=== PATIENT | female | born 1935 | race Caucasian/White ===

== ENCOUNTER 2018-03-15 18:41 | Emergency (ER) | payer MEDICARE, MEDICAID ==
[2018-03-15 18:44] VITALS: TEMP 97.3
[2018-03-15 19:08] LABS: HEMOGLOBIN 12.4 g/dL (11.0-16.0); MEAN CELL VOLUME 96.2 fL (81.0-99.0); MEAN CORPUSCULAR HEMOGLOBIN 33.2 pg (27.0-31.0); MEAN CORPUSCULAR HGB CONC 34.5 g/dL (33.0-37.0); MEAN PLATELET VOLUME 8.1 fL (7.2-11.7); RBC 3.73 Mil/uL (3.80-5.20); RED CELL DISTRIBUTION WIDTH 13.7 % (11.5-14.5); WHITE BLOOD COUNT 7.2 K/uL (4.8-10.8)
[2018-03-15 19:42] LABS: ALB/GLOB RATIO 1.2 (1.0-2.1); ALBUMIN 3.9 g/dL (3.5-5.0); ALT/SGPT 30 U/L (9-52); AST/SGOT 48 U/L (14-36); BLOOD UREA NITROGEN 21 mg/dL (7-17); CALCIUM 8.1 mg/dl (8.6-10.4); GFR AFRICAN-AMERICAN > 60; GFR NON-AFRICAN AMERICAN > 60
[2018-03-15] MEDS ORDERED: Sodium Chloride 0.9% 1,000 ML IV SCH (20:15)
[2018-03-15] MEDS ORDERED: Iodixanol 320 MG/ML 100 ML BOTTLE IV ONE (21:46)
--- NOTE | 2018-03-15 22:50 | CT ---
EXAM: CT Abdomen and Pelvis With Intravenous Contrast CLINICAL HISTORY: 82 years old, female; Pain; Abdominal pain; Generalized; Patient HX: Diarrhea; Additional info: Diffuse abdominal tenderness with diarrhea TECHNIQUE: Axial computed tomography images of the abdomen and pelvis with intravenous contrast. All CT scans at this facility use one or more dose reduction techniques, viz.: automated exposure control; ma/kV adjustment per patient size (including targeted exams where dose is matched to indication; i.e. head); or iterative reconstruction technique. Coronal and sagittal reformatted images were created and reviewed. CONTRAST: 100 mL of visipaque 320 administered intravenously. COMPARISON: No relevant prior studies available. FINDINGS: Lung bases: Hyperinflation of lung bases. Minimal atelectasis/scarring. Mediastinum: Moderate to large hiatal hernia. ABDOMEN: Liver: No mass. No portal venous gas. Gallbladder and bile ducts: Gallbladder not visualized. Common bile duct: 1.2 cm in diameter. Pancreas: No ductal dilation. No mass. Spleen: No splenomegaly. Adrenals: Mild hypertrophy of adrenal glands. Kidneys and ureters: Too small to characterize lesion within RIGHT kidney. No hydronephrosis. Stomach and bowel: Fluid within small bowel. Fluid/loose stool within large bowel. Probable segmental areas of minimal to mild mural thickening of large bowel. Minimal to mild mucosal enhancement of large bowel. Scattered areas of pneumatosis of large bowel, most pronounced descending colon. No obstruction. PELVIS: Appendix: No findings to suggest acute appendicitis. Bladder: Borderline bladder wall thickening, 4-5 mm. Incomplete distention, limiting evaluation. Reproductive: Hysterectomy. ABDOMEN and PELVIS: Intraperitoneal space: No significant fluid collection. No free air. Bones/joints: Insufficiency fractures of sacral ala, right greater than left. Healing left superior and inferior pubic rami fractures. Moderate compression deformity T10 vertebral body, subacute to chronic. Mild compression deformity T11 vertebral body, chronic. Degenerative changes of spine. Soft tissues: Unremarkable. Vasculature: [id number] atherosclerotic disease. No aneurysm. Lymph nodes: No pathologically enlarged lymph nodes. IMPRESSION: 1. Probable mild colitis with scattered areas of pneumatosis. 2. Biliary ductal dilatation. Correlate with laboratory values. Consider MRCP. 3. Mild cystitis vs underdistention. Correlate with urinalysis. 4. Incidental/non-acute findings are described above.
[2018-03-15] MEDS ORDERED: Potassium Chloride 20 mEq ER Tab PO ONE (23:18)
[2018-03-16 02:02] VITALS: RESP 18
--- NOTE | 2018-03-16 02:11 | C.PDOC ---
History Of Present Illness 82 year old female presents to the ER with a complaint of watery diarrhea for the past few days. Patient reports she has been eating normally. Denies change in diet, nausea, vomiting, fever, hematuria, or dysuria. Chief Complaint (Nursing): GI Problem History Per: Patient History/Exam Limitations: no limitations Onset/Duration Of Symptoms: Days Current Symptoms Are (Timing): Still Present Quality Of Discomfort: Unable To Describe Associated Symptoms: denies: Fever, Nausea, Vomiting, Loss Of Appetite, Urinary Symptoms Exacerbating Factors: None Alleviating Factors: None Recent travel outside of the [place]: No Abnormal Vaginal Bleeding: No Past Medical History Reviewed: Historical Data, Nursing Documentation, Vital Signs Vital Signs: Last Vital Signs Temp 97.3 F L 03/15/18 18:42 Pulse 75 03/16/18 04:40 Resp 18 03/16/18 04:40 BP 119/72 03/16/18 04:40 Pulse Ox 98 03/16/18 04:40 - Medical History PMH: Seizures Family History: States: Stroke (3 years ago with right sided weakness) - Social History Hx Tobacco Use: No Hx Alcohol Use: No Hx Substance Use: No - Immunization History Hx Influenza Vaccination: Yes Hx Pneumococcal Vaccination: Yes Review Of Systems Constitutional: Negative for: Fever, Chills Cardiovascular: Negative for: Chest Pain, Palpitations Respiratory: Negative for: Cough, Shortness of Breath Gastrointestinal: Positive for: Diarrhea. Negative for: Nausea, Vomiting Genitourinary: Negative for: Dysuria, Hematuria Physical Exam - Physical Exam Appears: Non-toxic Skin: Normal Color, Warm, Dry Head: Atraumatic, Normacephalic Eye(s): bilateral: Normal Inspection Oral Mucosa: Moist Chest: Symmetrical, No Tenderness Cardiovascular: Rhythm Regular Respiratory: Normal Breath Sounds, No Rales, No Rhonchi, No Wheezing Gastrointestinal/Abdominal: Soft, Tenderness (Mild right sided), No Guarding, No Rebound Neurological/Psych: Oriented x3, Normal Speech ED Course And Treatment - Laboratory Results Result Diagrams: 03/15/18 19:04 03/15/18 19:04 O2 Sat by Pulse Oximetry: 97 (room air) Pulse Ox Interpretation: Normal Progress Note: CT abd/pel and blood work ordered. Potassium and IV fluids administered. Disposition - Disposition Referrals: Todd Cast MD [Staff Provider] - Disposition: HOME/ ROUTINE Disposition Time: 22:55 Condition: IMPROVED Additional Instructions: Thank you for letting us take care of you today. The emergency medical care you received today was directed at your acute symptoms. If you were prescribed any medication, please fill it and take as directed. It may take several days for your symptoms to resolve. Return to the Emergency Department if your symptoms worsen, do not improve, or if you have any other problems. Please contact your doctor or call one of the physicians/clinics you have been referred to that are listed on the Patient Visit Information form that is included in your discharge packet. Bring any paperwork you were given at discharge with you along with any medications you are taking to your follow up visit. Our treatment cannot replace ongoing medical care by a primary care provider (PCP) outside of the emergency department. Thank you for allowing the [facility] team to be part of your care today. Follow up with your doctor in 2-3 days for re-evaluation and further management. Prescriptions: Ciprofloxacin [Cipro] 500 mg PO BID #20 tab metroNIDAZOLE [Flagyl] 500 mg PO Q8 #30 tab Instructions: Microscopic Colitis Forms: [employer] (Hungarian) - Clinical Impression Clinical Impression: Colitis, Diarrhea - Scribe Statement The provider has reviewed the documentation as recorded by the Scribe Jos Carrasquillo All medical record entries made by the Scribe were at my direction and personally dictated by me. I have reviewed the chart and agree that the record accurately reflects my personal performance of the history, physical exam, medical decision making, and the department course for this patient. I have also personally directed, reviewed, and agree with the discharge instructions and disposition.
[2018-03-16 04:40] VITALS: BP 119/72; PULSE 75
[2018-03-16 05:42] VITALS: O2SAT 97
[2018-03-16] MEDS ORDERED: Potassium Chloride 20 mEq ER Tab PO SCH (10:00)
== END 2018-03-16 04:42 | disposition home or self-care (01) ==
LOC: C.ER 18:41
DX: K52.9 Noninfective gastroenteritis and colitis, unspecified (principal); E87.6 Hypokalemia
CPT/HCPCS: 74177; 80053; 85027; 99284; J3480; J7040; Q9967

== ENCOUNTER 2018-05-04 20:01 | Inpatient (IN) | payer MEDICARE, MEDICAID ==
--- NOTE | 2018-05-04 20:59 | C.PDOC ---
History Of Present Illness 82 year old female presents to the ER with friend complaining of generalized itchiness. Patient states her home is infested with bugs. Denies fever or chills. Chief Complaint (Nursing): Abnormal Skin Integrity History Per: Patient History/Exam Limitations: no limitations Onset/Duration Of Symptoms: Days Current Symptoms Are (Timing): Still Present Quality Of Symptoms: Itching Recent travel outside of the [place]: No Past Medical History Reviewed: Historical Data, Nursing Documentation, Vital Signs Vital Signs: Last Vital Signs Temp 98.0 F 05/04/18 20:35 Pulse 85 05/04/18 23:17 Resp 18 05/04/18 23:17 BP 171/87 H 05/04/18 23:17 Pulse Ox 100 05/04/18 23:17 - Medical History PMH: Seizures Surgical History: Cholecystectomy Family History: States: Stroke (3 years ago with right sided weakness) - Social History Hx Tobacco Use: No Hx Alcohol Use: No Hx Substance Use: No - Immunization History Hx Tetanus Toxoid Vaccination: No Hx Influenza Vaccination: Yes Hx Pneumococcal Vaccination: Yes Review Of Systems Constitutional: Negative for: Fever, Chills Cardiovascular: Negative for: Chest Pain, Palpitations Respiratory: Negative for: Cough, Shortness of Breath Skin: Positive for: Rash Physical Exam - Physical Exam Appears: Non-toxic Skin: Warm, Dry, Other (Lesions to extremities, spares the back) Head: Atraumatic, Normacephalic Eye(s): bilateral: Normal Inspection Oral Mucosa: Moist Neck: Normal, Supple Chest: Symmetrical, No Tenderness Cardiovascular: Rhythm Regular Respiratory: Normal Breath Sounds, No Rales, No Rhonchi, No Wheezing Gastrointestinal/Abdominal: Soft, No Tenderness Neurological/Psych: Oriented x3, Normal Speech ED Course And Treatment - Laboratory Results Result Diagrams: 05/04/18 21:10 05/04/18 21:10 O2 Sat by Pulse Oximetry: 100 (Room air) Pulse Ox Interpretation: Normal Progress Note: EKG, blood work, and urinalysis ordered. Disposition Discussed With : Roberto Shafer Doctor Will See Patient In The: Hospital Counseled Patient/Family Regarding: Diagnosis - Disposition Disposition: HOSPITALIZED Disposition Time: 00:09 Condition: STABLE Forms: [facility] [employer] (Estonian) - POA Present On Arrival: None - Clinical Impression Clinical Impression: Skin irritation, Insect bite - Scribe Statement The provider has reviewed the documentation as recorded by the Scribe Jos Carrasquillo All medical record entries made by the Scribe were at my direction and personally dictated by me. I have reviewed the chart and agree that the record accurately reflects my personal performance of the history, physical exam, medical decision making, and the department course for this patient. I have also personally directed, reviewed, and agree with the discharge instructions and disposition.
[2018-05-04 21:13] LABS: BASO % 0.4 % (0.0-2.0); EOS # 0.8 K/uL (0.0-0.7); EOS % 11.9 % (0.0-4.0); HEMOGLOBIN 11.5 g/dL (11.0-16.0); LYMPH % 14.4 % (20.0-40.0); MEAN CORPUSCULAR HEMOGLOBIN 31.8 pg (27.0-31.0); MEAN CORPUSCULAR HGB CONC 33.5 g/dL (33.0-37.0); MEAN PLATELET VOLUME 7.4 fL (7.2-11.7); MONO # 0.7 K/uL (0.0-0.8); MONO % 10.2 % (0.0-10.0); NEUT # 4.4 K/uL (1.8-7.0); NEUT % 63.1 % (50.0-75.0); RBC 3.61 Mil/uL (3.80-5.20); RED CELL DISTRIBUTION WIDTH 14.3 % (11.5-14.5)
[2018-05-04 21:20] LABS: INR 1.2; PROTHROMBIN TIME 12.6 SECONDS (9.7-12.2)
[2018-05-04 21:25] LABS: ALBUMIN 3.9 g/dL (3.5-5.0); ALT/SGPT 27 U/L (9-52); AST/SGOT 32 U/L (14-36); BLOOD UREA NITROGEN 9 mg/dL (7-17); CALCIUM 8.7 mg/dl (8.6-10.4); GFR AFRICAN-AMERICAN > 60; GFR NON-AFRICAN AMERICAN > 60
[2018-05-04 22:42] LABS: URINE BACTERIA OCC (<OCC); URINE BILIRUBIN NEGATIVE (NEGATIVE); URINE BLOOD NEGATIVE (NEGATIVE); URINE CLARITY Hazy (Clear); URINE COLOR Straw (YELLOW); URINE GLUCOSE (UA) NORMAL (Normal); URINE LEUKOCYTE ESTERASE TRACE Leu/uL (Negative); URINE PROTEIN 2+ mg/dL (NEGATIVE); URINE UROBILINOGEN NORMAL mg/dL (0.2-1.0)
--- NOTE | 2018-05-05 00:53 | CP.PCM.HP ---
<Bailee Wood - Last Filed: 05/05/18 01:33> History of Present Illness - History of Present Illness History of Present Illness: CC: itchiness, home-infested with bugs 82 F presents to the ER with friend complaining of generalized itchiness. Patient states her home is infested with bugs. Patient denies fever, chills, seizures, cough, abdominal pain. Patient admits to decreased appetite, occasional diarrhea. Patient states she lives at home alone. Patient's brother is in [place] and nieces are in [facility]. pmh: ventral hernia, cva, severe kyphosis, GI issue which leads to diarrhea, left knee arthritis (patient gets steroid injections), history of seizure. surgeries: cholecystectomy, ovarian cyst removal Social: never smoker, no etoh use, no illicit drug use. Allergies: NKDA Present on Admission - Present on Admission Any Indicators Present on Admission: No History of DVT/PE: No History of Uncontrolled Diabetes: No Urinary Catheter: No Decubitus Ulcer Present: No Past Patient History - Past Social History Smoking Status: Never Smoked - NEUROLOGICAL Hx Seizures: Yes - PSYCHIATRIC Hx Substance Use: No - SURGICAL HISTORY Hx Cholecystectomy: Yes - ANESTHESIA Hx Anesthesia: Yes Hx Anesthesia Reactions: No Meds Allergies/Adverse Reactions: Allergies Allergy/AdvReac Type Severity Reaction Status Date / Time No Known Allergies Allergy Verified 05/04/18 20:13 Physical Exam - Constitutional Appears: No Acute Distress, Unkempt (hair is neat, patient's lower extremities has poor care) - Head Exam Head Exam: ATRAUMATIC, NORMAL INSPECTION, NORMOCEPHALIC - Eye Exam Eye Exam: EOMI Pupil Exam: NORMAL ACCOMODATION, PERRL Additional comments: periorbital swelling and discoloration/hyperpigmentation. - ENT Exam ENT Exam: Mucous Membranes Moist, Normal Exam - Neck Exam Neck exam: Positive for: Normal Inspection - Respiratory Exam Respiratory Exam: NORMAL BREATHING PATTERN. absent: Accessory Muscle Use - Cardiovascular Exam Cardiovascular Exam: REGULAR RHYTHM, +S1, +S2 - GI/Abdominal Exam GI & Abdominal Exam: Normal Bowel Sounds, Soft. absent: Tenderness - Extremities Exam Extremities exam: Positive for: normal inspection. Negative for: full ROM ( decreased range of motion due to stroke history and left knee arthritis), pedal edema - Back Exam Additional comments: severe kyphosis skin lesions - Neurological Exam Neurological exam: Alert, CN II-XII Intact, Oriented x3 - Psychiatric Exam Psychiatric exam: Normal Affect, Normal Mood - Skin Skin Exam: Dry, Mottled, Warm Additional comments: skin lesions. Results - Vital Signs Recent Vital Signs: Last Vital Signs Temp 98.0 F 05/04/18 20:35 Pulse 85 05/04/18 23:17 Resp 18 05/04/18 23:17 BP 171/87 H 05/04/18 23:17 Pulse Ox 100 05/05/18 00:10 - Labs Result Diagrams: 05/04/18 21:10 05/04/18 21:10 Labs: Laboratory Results - last 24 hr 05/04/18 05/04/18 05/04/18 21:10 21:10 21:10 WBC 7.0 RBC 3.61 L Hgb 11.5 Hct 34.3 MCV 95.0 MCH 31.8 H MCHC 33.5 RDW 14.3 Plt Count 368 MPV 7.4 Neut % (Auto) 63.1 Lymph % (Auto) 14.4 L [place] % (Auto) 10.2 H Eos % (Auto) 11.9 H Baso % (Auto) 0.4 Neut # (Auto) 4.4 Lymph # (Auto) 1.0 [place] # (Auto) 0.7 Eos # (Auto) 0.8 H Baso # (Auto) 0.0 PT 12.6 H INR 1.2 APTT 32 Sodium 135 Potassium 3.8 Chloride 101 Carbon Dioxide 24 Anion Gap 14 BUN 9 Creatinine 0.6 L Est GFR ( Amer) > 60 Est GFR (Non-Af Amer) > 60 Random Glucose 90 Calcium 8.7 Total Bilirubin 0.4 AST 32 ALT 27 Alkaline Phosphatase 165 H Total Protein 7.7 Albumin 3.9 Globulin 3.8 Albumin/Globulin Ratio 1.0 Urine Color Urine Clarity Urine pH Ur Specific [place] Urine Protein Urine Glucose (UA) Urine Ketones Urine Blood Urine Nitrate Urine Bilirubin Urine Urobilinogen Ur Leukocyte Esterase Urine WBC (Auto) Urine RBC (Auto) Urine Bacteria 05/04/18 22:32 WBC RBC Hgb Hct MCV MCH MCHC RDW Plt Count MPV Neut % (Auto) Lymph % (Auto) [place] % (Auto) Eos % (Auto) Baso % (Auto) Neut # (Auto) Lymph # (Auto) [place] # (Auto) Eos # (Auto) Baso # (Auto) PT INR APTT Sodium Potassium Chloride Carbon Dioxide Anion Gap BUN Creatinine Est GFR ( Amer) Est GFR (Non-Af Amer) Random Glucose Calcium Total Bilirubin AST ALT Alkaline Phosphatase Total Protein Albumin Globulin Albumin/Globulin Ratio Urine Color Straw Urine Clarity Hazy Urine pH 6.0 Ur Specific [place] 1.002 L Urine Protein 2+ H Urine Glucose (UA) Normal Urine Ketones Negative Urine Blood Negative Urine Nitrate Negative Urine Bilirubin Negative Urine Urobilinogen Normal Ur Leukocyte Esterase Trace H Urine WBC (Auto) 2 Urine RBC (Auto) 3 Urine Bacteria Occ H Assessment & Plan - Assessment and Plan (Free Text) Assessment: apartment infestation with bugs, full body pruritis tape sent for lesion scrapings for oil prep to view under microscope. permethrin 5% cream patient needs warm sponge bath with soap touch up worker: Patient had an aid that visited her house, but stopped coming due to bug infestation, per patient. PT OT eval and treat Allergies: Loratidine history of seizures Phenobarbital 6.9 mg PO TID Prophylaxis: scds heparin 5000 sc q8h Bailee Wood DO PGY1 - Date & Time Date: 05/05/18 Time: 01:42 <Roberto Shafer P - Last Filed: 05/05/18 07:18> Results - Vital Signs Recent Vital Signs: Last Vital Signs Temp 97.6 F 05/05/18 01:26 Pulse 100 H 05/05/18 01:26 Resp 20 05/05/18 01:26 BP 163/81 H 05/05/18 01:26 Pulse Ox 98 05/05/18 02:49 - Labs Result Diagrams: 05/04/18 21:10 05/04/18 21:10 Labs: Laboratory Results - last 24 hr 05/04/18 05/04/18 05/04/18 21:10 21:10 21:10 WBC 7.0 RBC 3.61 L Hgb 11.5 Hct 34.3 MCV 95.0 MCH 31.8 H MCHC 33.5 RDW 14.3 Plt Count 368 MPV 7.4 Neut % (Auto) 63.1 Lymph % (Auto) 14.4 L [place] % (Auto) 10.2 H Eos % (Auto) 11.9 H Baso % (Auto) 0.4 Neut # (Auto) 4.4 Lymph # (Auto) 1.0 [place] # (Auto) 0.7 Eos # (Auto) 0.8 H Baso # (Auto) 0.0 PT 12.6 H INR 1.2 APTT 32 Sodium 135 Potassium 3.8 Chloride 101 Carbon Dioxide 24 Anion Gap 14 BUN 9 Creatinine 0.6 L Est GFR ( Amer) > 60 Est GFR (Non-Af Amer) > 60 Random Glucose 90 Calcium 8.7 Total Bilirubin 0.4 AST 32 ALT 27 Alkaline Phosphatase 165 H Total Protein 7.7 Albumin 3.9 Globulin 3.8 Albumin/Globulin Ratio 1.0 Urine Color Urine Clarity Urine pH Ur Specific [place] Urine Protein Urine Glucose (UA) Urine Ketones Urine Blood Urine Nitrate Urine Bilirubin Urine Urobilinogen Ur Leukocyte Esterase Urine WBC (Auto) Urine RBC (Auto) Urine Bacteria 05/04/18 22:32 WBC RBC Hgb Hct MCV MCH MCHC RDW Plt Count MPV Neut % (Auto) Lymph % (Auto) [place] % (Auto) Eos % (Auto) Baso % (Auto) Neut # (Auto) Lymph # (Auto) [place] # (Auto) Eos # (Auto) Baso # (Auto) PT INR APTT Sodium Potassium Chloride Carbon Dioxide Anion Gap BUN Creatinine Est GFR ( Amer) Est GFR (Non-Af Amer) Random Glucose Calcium Total Bilirubin AST ALT Alkaline Phosphatase Total Protein Albumin Globulin Albumin/Globulin Ratio Urine Color Straw Urine Clarity Hazy Urine pH 6.0 Ur Specific [place] 1.002 L Urine Protein 2+ H Urine Glucose (UA) Normal Urine Ketones Negative Urine Blood Negative Urine Nitrate Negative Urine Bilirubin Negative Urine Urobilinogen Normal Ur Leukocyte Esterase Trace H Urine WBC (Auto) 2 Urine RBC (Auto) 3 Urine Bacteria Occ H Attending/Attestation - Attestation I have personally seen and examined this patient.: Yes I have fully participated in the care of the patient.: Yes I have reviewed all pertinent clinical information: Yes Notes (Text): Assessment * Whole body rash except palms, soles, mucous membrane, face, in form of papula , patches, scales on erythema, some scabs with excoriation including in between the toes, digits, increasing itching in the night, no bugs found on patient's clothes in ER, clinically scabies, vs whole body dermatitis, not contact dermatitis due to no clear pattern. 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 Plan * Skin scrapes for testing * Empiric permethrin * Social service to assess home situation and eradicate in indeed scabies is diagnosis, or bed bugs. * Gi/DVT prophylaxis * See orders for detail.
[2018-05-05] MEDS ORDERED: Permethrin 5% Cream(60 gm) TOP ONE ×2 (05:00→08:00)
--- NOTE | 2018-05-05 13:10 | CP.PCM.PN ---
<Anaid Benedict - Last Filed: 05/05/18 13:54> Subjective - Date & Time of Evaluation Date of Evaluation: 05/05/18 Time of Evaluation: 13:08 - Subjective Subjective: Medicine progress note for Dr. Saloni Trejo Patient was seen and examined at bedside in no acute distress. Patient reports feeling well and denies itchy and/or painful skin. She denies chest pain, abdominal pain, nausea, vomiting, fevers, headaches, dysuria, constipation. Objective - Vital Signs/Intake and Output Vital Signs (last 24 hours): Temp Pulse Resp BP Pulse Ox 97.7 F 85 20 129/68 97 05/05/18 07:10 05/05/18 07:10 05/05/18 07:10 05/05/18 07:10 05/05/18 12:00 - Medications Medications: Current Medications Acetaminophen (Tylenol 325mg Tab) 650 mg PO Q6 PRN PRN Reason: Fever >100.4 F Last Admin: 05/05/18 02:09 Dose: 650 mg Heparin Sodium (Porcine) (Heparin) 5,000 units SC Q8 [facility] Last Admin: 05/05/18 06:14 Dose: 5,000 units Loratadine (Claritin) 10 mg PO DAILY [facility] Last Admin: 05/05/18 10:35 Dose: 10 mg Phenobarbital (Phenobarbital Tab) 64.8 mg PO TID [facility] Last Admin: 05/05/18 10:35 Dose: 64.8 mg - Labs Labs: 05/04/18 21:10 05/04/18 21:10 PT 12.6 SECONDS (9.7-12.2) H 05/04/18 21:10 INR 1.2 05/04/18 21:10 APTT 32 SECONDS (21-34) 05/04/18 21:10 - Additional Findings Additional findings: - Constitutional Appears: No Acute Distress - Head Exam Head Exam: ATRAUMATIC, NORMAL INSPECTION, NORMOCEPHALIC - Eye Exam Eye Exam: EOMI Pupil Exam: NORMAL ACCOMODATION, PERRL Additional comments: periorbital swelling and discoloration/hyperpigmentation. - ENT Exam ENT Exam: Mucous Membranes Moist, Normal Exam - Neck Exam Neck exam: Positive for: Normal Inspection - Respiratory Exam Respiratory Exam: NORMAL BREATHING PATTERN. absent: Accessory Muscle Use - Cardiovascular Exam Cardiovascular Exam: REGULAR RHYTHM, +S1, +S2 - GI/Abdominal Exam GI & Abdominal Exam: Normal Bowel Sounds, Soft. absent: Tenderness - Extremities Exam Extremities exam: Decreased ROM of RUE (decreased range of motion due to stroke history and left knee arthritis); absent: pedal edema - Back Exam Additional comments: severe kyphosis, excoriations noted on UE/LE bilaterally, and abdomen - Neurological Exam Neurological exam: Alert, CN II-XII Intact, Oriented x3 - Psychiatric Exam Psychiatric exam: Normal Affect, Normal Mood - Skin Skin Exam: Dry, Warm, excoriations noted on UE/LE bilaterally, and abdomen Assessment and Plan - Assessment and Plan (Free Text) Assessment: Apartment infestation with bugs, full body pruritis Likely scabies, will treat with Permethrin 5% cream Patient needs warm sponge bath with soap PT OT eval and treat Allergies: Loratidine History of seizures Phenobarbital 6.9 mg PO TID Prophylaxis: SCDs heparin 5000 sc q8h social worker psychiatric: Patient requires home services, cleaning and fumigation of house. social worker psychiatric will contact the home service the patient uses " [facility]" to determine whether appropriate care has been given and to request services to clean house. Patient will be evaluated by PT to determine in patient should go to [facility]. <Smooth Trejo - Last Filed: 05/05/18 18:47> Objective - Vital Signs/Intake and Output Vital Signs (last 24 hours): Temp Pulse Resp BP Pulse Ox 97.6 F 87 18 134/79 100 05/05/18 15:00 05/05/18 15:00 05/05/18 15:00 05/05/18 15:00 05/05/18 16:00 - Medications Medications: Current Medications Acetaminophen (Tylenol 325mg Tab) 650 mg PO Q6 PRN PRN Reason: Fever >100.4 F Last Admin: 05/05/18 02:09 Dose: 650 mg Aspirin (Aspirin Chewable) 81 mg PO DAILY [facility] Heparin Sodium (Porcine) (Heparin) 5,000 units SC Q8 [facility] Last Admin: 05/05/18 13:37 Dose: 5,000 units Ivermectin (Stromectol) 12 mg PO ONCE ONE PRN Reason: Protocol Stop: 05/06/18 06:01 Loratadine (Claritin) 10 mg PO DAILY [facility] Last Admin: 05/05/18 10:35 Dose: 10 mg Phenobarbital (Phenobarbital Tab) 64.8 mg PO TID [facility] Last Admin: 05/05/18 17:12 Dose: 64.8 mg Rosuvastatin Calcium (Crestor) 5 mg PO HS [facility] - Labs Labs: 05/04/18 21:10 05/04/18 21:10 PT 12.6 SECONDS (9.7-12.2) H 05/04/18 21:10 INR 1.2 05/04/18 21:10 APTT 32 SECONDS (21-34) 05/04/18 21:10 Attending/Attestation - Attestation I have personally seen and examined this patient.: Yes I have fully participated in the care of the patient.: Yes I have reviewed all pertinent clinical information, including history, physical exam and plan: Yes Notes (Text): 05/05/18 18:41 Patient was seen and examined at 5:00 PM Exam, assessment and plan were gone over with Resident Dr. Gonzalez. Also on Exam: Multiple excoriations (without evidence of surrounding cellulitis) and eschars that are consistent with Scabies are present on the entire bilateral arms, entire bilateral legs, left lower quadrant abdomen, and bilateral trapezius areas Also for Assessment and Plan: Hx CVA: ASA 81 mg PO 1x/day and Crestor 5 mg PO 1x/day Confirmed with Nurse Matilda that Permethrin Cream was applied. Considering extent of infection, Ivermectin 12 mg (based upon a weight of 57 kg at a dose of 200 mcg/kg) has been ordered for morning 05/06/18 at 6 AM to be given on empty stomach with plenty of water. Plan is for PT/OT evaluation and if JOSE recommended then patient will have to have her residence thoroughly sanitized. Smooth Trejo D.O.
[2018-05-06 00:25] VITALS: RESP 20
--- NOTE | 2018-05-06 03:59 | CP.PCM.PN ---
<Adeel Guan - Last Filed: 05/06/18 07:15> Subjective - Date & Time of Evaluation Date of Evaluation: 05/06/18 Time of Evaluation: 06:20 - Subjective Subjective: PGY1 Medicine Note for Dr. Janis Trejo Patient seen and examined this morning at bedside. No acute events over night. Patient states she is feeling well. She is tolerating her diet and currently has no pain. Patient has no complaints at this time. Currently awaiting [facility] placement. Objective - Vital Signs/Intake and Output Vital Signs (last 24 hours): Temp Pulse Resp BP Pulse Ox 98.7 F 87 20 127/68 98 05/05/18 23:38 05/05/18 23:38 05/05/18 23:38 05/05/18 23:38 05/05/18 23:38 - Medications Medications: Current Medications Acetaminophen (Tylenol 325mg Tab) 650 mg PO Q6 PRN PRN Reason: Fever >100.4 F Last Admin: 05/05/18 21:03 Dose: 650 mg Aspirin (Aspirin Chewable) 81 mg PO DAILY [facility] Heparin Sodium (Porcine) (Heparin) 5,000 units SC Q8 [facility] Last Admin: 05/05/18 21:03 Dose: 5,000 units Ivermectin (Stromectol) 12 mg PO ONCE ONE PRN Reason: Protocol Stop: 05/06/18 06:01 Loratadine (Claritin) 10 mg PO DAILY [facility] Last Admin: 05/05/18 10:35 Dose: 10 mg Phenobarbital (Phenobarbital Tab) 64.8 mg PO TID [facility] Last Admin: 05/05/18 17:12 Dose: 64.8 mg Rosuvastatin Calcium (Crestor) 5 mg PO HS [facility] Last Admin: 05/05/18 21:04 Dose: 5 mg - Labs Labs: 05/04/18 21:10 05/04/18 21:10 PT 12.6 SECONDS (9.7-12.2) H 05/04/18 21:10 INR 1.2 05/04/18 21:10 APTT 32 SECONDS (21-34) 05/04/18 21:10 - Constitutional Appears: Non-toxic, No Acute Distress - Head Exam Head Exam: ATRAUMATIC, NORMOCEPHALIC - Eye Exam Eye Exam: EOMI, Normal appearance, PERRL Pupil Exam: NORMAL ACCOMODATION Additional comments: periorbital swelling and discoloration/hyperpigmentation. - ENT Exam ENT Exam: Mucous Membranes Moist - Respiratory Exam Respiratory Exam: Clear to Ausculation Bilateral, NORMAL BREATHING PATTERN. absent: Accessory Muscle Use, Respiratory Distress - Cardiovascular Exam Cardiovascular Exam: REGULAR RHYTHM, +S1, +S2 - GI/Abdominal Exam GI & Abdominal Exam: Soft, Normal Bowel Sounds. absent: Firm, Guarding, Rigid, Tenderness - Extremities Exam Extremities Exam: absent: Full ROM (RUE - decreased range of motion due to stroke history and left knee arthritis), Pedal Edema - Neurological Exam Neurological Exam: Alert, Awake, CN II-XII Intact, Oriented x3 - Psychiatric Exam Psychiatric exam: Normal Affect, Normal Mood - Skin Skin Exam: Dry, Warm Assessment and Plan - Assessment and Plan (Free Text) Plan: Apartment infestation with bugs, full body pruritis Likely scabies, will treat with Permethrin 5% cream Patient needs warm sponge bath with soap PT OT eval and treat Allergies: Loratidine 10mg PO daily History of seizures Phenobarbital 64.8 mg PO TID Prophylaxis: SCDs heparin 5000 sc q8h Aspirin 81mg PO daily Crestor 5mg PO HS DISPO: Patient requires home services, cleaning and fumigation of house. chute worker will contact the home service the patient uses "[facility]" to determine whether appropriate care has been given and to request services to clean house. Patient will be evaluated by PT to determine in patient should go to [facility]. Patient currently pending [facility] placement. No update at this time. Will discuss case with Dr. Janis Guan PGY1 <Smooth Trejo - Last Filed: 05/06/18 11:53> Objective - Vital Signs/Intake and Output Vital Signs (last 24 hours): Temp Pulse Resp BP Pulse Ox 97.6 F 80 20 156/79 H 96 05/06/18 07:00 05/06/18 07:00 05/06/18 07:00 05/06/18 07:00 05/06/18 07:00 - Medications Medications: Current Medications Acetaminophen (Tylenol 325mg Tab) 650 mg PO Q6 PRN PRN Reason: Fever >100.4 F Last Admin: 05/05/18 21:03 Dose: 650 mg Aspirin (Aspirin Chewable) 81 mg PO DAILY [facility] Last Admin: 05/06/18 10:03 Dose: 81 mg Heparin Sodium (Porcine) (Heparin) 5,000 units SC Q8 [facility] Last Admin: 05/06/18 05:22 Dose: 5,000 units Loratadine (Claritin) 10 mg PO DAILY [facility] Last Admin: 05/06/18 10:03 Dose: 10 mg Phenobarbital (Phenobarbital Tab) 64.8 mg PO TID [facility] Last Admin: 05/06/18 10:40 Dose: 64.8 mg Rosuvastatin Calcium (Crestor) 5 mg PO HS [facility] Last Admin: 05/05/18 21:04 Dose: 5 mg - Labs Labs: 05/06/18 07:30 05/06/18 07:30 PT 12.6 SECONDS (9.7-12.2) H 05/04/18 21:10 INR 1.2 05/04/18 21:10 APTT 32 SECONDS (21-34) 05/04/18 21:10 Attending/Attestation - Attestation I have personally seen and examined this patient.: Yes I have fully participated in the care of the patient.: Yes I have reviewed all pertinent clinical information, including history, physical exam and plan: Yes Notes (Text): 05/06/18 11:38 Patient was seen and examined at 11:15 AM Exam, assessment and plan were gone over with Resident Dr. Saloni Montez. Explained to patient the nature of Scabies infection. She states that she keeps her home (where she lives alone) clean and believes that she may have picked up the infection from her neighbors upstairs who threw out their mattress out the window when they were moving and th e mattress passed by her window. I explained to her that this was not how Scabies was transmitted. Also on ROS: Has not moved bowels in 2 days (states that she usually cures this at home by having chocolate) Passing Flatus NO abdominal pain NO n/v and tolerating meals NO other complaints upon FULL ROS Also on Exam: Multiple excoriations (without evidence of surrounding cellulitis) and eschars that are consistent with Scabies are present on the entire bilateral arms, entire bilateral legs, left lower quadrant abdomen, and bilateral trapezius areas Also for Assessment and Plan: Hx CVA: ASA 81 mg PO 1x/day and Crestor 5 mg PO 1x/day Provided her with Prune Juice today to see if this will help with her constipation. Medicine Team will also bring her some [employer] Chocolate as she states that this works "like a charm". 05/05/18: Confirmed with Nurse Matilda that Permethrin Cream was applied. Considering extent of infection, Ivermectin 12 mg (based upon a weight of 57 kg at a dose of 200 mcg/kg) was given morning 05/06/18 at 6:30 AM. Plan is for PT/OT evaluation and if [facility] recommended then patient will have to have her residence thoroughly sanitized and this will have to be arranged with the help of Pen Tender/Firearms Assembly Supervisor as mentioned above. Smooth Trejo D.O.
[2018-05-06 07:41] LABS: BASO % 0.6 % (0.0-2.0); EOS # 1.2 K/uL (0.0-0.7); EOS % 20.2 % (0.0-4.0); HEMOGLOBIN 11.1 g/dL (11.0-16.0); LYMPH # 1.1 K/uL (1.0-4.3); LYMPH % 18.3 % (20.0-40.0); MEAN CELL VOLUME 96.8 fL (81.0-99.0); MEAN CORPUSCULAR HGB CONC 34.1 g/dL (33.0-37.0); MEAN PLATELET VOLUME 7.9 fL (7.2-11.7); MONO # 0.6 K/uL (0.0-0.8); MONO % 10.9 % (0.0-10.0); NEUT # 2.9 K/uL (1.8-7.0); NRBC % 0.1 % (0.0-2.0); PLATELET COUNT 361 K/uL (130-400); RBC 3.38 Mil/uL (3.80-5.20); RED CELL DISTRIBUTION WIDTH 14.9 % (11.5-14.5); WHITE BLOOD COUNT 5.8 K/uL (4.8-10.8)
[2018-05-06 08:04] LABS: ALBUMIN 3.5 g/dL (3.5-5.0); ALT/SGPT 19 U/L (9-52); AST/SGOT 28 U/L (14-36); BLOOD UREA NITROGEN 11 mg/dL (7-17); CALCIUM 8.1 mg/dl (8.6-10.4); GFR AFRICAN-AMERICAN > 60; GFR NON-AFRICAN AMERICAN > 60
[2018-05-06 10:59] LABS: EOSINOPHIL 19 % (0-4); LYMPHOCYTE 25 % (20-40); MONOCYTE 5 % (0-10); NEUTROPHIL 51 % (50-75); PLATELET ESTIMATE NORMAL (NORMAL); TOTAL CELLS COUNTED 100
--- NOTE | 2018-05-07 05:36 | CP.PCM.PN ---
<Adeel Guan - Last Filed: 05/07/18 08:14> Subjective - Date & Time of Evaluation Date of Evaluation: 05/07/18 Time of Evaluation: 08:14 - Subjective Subjective: PGY1 Medicine Note for Dr. Janis Trejo Patient seen and examined this morning at bedside. No acute events over night. Patient states she is feeling well. She is in good spirits this morning, stating she had 4 bowel movement yesterday. Her abdomen is feeling much better now. She is still itchy on her left arm. She tolerating her diet and currently has no complaints at this time. Currently awaiting [facility] placement. Objective - Vital Signs/Intake and Output Vital Signs (last 24 hours): Temp Pulse Resp BP Pulse Ox 98 F 93 H 20 112/76 99 05/07/18 00:00 05/07/18 00:00 05/07/18 00:00 05/07/18 00:00 05/07/18 00:00 - Medications Medications: Current Medications Acetaminophen (Tylenol 325mg Tab) 650 mg PO Q6 PRN PRN Reason: Fever >100.4 F Last Admin: 05/06/18 23:36 Dose: 650 mg Aspirin (Aspirin Chewable) 81 mg PO DAILY [facility] Last Admin: 05/06/18 10:03 Dose: 81 mg Heparin Sodium (Porcine) (Heparin) 5,000 units SC Q8 [facility] Last Admin: 05/06/18 22:29 Dose: 5,000 units Loratadine (Claritin) 10 mg PO DAILY [facility] Last Admin: 05/06/18 10:03 Dose: 10 mg Phenobarbital (Phenobarbital Tab) 64.8 mg PO TID [facility] Last Admin: 05/06/18 18:18 Dose: 64.8 mg Rosuvastatin Calcium (Crestor) 5 mg PO HS [facility] Last Admin: 05/06/18 22:29 Dose: 5 mg - Labs Labs: 05/06/18 07:30 05/06/18 07:30 PT 12.6 SECONDS (9.7-12.2) H 05/04/18 21:10 INR 1.2 05/04/18 21:10 APTT 32 SECONDS (21-34) 05/04/18 21:10 - Constitutional Appears: Non-toxic, No Acute Distress - Head Exam Head Exam: ATRAUMATIC, NORMOCEPHALIC - Eye Exam Eye Exam: EOMI, Normal appearance, PERRL Pupil Exam: NORMAL ACCOMODATION Additional comments: periorbital swelling and discoloration/hyperpigmentation. - ENT Exam ENT Exam: Mucous Membranes Moist - Respiratory Exam Respiratory Exam: Clear to Ausculation Bilateral, NORMAL BREATHING PATTERN. absent: Accessory Muscle Use, Rales, Rhonchi, Wheezes, Respiratory Distress - Cardiovascular Exam Cardiovascular Exam: REGULAR RHYTHM, +S1, +S2 - GI/Abdominal Exam GI & Abdominal Exam: Soft, Normal Bowel Sounds. absent: Distended, Firm, Guarding, Rigid, Tenderness - Extremities Exam Extremities Exam: absent: Calf Tenderness, Pedal Edema - Neurological Exam Neurological Exam: Alert, Awake, CN II-XII Intact, Oriented x3 - Psychiatric Exam Psychiatric exam: Normal Affect, Normal Mood - Skin Additional comments: Multiple excoriations and eschars on UE b/l consistent with scabies rash, no signs of cellulitis Assessment and Plan - Assessment and Plan (Free Text) Plan: Apartment infestation with bugs, full body pruritis Likely scabies, will treat with Permethrin 5% cream Patient needs warm sponge bath with soap PT OT eval and treat Allergies: Loratidine 10mg PO daily History of seizures Phenobarbital 64.8 mg PO TID Prophylaxis: SCDs heparin 5000 sc q8h Aspirin 81mg PO daily Crestor 5mg PO HS DISPO: Patient requires home services, cleaning and fumigation of house. stage set up worker will contact the home service the patient uses "[facility]" to determine whether appropriate care has been given and to request services to clean house. Patient will be evaluated by PT to determine in patient should go to [facility]. Patient currently pending [facility] placement. No update at this time. Case discussed with Dr. Janis Guan PGY1 <Smooth Trejo - Last Filed: 05/07/18 09:22> Objective - Vital Signs/Intake and Output Vital Signs (last 24 hours): Temp Pulse Resp BP Pulse Ox 97.7 F 85 20 133/68 96 05/07/18 07:19 05/07/18 07:19 05/07/18 07:19 05/07/18 07:19 05/07/18 07:19 Intake and Output: 05/07/18 05/07/18 06:59 18:59 Output Total 400 Balance -400 - Medications Medications: Current Medications Acetaminophen (Tylenol 325mg Tab) 650 mg PO Q6 PRN PRN Reason: Fever >100.4 F Last Admin: 05/06/18 23:36 Dose: 650 mg Aspirin (Aspirin Chewable) 81 mg PO DAILY [facility] Last Admin: 05/06/18 10:03 Dose: 81 mg Heparin Sodium (Porcine) (Heparin) 5,000 units SC Q8 [facility] Last Admin: 05/07/18 05:24 Dose: 5,000 units Loratadine (Claritin) 10 mg PO DAILY [facility] Last Admin: 05/06/18 10:03 Dose: 10 mg Phenobarbital (Phenobarbital Tab) 64.8 mg PO TID [facility] Last Admin: 05/06/18 18:18 Dose: 64.8 mg Rosuvastatin Calcium (Crestor) 5 mg PO HS [facility] Last Admin: 05/06/18 22:29 Dose: 5 mg - Labs Labs: 05/06/18 07:30 05/06/18 07:30 PT 12.6 SECONDS (9.7-12.2) H 05/04/18 21:10 INR 1.2 05/04/18 21:10 APTT 32 SECONDS (21-34) 05/04/18 21:10 Attending/Attestation - Attestation I have personally seen and examined this patient.: Yes I have fully participated in the care of the patient.: Yes I have reviewed all pertinent clinical information, including history, physical exam and plan: Yes Notes (Text): 05/07/18 09:18 Patient was seen and examined at 9:15 AM Also on ROS: She moved her bowels 3 times yesteday 05/06/18 and once this morning (normal) after having prune juice (NO [employer] chocolate bar required) NO pruritis except at the tape site of Left Arm IV access (nursing notified to change) NO abdominal pain NO n/v and tolerating meals NO other complaints upon FULL ROS Also on Exam: Multiple excoriations (without evidence of surrounding cellulitis) and eschars that are consistent with Scabies are present on the entire bilateral arms, entire bilateral legs, left lower quadrant abdomen, and bilateral trapezius areas Also for Assessment and Plan: Hx CVA: ASA 81 mg PO 1x/day and Crestor 5 mg PO 1x/day Considering extent of infection, Ivermectin 12 mg (based upon a weight of 57 kg at a dose of 200 mcg/kg) was given morning 05/06/18 at 6:30 AM. This along with Permethrin Cream should be repeated on 7 days should there be any suspicion that infection has not resolved. Plan is for PT/OT evaluation and if [facility] recommended then patient will have to have her residence thoroughly sanitized and this will have to be arranged with the help of Spanisher/Manufacturing Plant Technician as mentioned above. Smooth Trejo D.O.
[2018-05-07 09:49] LABS: BASO % 0.7 % (0.0-2.0); EOS % 14.2 % (0.0-4.0); HEMOGLOBIN 11.2 g/dL (11.0-16.0); LYMPH # 1.1 K/uL (1.0-4.3); LYMPH % 15.7 % (20.0-40.0); MEAN CELL VOLUME 95.7 fL (81.0-99.0); MEAN CORPUSCULAR HEMOGLOBIN 32.5 pg (27.0-31.0); MEAN PLATELET VOLUME 8.2 fL (7.2-11.7); MONO # 0.6 K/uL (0.0-0.8); MONO % 9.1 % (0.0-10.0); NEUT # 4.2 K/uL (1.8-7.0); NEUT % 60.3 % (50.0-75.0); RBC 3.44 Mil/uL (3.80-5.20); RED CELL DISTRIBUTION WIDTH 14.8 % (11.5-14.5)
[2018-05-07 10:24] LABS: ALB/GLOB RATIO 1.1 (1.0-2.1); ALBUMIN 3.9 g/dL (3.5-5.0); ALT/SGPT 27 U/L (9-52); AST/SGOT 31 U/L (14-36); BLOOD UREA NITROGEN 13 mg/dL (7-17); CALCIUM 8.5 mg/dl (8.6-10.4); GFR AFRICAN-AMERICAN > 60; GFR NON-AFRICAN AMERICAN > 60
--- NOTE | 2018-05-07 15:27 | CARD ---
APPROVED REPORT EKG Measurement Heart [id number] <Conclusion> Sinus rhythm with 1st degree AV block Otherwise normal ECG
[2018-05-08 07:32] LABS: BASO % 0.4 % (0.0-2.0); EOS # 1.1 K/uL (0.0-0.7); EOS % 17.8 % (0.0-4.0); HEMOGLOBIN 10.2 g/dL (11.0-16.0); LYMPH # 1.2 K/uL (1.0-4.3); LYMPH % 18.2 % (20.0-40.0); MEAN CORPUSCULAR HEMOGLOBIN 32.3 pg (27.0-31.0); MEAN CORPUSCULAR HGB CONC 33.7 g/dL (33.0-37.0); MEAN PLATELET VOLUME 7.9 fL (7.2-11.7); MONO # 0.7 K/uL (0.0-0.8); MONO % 10.3 % (0.0-10.0); NEUT # 3.4 K/uL (1.8-7.0); NEUT % 53.3 % (50.0-75.0); RBC 3.16 Mil/uL (3.80-5.20); RED CELL DISTRIBUTION WIDTH 14.5 % (11.5-14.5); WHITE BLOOD COUNT 6.4 K/uL (4.8-10.8)
[2018-05-08 07:56] LABS: ALB/GLOB RATIO 1.1 (1.0-2.1); ALBUMIN 3.4 g/dL (3.5-5.0); ALT/SGPT 38 U/L (9-52); AST/SGOT 51 U/L (14-36); BLOOD UREA NITROGEN 14 mg/dL (7-17); CALCIUM 7.8 mg/dl (8.6-10.4); GFR AFRICAN-AMERICAN > 60; GFR NON-AFRICAN AMERICAN > 60
--- NOTE | 2018-05-08 14:43 | CP.PCM.PN ---
<Anaid Benedict - Last Filed: 05/08/18 14:39> Subjective - Date & Time of Evaluation Date of Evaluation: 05/08/18 Time of Evaluation: 08:00 - Subjective Subjective: Medicine progress note for Dr. Rodriguez Patient was seen and examined at bedside in no acute distress. Patient reports feeling bloated after eating a hard boiled egg, otherwise has no complaints. She notes her skin is less irritated, itchy, and is improving. Patient denies chest pain, dyspnea, palpitations, cough, nausea, vomiting, fever, headaches, leg pain/swelling. Objective - Vital Signs/Intake and Output Vital Signs (last 24 hours): Temp Pulse Resp BP Pulse Ox 97.8 F 84 20 114/67 95 05/08/18 07:00 05/08/18 07:00 05/08/18 07:00 05/08/18 07:00 05/08/18 07:00 Intake and Output: 05/08/18 05/08/18 06:59 18:59 Output Total 200 Balance -200 - Medications Medications: Current Medications Acetaminophen (Tylenol 325mg Tab) 650 mg PO Q6 PRN PRN Reason: Fever >100.4 F Last Admin: 05/07/18 22:01 Dose: 650 mg Aspirin (Aspirin Chewable) 81 mg PO DAILY [facility] Last Admin: 05/08/18 10:07 Dose: 81 mg Loratadine (Claritin) 10 mg PO DAILY [facility] Last Admin: 05/08/18 10:07 Dose: 10 mg Phenobarbital (Phenobarbital Tab) 64.8 mg PO TID [facility] Last Admin: 05/08/18 13:18 Dose: 64.8 mg Rosuvastatin Calcium (Crestor) 5 mg PO HS [facility] Last Admin: 05/07/18 22:01 Dose: 5 mg - Labs Labs: 05/08/18 07:24 05/08/18 07:24 PT 12.6 SECONDS (9.7-12.2) H 05/04/18 21:10 INR 1.2 05/04/18 21:10 APTT 32 SECONDS (21-34) 05/04/18 21:10 - Additional Findings Additional findings: - Constitutional Appears: No Acute Distress - Head Exam Head Exam: ATRAUMATIC, NORMAL INSPECTION, NORMOCEPHALIC - Eye Exam Eye Exam: EOMI Pupil Exam: NORMAL ACCOMODATION, PERRL Additional comments: periorbital swelling and discoloration/hyperpigmentation. - ENT Exam ENT Exam: Mucous Membranes Moist, Normal Exam - Neck Exam Neck exam: Positive for: Normal Inspection - Respiratory Exam Respiratory Exam: NORMAL BREATHING PATTERN. absent: Accessory Muscle Use - Cardiovascular Exam Cardiovascular Exam: REGULAR RHYTHM, +S1, +S2 - GI/Abdominal Exam GI & Abdominal Exam: Normal Bowel Sounds, Soft. absent: Tenderness - Extremities Exam Extremities exam: Decreased ROM of RUE (decreased range of motion due to stroke history and left knee arthritis); absent: pedal edema - Back Exam Additional comments: severe kyphosis, excoriations noted on UE/LE bilaterally, and abdomen - Neurological Exam Neurological exam: Alert, CN II-XII Intact, Oriented x3 - Psychiatric Exam Psychiatric exam: Normal Affect, Normal Mood - Skin Skin Exam: Dry, Warm, excoriations noted on UE/LE bilaterally, and abdomen consistent with scabies rash, no signs of cellulitis Assessment and Plan - Assessment and Plan (Free Text) Plan: Apartment infestation with bugs, full body pruritis Likely scabies, will treat with Permethrin 5% cream * Ivermectin 12 mg was given morning 05/06/18 at 6:30 AM. This along with Permethrin Cream should be repeated in 7 days (05/13/18) should there be any suspicion that infection has not resolved. PT OT eval and treat Allergies: Loratidine 10mg PO daily History of seizures Phenobarbital 64.8 mg PO TID Prophylaxis: SCDs heparin 5000 sc q8h Aspirin 81mg PO daily Crestor 5mg PO HS DISPO: Patient requires home services, cleaning and fumigation of house. timber mill worker will contact the home service the patient uses "[facility]" to determine whether appropriate care has been given and to request services to clean house. Patient will be evaluated by PT to determine in patient should go to [facility]. Patient currently pending [facility] placement at [facility] or [facility]. No update at this time. <Simona Rodriguez V - Last Filed: 05/08/18 15:24> Objective - Vital Signs/Intake and Output Vital Signs (last 24 hours): Temp Pulse Resp BP Pulse Ox 97.8 F 84 20 114/67 95 05/08/18 07:00 05/08/18 07:00 05/08/18 07:00 05/08/18 07:00 05/08/18 07:00 Intake and Output: 05/08/18 05/08/18 06:59 18:59 Intake Total 480 Output Total 200 600 Balance -200 -120 - Medications Medications: Current Medications Acetaminophen (Tylenol 325mg Tab) 650 mg PO Q6 PRN PRN Reason: Fever >100.4 F Last Admin: 05/07/18 22:01 Dose: 650 mg Aspirin (Aspirin Chewable) 81 mg PO DAILY [facility] Last Admin: 05/08/18 10:07 Dose: 81 mg Loratadine (Claritin) 10 mg PO DAILY [facility] Last Admin: 05/08/18 10:07 Dose: 10 mg Phenobarbital (Phenobarbital Tab) 64.8 mg PO TID [facility] Last Admin: 05/08/18 13:18 Dose: 64.8 mg Rosuvastatin Calcium (Crestor) 5 mg PO HS [facility] Last Admin: 05/07/18 22:01 Dose: 5 mg - Labs Labs: 05/08/18 07:24 05/08/18 07:24 PT 12.6 SECONDS (9.7-12.2) H 05/04/18 21:10 INR 1.2 05/04/18 21:10 APTT 32 SECONDS (21-34) 05/04/18 21:10 Assessment and Plan (1) Scabies Assessment & Plan: Patient received 5% Cream 0 gm topical on 05/05/18 Patient received dose of Ivermectin 12mg PO once on 05/06/18. Rash is improving and fading Contact isolation Status: Acute (2) Scabies exposure Assessment & Plan: patient's housing site of exposure Status: Acute (3) Asymptomatic bacteriuria Assessment & Plan: Patient is not symptomatic of urinary tract infection Patient not on antibiotic given she is not symptomatic. Status: Acute (4) History of ventral hernia Status: Chronic (5) Arthritis Status: Chronic (6) History of CVA (cerebrovascular accident) Assessment & Plan: Aspirin 81mg PO daily Crestor 5mg POqHS Status: Chronic (7) History of seasonal allergies Assessment & Plan: Claritin 10mg PO daily Status: Acute (8) History of seizures Assessment & Plan: Phenobarbital 64.8 PO TID Status: Chronic (9) Prophylactic measure Assessment & Plan: Heparin 5000 units subq 8H PT/OT eval Subacute rehab eval Status: Acute Attending/Attestation - Attestation I have personally seen and examined this patient.: Yes I have fully participated in the care of the patient.: Yes I have reviewed all pertinent clinical information, including history, physical exam and plan: Yes Notes (Text): Patient seen, examined and case discussed with medical biller/coder. Patient reports she is doing well. Patient reports mild stomach upset secondary to egg consumption. Patient has received dose of Premethrin and Ivermectin over the weekend. Patient is amenable to subacute rehab. Case and social work working towards subacute rehab for discharge planning. Updated assessment/plan as above. Patient is medically stable for discharge pending bed availablity.
[2018-05-09 07:56] LABS: BASO # 0.1 K/uL (0.0-0.2); BASO % 0.8 % (0.0-2.0); EOS # 1.2 K/uL (0.0-0.7); EOS % 18.2 % (0.0-4.0); HEMOGLOBIN 10.4 g/dL (11.0-16.0); LYMPH # 1.3 K/uL (1.0-4.3); MEAN CELL VOLUME 95.6 fL (81.0-99.0); MEAN CORPUSCULAR HEMOGLOBIN 32.1 pg (27.0-31.0); MEAN CORPUSCULAR HGB CONC 33.6 g/dL (33.0-37.0); MEAN PLATELET VOLUME 8.4 fL (7.2-11.7); MONO # 0.8 K/uL (0.0-0.8); MONO % 11.3 % (0.0-10.0); NEUT # 3.3 K/uL (1.8-7.0); NEUT % 49.7 % (50.0-75.0); NRBC % 0.1 % (0.0-2.0); RBC 3.24 Mil/uL (3.80-5.20); RED CELL DISTRIBUTION WIDTH 14.4 % (11.5-14.5); WHITE BLOOD COUNT 6.7 K/uL (4.8-10.8)
[2018-05-09 08:15] LABS: ALB/GLOB RATIO 1.1 (1.0-2.1); ALBUMIN 3.6 g/dL (3.5-5.0); ALT/SGPT 71 U/L (9-52); AST/SGOT 89 U/L (14-36); BLOOD UREA NITROGEN 14 mg/dL (7-17); CALCIUM 8.6 mg/dl (8.6-10.4); GFR AFRICAN-AMERICAN > 60; GFR NON-AFRICAN AMERICAN > 60
--- NOTE | 2018-05-09 14:46 | CP.PCM.PN ---
Addendum entered and electronically signed by Anaid Benedict 05/09/18 16:03 : Correction: Patient accepted to [facility] at [facility]. Original Note: <Anaid Benedict - Last Filed: 05/09/18 15:54> Subjective - Date & Time of Evaluation Date of Evaluation: 05/09/18 Time of Evaluation: 14:46 - Subjective Subjective: Medicine progress note for Dr. Rodriguez Patient was seen and examined at bedside in no acute distress. Patient states she feels bloated after having breakfast and has no had a BM in two days. She admits to flatus. She also states having intermittent itchy skin, but states her skin has improved overall. Patient denies chest pain, abdominal pain, nausea , vomiting, fevers, headaches, dysuria. Objective - Vital Signs/Intake and Output Vital Signs (last 24 hours): Temp Pulse Resp BP Pulse Ox 97.9 F 87 20 125/73 96 05/09/18 07:20 05/09/18 07:20 05/09/18 07:20 05/09/18 07:20 05/08/18 23:34 Intake and Output: 05/09/18 05/09/18 06:59 18:59 Intake Total 300 Balance 300 - Medications Medications: Current Medications Acetaminophen (Tylenol 325mg Tab) 650 mg PO Q6 PRN PRN Reason: Fever >100.4 F Last Admin: 05/08/18 21:44 Dose: 650 mg Aspirin (Aspirin Chewable) 81 mg PO DAILY [facility] Last Admin: 05/09/18 09:08 Dose: 81 mg Heparin Sodium (Porcine) (Heparin) 5,000 units SC Q8 [facility] Last Admin: 05/09/18 13:48 Dose: 5,000 units Loratadine (Claritin) 10 mg PO DAILY [facility] Last Admin: 05/09/18 09:08 Dose: 10 mg Phenobarbital (Phenobarbital Tab) 64.8 mg PO TID [facility] Last Admin: 05/09/18 13:47 Dose: 64.8 mg Rosuvastatin Calcium (Crestor) 5 mg PO HS [facility] Last Admin: 05/08/18 21:43 Dose: 5 mg - Labs Labs: 05/09/18 07:50 05/09/18 07:50 PT 12.6 SECONDS (9.7-12.2) H 05/04/18 21:10 INR 1.2 05/04/18 21:10 APTT 32 SECONDS (21-34) 05/04/18 21:10 - Additional Findings Additional findings: - Constitutional Appears: No Acute Distress - Head Exam Head Exam: ATRAUMATIC, NORMAL INSPECTION, NORMOCEPHALIC - Eye Exam Eye Exam: EOMI Pupil Exam: NORMAL ACCOMODATION, PERRL Additional comments: periorbital swelling and discoloration/hyperpigmentation. - ENT Exam ENT Exam: Mucous Membranes Moist, Normal Exam - Neck Exam Neck exam: Positive for: Normal Inspection - Respiratory Exam Respiratory Exam: NORMAL BREATHING PATTERN. absent: Accessory Muscle Use - Cardiovascular Exam Cardiovascular Exam: REGULAR RHYTHM, +S1, +S2 - GI/Abdominal Exam GI & Abdominal Exam: Normal Bowel Sounds, Soft. absent: Tenderness - Extremities Exam Extremities exam: Decreased ROM of RUE (decreased range of motion due to stroke history and left knee arthritis); absent: pedal edema - Back Exam Additional comments: severe kyphosis, excoriations noted on UE/LE bilaterally, and abdomen - Neurological Exam Neurological exam: Alert, CN II-XII Intact, Oriented x3 - Psychiatric Exam Psychiatric exam: Normal Affect, Normal Mood - Skin Skin Exam: Dry, Warm, excoriations noted on UE/LE bilaterally, and abdomen consistent with scabies rash, no signs of cellulitis Assessment and Plan - Assessment and Plan (Free Text) Plan: Apartment infestation with bugs, full body pruritis Likely scabies, will treat with Permethrin 5% cream * Ivermectin 12 mg was given morning 05/06/18 at 6:30 AM. This along with Permethrin Cream should be repeated in 7 days (05/13/18) should there be any suspicion that infection has not resolved. Benadryl given for itchy skin PT OT eval and treat Allergies: Loratidine 10mg PO daily History of seizures Phenobarbital 64.8 mg PO TID Phenobarbital level (05/05): 36.8, within normal range Prophylaxis: SCDs heparin 5000 sc q8h Aspirin 81mg PO daily Crestor 5mg PO HS DISPO: Patient requires home services, cleaning and fumigation of house. plastic worker will contact the home service the patient uses "[facility]" to determine whether appropriate care has been given and to request services to clean house. Patient will be evaluated by PT. Patient accepted to [facility] at [facility]. Patient is medically stable for discharge to [facility] tomorrow. <Simona Rodriguez V - Last Filed: 05/09/18 17:44> Objective - Vital Signs/Intake and Output Vital Signs (last 24 hours): Temp Pulse Resp BP Pulse Ox 98.1 F 78 20 145/78 97 05/09/18 16:00 05/09/18 16:00 05/09/18 16:00 05/09/18 16:00 05/09/18 16:00 Intake and Output: 05/09/18 05/09/18 06:59 18:59 Intake Total 300 Balance 300 - Medications Medications: Current Medications Acetaminophen (Tylenol 325mg Tab) 650 mg PO Q6 PRN PRN Reason: Fever >100.4 F Last Admin: 05/08/18 21:44 Dose: 650 mg Aspirin (Aspirin Chewable) 81 mg PO DAILY [facility] Last Admin: 05/09/18 09:08 Dose: 81 mg Heparin Sodium (Porcine) (Heparin) 5,000 units SC Q8 [facility] Last Admin: 05/09/18 13:48 Dose: 5,000 units Loratadine (Claritin) 10 mg PO DAILY [facility] Last Admin: 05/09/18 09:08 Dose: 10 mg Phenobarbital (Phenobarbital Tab) 64.8 mg PO TID [facility] Last Admin: 05/09/18 17:34 Dose: 64.8 mg Rosuvastatin Calcium (Crestor) 5 mg PO HS [facility] Last Admin: 05/08/18 21:43 Dose: 5 mg - Labs Labs: 05/09/18 07:50 05/09/18 07:50 PT 12.6 SECONDS (9.7-12.2) H 05/04/18 21:10 INR 1.2 05/04/18 21:10 APTT 32 SECONDS (21-34) 05/04/18 21:10 Assessment and Plan (1) Scabies Status: Acute (2) Scabies exposure Status: Acute (3) Asymptomatic bacteriuria Status: Acute (4) History of ventral hernia Status: Chronic (5) Arthritis Status: Chronic (6) History of CVA (cerebrovascular accident) Status: Chronic (7) History of seasonal allergies Status: Acute (8) History of seizures Status: Chronic (9) Prophylactic measure Status: Acute Attending/Attestation - Attestation I have personally seen and examined this patient.: Yes I have fully participated in the care of the patient.: Yes I have reviewed all pertinent clinical information, including history, physical exam and plan: Yes Notes (Text): Patient seen, examined and case discussed with medical administrative technician. Patient seen this morning. She is very comfortable and pleasant. patient reports mild itchiness. Patient given dose of Benadryl 25mg PO X1. Patient's rash is healing. Case discussed with case and social work, patient is accept to [facility] and required one more overnight per insurance for discharge tomorrow. Assessment and Plan (1) Scabies Assessment & Plan: Patient received 5% Cream 0 gm topical on 05/05/18 Patient received dose of Ivermectin 12mg PO once on 05/06/18. Rash is improving and fading Contact isolation Status: Acute (2) Scabies exposure Assessment & Plan: patient's housing site of exposure Status: Acute (3) Asymptomatic bacteriuria Assessment & Plan: Patient is not symptomatic of urinary tract infection Patient not on antibiotic given she is not symptomatic. Status: Acute (4) History of ventral hernia Status: Chronic (5) Arthritis Status: Chronic (6) History of CVA (cerebrovascular accident) Assessment & Plan: Aspirin 81mg PO daily Crestor 5mg POqHS Status: Chronic (7) History of seasonal allergies Assessment & Plan: Claritin 10mg PO daily Status: Acute (8) History of seizures Assessment & Plan: Phenobarbital 64.8 PO TID Status: Chronic (9) Prophylactic measure Assessment & Plan: Heparin 5000 units subq 8H PT/OT eval Subacute rehab eval Status: Acute
[2018-05-09] MEDS ORDERED: Bisacodyl 5mg EC Tab PO ONE (14:47)
[2018-05-10 06:20] LABS: BASO % 0.6 % (0.0-2.0); EOS % 16.4 % (0.0-4.0); HEMOGLOBIN 9.4 g/dL (11.0-16.0); LYMPH # 1.1 K/uL (1.0-4.3); LYMPH % 19.5 % (20.0-40.0); MEAN CELL VOLUME 95.4 fL (81.0-99.0); MEAN CORPUSCULAR HEMOGLOBIN 32.2 pg (27.0-31.0); MEAN CORPUSCULAR HGB CONC 33.7 g/dL (33.0-37.0); MEAN PLATELET VOLUME 7.7 fL (7.2-11.7); MONO # 0.7 K/uL (0.0-0.8); MONO % 12.6 % (0.0-10.0); NEUT # 2.9 K/uL (1.8-7.0); NEUT % 50.9 % (50.0-75.0); RBC 2.93 Mil/uL (3.80-5.20); WHITE BLOOD COUNT 5.8 K/uL (4.8-10.8)
[2018-05-10 06:39] LABS: ALBUMIN 3.2 g/dL (3.5-5.0); ALT/SGPT 64 U/L (9-52); AST/SGOT 90 U/L (14-36); BLOOD UREA NITROGEN 14 mg/dL (7-17); CALCIUM 8.5 mg/dl (8.6-10.4); GFR AFRICAN-AMERICAN > 60; GFR NON-AFRICAN AMERICAN > 60
[2018-05-10 16:33] VITALS: BP 162/90; PULSE 92; TEMP 97.6; O2SAT 99
--- NOTE | 2018-05-10 17:43 | CP.PCM.DIS ---
<Anaid Benedict - Last Filed: 05/10/18 17:38> Provider - Provider Date of Admission: 05/07/18 21:50 Attending physician: Simona Rodriguez DO Time Spent in preparation of Discharge (in minutes): 45 Hospital Course - Lab Results Lab Results: Micro Results 05/04/18 Unknown Urine Urine Culture - Final Escherichia Coli Most Recent Lab Values WBC 5.8 K/uL (4.8-10.8) 05/10/18 06:13 RBC 2.93 Mil/uL (3.80-5.20) L 05/10/18 06:13 Hgb 9.4 g/dL (11.0-16.0) L 05/10/18 06:13 Hct 28.0 % (34.0-47.0) L 05/10/18 06:13 MCV 95.4 fL (81.0-99.0) 05/10/18 06:13 MCH 32.2 pg (27.0-31.0) H 05/10/18 06:13 MCHC 33.7 g/dL (33.0-37.0) 05/10/18 06:13 RDW 14.0 % (11.5-14.5) 05/10/18 06:13 Plt Count 318 K/uL (130-400) 05/10/18 06:13 MPV 7.7 fL (7.2-11.7) 05/10/18 06:13 Neut % (Auto) 50.9 % (50.0-75.0) 05/10/18 06:13 Lymph % (Auto) 19.5 % (20.0-40.0) L 05/10/18 06:13 [place] % (Auto) 12.6 % (0.0-10.0) H 05/10/18 06:13 Eos % (Auto) 16.4 % (0.0-4.0) H 05/10/18 06:13 Baso % (Auto) 0.6 % (0.0-2.0) 05/10/18 06:13 Neut # (Auto) 2.9 K/uL (1.8-7.0) 05/10/18 06:13 Lymph # (Auto) 1.1 K/uL (1.0-4.3) 05/10/18 06:13 [place] # (Auto) 0.7 K/uL (0.0-0.8) 05/10/18 06:13 Eos # (Auto) 1.0 K/uL (0.0-0.7) H 05/10/18 06:13 Baso # (Auto) 0.0 K/uL (0.0-0.2) 05/10/18 06:13 Neutrophils % (Manual) 51 % (50-75) 05/06/18 07:30 Lymphocytes % (Manual) 25 % (20-40) 05/06/18 07:30 Monocytes % (Manual) 5 % (0-10) 05/06/18 07:30 Eosinophils % (Manual) 19 % (0-4) H 05/06/18 07:30 Platelet Estimate Normal (NORMAL) 05/06/18 07:30 RBC Morphology Normal 05/06/18 07:30 PT 12.6 SECONDS (9.7-12.2) H 05/04/18 21:10 INR 1.2 05/04/18 21:10 APTT 32 SECONDS (21-34) 05/04/18 21:10 Sodium 134 mmol/L (132-148) 05/10/18 06:13 Potassium 4.2 mmol/L (3.6-5.2) 05/10/18 06:13 Chloride 104 mmol/L (98-107) 05/10/18 06:13 Carbon Dioxide 23 mmol/L (22-30) 05/10/18 06:13 Anion Gap 12 (10-20) 05/10/18 06:13 BUN 14 mg/dL (7-17) 05/10/18 06:13 Creatinine 0.6 mg/dL (0.7-1.2) L 05/10/18 06:13 Est GFR ( Amer) > 60 05/10/18 06:13 Est GFR (Non-Af Amer) > 60 05/10/18 06:13 Random Glucose 87 mg/dL (65-105) 05/10/18 06:13 Calcium 8.5 mg/dl (8.6-10.4) L 05/10/18 06:13 Phosphorus 4.1 mg/dL (2.5-4.5) 05/08/18 07:24 Magnesium 2.1 mg/dL (1.6-2.3) 05/08/18 07:24 Total Bilirubin 0.4 mg/dL (0.2-1.3) 05/10/18 06:13 AST 90 U/L (14-36) H 05/10/18 06:13 ALT 64 U/L (9-52) H 05/10/18 06:13 Alkaline Phosphatase 115 U/L (38-126) 05/10/18 06:13 Total Protein 6.5 g/dL (6.3-8.3) 05/10/18 06:13 Albumin 3.2 g/dL (3.5-5.0) L 05/10/18 06:13 Globulin 3.2 gm/dL (2.2-3.9) 05/10/18 06:13 Albumin/Globulin Ratio 1.0 (1.0-2.1) 05/10/18 06:13 Urine Color Straw (YELLOW) 05/04/18 22:32 Urine Clarity Hazy (Clear) 05/04/18 22:32 Urine pH 6.0 (5.0-8.0) 05/04/18 22:32 Ur Specific Salome 1.002 (1.003-1.030) L 05/04/18 22:32 Urine Protein 2+ mg/dL (NEGATIVE) H 05/04/18 22:32 Urine Glucose (UA) Normal mg/dL (Normal) 05/04/18 22:32 Urine Ketones Negative mg/dL (NEGATIVE) 05/04/18 22:32 Urine Blood Negative (NEGATIVE) 05/04/18 22:32 Urine Nitrate Negative (NEGATIVE) 05/04/18 22:32 Urine Bilirubin Negative (NEGATIVE) 05/04/18 22:32 Urine Urobilinogen Normal mg/dL (0.2-1.0) 05/04/18 22:32 Ur Leukocyte Esterase Trace Chris/uL (Negative) H 05/04/18 22:32 Urine WBC (Auto) 2 /hpf (0-5) 05/04/18 22:32 Urine RBC (Auto) 3 /hpf (0-3) 05/04/18 22:32 Urine Bacteria Occ (<OCC) H 05/04/18 22:32 Phenobarbital 36.8 mg/L (15.0-40.0) 05/05/18 17:15 - Hospital Course Hospital Course: CC: itchiness, home-infested with bugs 82 F presents to the ER with friend complaining of generalized itchiness. Patient states her home is infested with bugs. Patient denies fever, chills, seizures, cough, abdominal pain. Patient admits to decreased appetite, occasional diarrhea. Patient states she lives at home alone. Patient's brother is in [place] and nieces are in [facility]. pmh: ventral hernia, cva, severe kyphosis, GI issue which leads to diarrhea, left knee arthritis (patient gets steroid injections), history of seizure. surgeries: cholecystectomy, ovarian cyst removal Social: never smoker, no etoh use, no illicit drug use. Allergies: NKDA Hospital course: Patient was admitted on 05/05/18 for scabies/bug infestation. Patient was placed on contact precautions. Permethrin cream was applied on in the morning and patient was given Ivermectin 12mg PO. PT/OT was consulted and recommended subacute rehab. Case management was consulted to plan for [facility] placement. Patient has a hsitory of allergies and seizures- home medication Claritin and Phenobarbital were continued. Serum phenobarbital was measured and within normal range. Patient's skin and excoriations significantly improved. Patient no longer complains of itchy or irritated skin. Patient is stable for discharge to [facility] at [facility]. This is a brief summary of the hospital course. Please see EMR for more details. Discharge Exam - Additional Findings Additional findings: - Constitutional Appears: No Acute Distress - Head Exam Head Exam: ATRAUMATIC, NORMAL INSPECTION, NORMOCEPHALIC - Eye Exam Eye Exam: EOMI Pupil Exam: NORMAL ACCOMODATION, PERRL Additional comments: periorbital swelling and discoloration/hyperpigmentation. - ENT Exam ENT Exam: Mucous Membranes Moist, Normal Exam - Neck Exam Neck exam: Positive for: Normal Inspection - Respiratory Exam Respiratory Exam: NORMAL BREATHING PATTERN. absent: Accessory Muscle Use - Cardiovascular Exam Cardiovascular Exam: REGULAR RHYTHM, +S1, +S2 - GI/Abdominal Exam GI & Abdominal Exam: Normal Bowel Sounds, Soft. absent: Tenderness - Extremities Exam Extremities exam: Decreased ROM of RUE (decreased range of motion due to stroke history and left knee arthritis); absent: pedal edema - Back Exam Additional comments: severe kyphosis, (improved) excoriations noted on UE/LE bilaterally, and abdomen - Neurological Exam Neurological exam: Alert, CN II-XII Intact, Oriented x3 - Psychiatric Exam Psychiatric exam: Normal Affect, Normal Mood - Skin Skin Exam: Dry, Warm, (improved) excoriations noted on UE/LE bilaterally, and abdomen consistent with scabies rash, no signs of cellulitis Discharge Plan - Follow Up Plan Condition: STABLE Disposition: REHAB FACILITY/REHAB UNIT Instructions: Scabies, Seizures, Adult (DC), Ivermectin (Topical), Scabies (DC) , Permethrin Additional Instructions: Patient is stable for discharge to [facility]. Patient should continue all medications. Ivermectin 12 mg was given morning 05/06/18 at 6:30 AM. This along with Permethrin Cream should be repeated in 7 days (on 05/13/18) should there be any suspicion that infection has not resolved. Patient should follow up with PMD within one week of discharge. If symptoms worsen or reoccur, patient should return to the nearest ER. Referrals: Smooth Trejo MD [Staff Provider] - Simona Rodriguez DO [Staff Provider] - <Simona Rodriguez V - Last Filed: 05/10/18 22:10> Provider - Provider Date of Admission: 05/07/18 21:50 Attending physician: Simona Rodriguez DO Diagnosis - Discharge Diagnosis (1) Scabies Status: Acute (2) Scabies exposure Status: Acute (3) Asymptomatic bacteriuria Status: Acute (4) History of ventral hernia Status: Chronic (5) Arthritis Status: Chronic (6) History of CVA (cerebrovascular accident) Status: Chronic (7) History of seasonal allergies Status: Acute (8) History of seizures Status: Chronic (9) Prophylactic measure Status: Acute Hospital Course - Lab Results Lab Results: Micro Results 05/04/18 Unknown Urine Urine Culture - Final Escherichia Coli Most Recent Lab Values WBC 5.8 K/uL (4.8-10.8) 05/10/18 06:13 RBC 2.93 Mil/uL (3.80-5.20) L 05/10/18 06:13 Hgb 9.4 g/dL (11.0-16.0) L 05/10/18 06:13 Hct 28.0 % (34.0-47.0) L 05/10/18 06:13 MCV 95.4 fL (81.0-99.0) 05/10/18 06:13 MCH 32.2 pg (27.0-31.0) H 05/10/18 06:13 MCHC 33.7 g/dL (33.0-37.0) 05/10/18 06:13 RDW 14.0 % (11.5-14.5) 05/10/18 06:13 Plt Count 318 K/uL (130-400) 05/10/18 06:13 MPV 7.7 fL (7.2-11.7) 05/10/18 06:13 Neut % (Auto) 50.9 % (50.0-75.0) 05/10/18 06:13 Lymph % (Auto) 19.5 % (20.0-40.0) L 05/10/18 06:13 [place] % (Auto) 12.6 % (0.0-10.0) H 05/10/18 06:13 Eos % (Auto) 16.4 % (0.0-4.0) H 05/10/18 06:13 Baso % (Auto) 0.6 % (0.0-2.0) 05/10/18 06:13 Neut # (Auto) 2.9 K/uL (1.8-7.0) 05/10/18 06:13 Lymph # (Auto) 1.1 K/uL (1.0-4.3) 05/10/18 06:13 [place] # (Auto) 0.7 K/uL (0.0-0.8) 05/10/18 06:13 Eos # (Auto) 1.0 K/uL (0.0-0.7) H 05/10/18 06:13 Baso # (Auto) 0.0 K/uL (0.0-0.2) 05/10/18 06:13 Neutrophils % (Manual) 51 % (50-75) 05/06/18 07:30 Lymphocytes % (Manual) 25 % (20-40) 05/06/18 07:30 Monocytes % (Manual) 5 % (0-10) 05/06/18 07:30 Eosinophils % (Manual) 19 % (0-4) H 05/06/18 07:30 Platelet Estimate Normal (NORMAL) 05/06/18 07:30 RBC Morphology Normal 05/06/18 07:30 PT 12.6 SECONDS (9.7-12.2) H 05/04/18 21:10 INR 1.2 05/04/18 21:10 APTT 32 SECONDS (21-34) 05/04/18 21:10 Sodium 134 mmol/L (132-148) 05/10/18 06:13 Potassium 4.2 mmol/L (3.6-5.2) 05/10/18 06:13 Chloride 104 mmol/L (98-107) 05/10/18 06:13 Carbon Dioxide 23 mmol/L (22-30) 05/10/18 06:13 Anion Gap 12 (10-20) 05/10/18 06:13 BUN 14 mg/dL (7-17) 05/10/18 06:13 Creatinine 0.6 mg/dL (0.7-1.2) L 05/10/18 06:13 Est GFR ( Amer) > 60 05/10/18 06:13 Est GFR (Non-Af Amer) > 60 05/10/18 06:13 Random Glucose 87 mg/dL (65-105) 05/10/18 06:13 Calcium 8.5 mg/dl (8.6-10.4) L 05/10/18 06:13 Phosphorus 4.1 mg/dL (2.5-4.5) 05/08/18 07:24 Magnesium 2.1 mg/dL (1.6-2.3) 05/08/18 07:24 Total Bilirubin 0.4 mg/dL (0.2-1.3) 05/10/18 06:13 AST 90 U/L (14-36) H 05/10/18 06:13 ALT 64 U/L (9-52) H 05/10/18 06:13 Alkaline Phosphatase 115 U/L (38-126) 05/10/18 06:13 Total Protein 6.5 g/dL (6.3-8.3) 05/10/18 06:13 Albumin 3.2 g/dL (3.5-5.0) L 05/10/18 06:13 Globulin 3.2 gm/dL (2.2-3.9) 05/10/18 06:13 Albumin/Globulin Ratio 1.0 (1.0-2.1) 05/10/18 06:13 Urine Color Straw (YELLOW) 05/04/18 22:32 Urine Clarity Hazy (Clear) 05/04/18 22:32 Urine pH 6.0 (5.0-8.0) 05/04/18 22:32 Ur Specific Salome 1.002 (1.003-1.030) L 05/04/18 22:32 Urine Protein 2+ mg/dL (NEGATIVE) H 05/04/18 22:32 Urine Glucose (UA) Normal mg/dL (Normal) 05/04/18 22:32 Urine Ketones Negative mg/dL (NEGATIVE) 05/04/18 22:32 Urine Blood Negative (NEGATIVE) 05/04/18 22:32 Urine Nitrate Negative (NEGATIVE) 05/04/18 22:32 Urine Bilirubin Negative (NEGATIVE) 05/04/18 22:32 Urine Urobilinogen Normal mg/dL (0.2-1.0) 05/04/18 22:32 Ur Leukocyte Esterase Trace Chris/uL (Negative) H 05/04/18 22:32 Urine WBC (Auto) 2 /hpf (0-5) 05/04/18 22:32 Urine RBC (Auto) 3 /hpf (0-3) 05/04/18 22:32 Urine Bacteria Occ (<OCC) H 05/04/18 22:32 Phenobarbital 36.8 mg/L (15.0-40.0) 05/05/18 17:15 Attending/Attestation - Attestation I have personally seen and examined this patient.: Yes I have fully participated in the care of the patient.: Yes I have reviewed all pertinent clinical information, including history, physical exam and plan: Yes Notes (Text): Patient seen, examined, and case discussed with day-time resident. Agree with summary as written by the resident. Patient is doing well. Rash is healing and has completed treatments last weekend. Patient accepted to [facility] for [facility] upon discharge. No new medications on discharge.
== END 2018-05-10 17:13 | DRG 607 ==
LOC: C.ER 20:01 → UNDOADMOB 05-05 00:11 → C.9E 05-05 00:11 → C.5S 05-05 01:00 → INTOOBSV 05-05 21:50 → OBSVTOIN 05-05 21:50 → C.5S 05-07 21:50 → C.9E 05-07 21:50
PROVIDERS: ADMIT Hospitalist; ATTEND Hospitalist
DX: B86 Scabies (principal); I69.351 Hemiplegia and hemiparesis following cerebral infarction affecting right dominant side; W57.XXXA Bitten or stung by nonvenomous insect and other nonvenomous arthropods, initial encounter; R82.71 Bacteriuria; Z20.7 Contact with and (suspected) exposure to pediculosis, acariasis and other infestations; N83.209 Unspecified ovarian cyst, unspecified side; M17.12 Unilateral primary osteoarthritis, left knee; M40.209 Unspecified kyphosis, site unspecified; L29.9 Pruritus, unspecified; K59.00 Constipation, unspecified; G40.909 Epilepsy, unspecified, not intractable, without status epilepticus; Z87.11 Personal history of peptic ulcer disease; Z90.49 Acquired absence of other specified parts of digestive tract; Z79.82 Long term (current) use of aspirin

== ENCOUNTER 2019-01-13 17:00 | Inpatient (IN) | payer MEDICARE, MEDICAID ==
--- NOTE | 2019-01-13 17:21 | C.PDOC ---
History Of Present Illness 83 y/o female presents to the ED for evaluation of fever and cough for 1 week. She also complains of chest congestion. Patient states Tmax was 102 at home yesterday. Otherwise she denies any nausea, vomiting, chest pain, or SOB. Time Seen by Provider: 01/13/19 17:14 Chief Complaint (Nursing): Fever History Per: Patient History/Exam Limitations: no limitations Onset/Duration Of Symptoms: Days (7) Current Symptoms Are (Timing): Still Present Past Medical History Reviewed: Historical Data, Nursing Documentation, Vital Signs Vital Signs: Last Vital Signs Temp 98.7 F 01/13/19 17:10 Pulse 93 H 01/13/19 17:10 Resp 16 01/13/19 17:10 BP 169/85 H 01/13/19 17:10 Pulse Ox 95 01/13/19 17:10 - Medical History PMH: CVA (3 years ago with right sided weakness), Seizures Surgical History: Cholecystectomy Other Surgeries: Right hip surgery Family History: States: Unknown Family Hx - Social History Hx Tobacco Use: No Hx Alcohol Use: No Hx Substance Use: No - Immunization History Hx Tetanus Toxoid Vaccination: No Hx Influenza Vaccination: Yes Hx Pneumococcal Vaccination: Yes Review Of Systems Constitutional: Positive for: Fever. Negative for: Sweats ENT: Negative for: Ear Pain, Throat Pain Cardiovascular: Positive for: Other (Chest congestion). Negative for: Chest Pain, Palpitations Respiratory: Positive for: Cough. Negative for: Shortness of Breath Gastrointestinal: Negative for: Nausea, Vomiting, Diarrhea Skin: Negative for: Rash Neurological: Negative for: Weakness, Headache, Dizziness Physical Exam - Physical Exam Appears: Non-toxic, In Acute Distress (mild distress) Skin: Warm, Dry, No Rash Head: Atraumatic, Normacephalic Eye(s): bilateral: Normal Inspection, PERRL, EOMI Oral Mucosa: Moist Neck: Normal ROM Chest: Symmetrical Cardiovascular: Rhythm Regular, No Murmur Respiratory: No Accessory Muscle Use, Other (some bronchial congestion noted, patient is speaking in full sentences, no retractions) Gastrointestinal/Abdominal: Soft, No Tenderness, No Distention Extremity: Bilateral: Atraumatic, Normal Color And Temperature, Normal ROM Pulses: Left Dorsalis Pedis: Normal, Right Dorsalis Pedis: Normal Neurological/Psych: Oriented x3, Normal Cranial Nerves Gait: Steady ED Course And Treatment - Laboratory Results Result Diagrams: 01/13/19 18:01 01/13/19 18:01 ECG: Interpreted By Me ECG Rhythm: Sinus Rhythm, 1st Degree HB ECG Interpretation: Normal Rate From EC O2 Sat by Pulse Oximetry: 95 (RA) Pulse Ox Interpretation: Normal - Radiology CXR: Interpreted by Me CXR Interpretation: Yes: Other (?INTERSTIT INFIL) Progress - Re-Evaluation Re-evaluation Note: 01/13/19 18:15 + FLU A 01/13/19 18:37 APPEARS COMFORTABLE NONTOXIC VSS. PT REFUSING ADMISSION TO [facility]. D/W DR Paul ALFARO AWARE OF ER FINDINGS WILL A DMIT - Data Reviewed Data Reviewed: Lab, Diagnostic imaging, EKG, Old records Medical Decision Making Medical Decision Making: Impression: Cough, Fever Initial Plan: - EKG - VBG - Blood work - Urinalysis - Flu swab - blood culture - urine culture - Chest x-ray - Reassess Disposition Counseled Patient/Family Regarding: Studies Performed, Diagnosis - Disposition Disposition: HOSPITALIZED Disposition Time: 18:38 Condition: STABLE Forms: [employer] ([place]) - POA Present On Arrival: None - Clinical Impression Clinical Impression: Influenza, Malaise, Hyponatremia - Scribe Statement The provider has reviewed the documentation as recorded by the Chato Cerna Provider Attestation: All medical record entries made by the Chato were at my direction and personally dictated by me. I have reviewed the chart and agree that the record accurately reflects my personal performance of the history, physical exam, medi eboni decision making, and the department course for this patient. I have also personally directed, reviewed, and agree with the discharge instructions and disposition.
[2019-01-13] MEDS ORDERED: Azithromycin 500 MG in Sodium Chloride 0.9% 250 ML IV STA ×2 (17:59→19:46)
[2019-01-13 18:05] LABS: BASO % 0.3 % (0.0-2.0); LYMPH # 0.7 K/uL (1.0-4.3); LYMPH % 9.7 % (20.0-40.0); MEAN CORPUSCULAR HEMOGLOBIN 33.5 pg (27.0-31.0); MEAN CORPUSCULAR HGB CONC 34.2 g/dL (33.0-37.0); MEAN PLATELET VOLUME 8.1 fL (7.2-11.7); MONO # 0.6 K/uL (0.0-0.8); MONO % 8.1 % (0.0-10.0); NEUT # 5.8 K/uL (1.8-7.0); NEUT % 81.9 % (50.0-75.0); RBC 4.21 Mil/uL (3.80-5.20); RED CELL DISTRIBUTION WIDTH 13.4 % (11.5-14.5); WHITE BLOOD COUNT 7.1 K/uL (4.8-10.8)
[2019-01-13 18:08] LABS: VENOUS BLOOD GAS PCO2 14 mmHg (40-60); VENOUS BLOOD GAS PO2 41 mm/Hg (30-55)
[2019-01-13 18:18] LABS: BLOOD UREA NITROGEN 9 mg/dL (7-17); CALCIUM 8.5 mg/dl (8.6-10.4); GFR NON-AFRICAN AMERICAN > 60
[2019-01-13 18:21] LABS: HEMOGLOBIN 14.1 g/dL (11.0-16.0); MEAN CELL VOLUME 97.9 fL (81.0-99.0); PLATELET COUNT 184 K/uL (130-400)
[2019-01-13 18:26] LABS: INR 1.3; PROTHROMBIN TIME 13.9 SECONDS (9.7-12.2)
[2019-01-13 18:34] LABS: ALB/GLOB RATIO 1.3 (1.0-2.1); ALBUMIN 4.3 g/dL (3.5-5.0); ALT/SGPT 22 U/L (9-52); AST/SGOT 39 U/L (14-36)
[2019-01-13 18:41] LABS: ANISOCYTOSIS SLIGHT; BANDS 4 % (0-2); LYMPHOCYTE 7 % (20-40); MONOCYTE 6 % (0-10); NEUTROPHIL 82 % (50-75); PLATELET ESTIMATE NORMAL (NORMAL); REACTIVE LYMPHOCYTES 1 % (0-0); TOTAL CELLS COUNTED 100
[2019-01-13 18:42] LABS: POLYCHROMIC SLIGHT
[2019-01-13 19:02] LABS: URINE AMORPHOUS SEDIMENT RARE /ul (<OCC); URINE BACTERIA FEW (<OCC); URINE BILIRUBIN NEGATIVE (NEGATIVE); URINE BLOOD 1+ (NEGATIVE); URINE CLARITY Hazy (Clear); URINE COLOR Yellow (YELLOW); URINE GLUCOSE (UA) NORMAL (Normal); URINE LEUKOCYTE ESTERASE 3+ Leu/uL (Negative); URINE PROTEIN 1+ mg/dL (NEGATIVE); URINE UROBILINOGEN NORMAL mg/dL (0.2-1.0)
[2019-01-13] MEDS ORDERED: Magnesium Hydroxide Susp 30 ml UD PO PRN (21:35)
[2019-01-13 21:49] LABS: VENOUS BLOOD GAS BASE EXCESS 0.9 mmol/L (0.0-2.0); VENOUS BLOOD GAS PCO2 32 mmHg (40-60); VENOUS BLOOD GAS PO2 36 mm/Hg (30-55); VENOUS BLOOD PH 7.48 (7.32-7.43)
[2019-01-13] MEDS: Sodium Chloride 0.9% 1,000 ML IV SCH (22:20)
[2019-01-13] MEDS: Oxycodone/Acetaminophen 5/325 mg Tab PO PRN (22:37)
[2019-01-14] MEDS: Oxycodone/Acetaminophen 5/325 mg Tab PO PRN ×3 (06:34→23:57)
[2019-01-14 07:55] LABS: HEMOGLOBIN 12.5 g/dL (11.0-16.0); MEAN CELL VOLUME 98.5 fL (81.0-99.0); MEAN CORPUSCULAR HEMOGLOBIN 34.4 pg (27.0-31.0); MEAN CORPUSCULAR HGB CONC 34.9 g/dL (33.0-37.0); MEAN PLATELET VOLUME 8.3 fL (7.2-11.7); RBC 3.62 Mil/uL (3.80-5.20); WHITE BLOOD COUNT 4.9 K/uL (4.8-10.8)
[2019-01-14 08:01] LABS: BLOOD UREA NITROGEN 9 mg/dL (7-17); CALCIUM 8.1 mg/dl (8.6-10.4); GFR NON-AFRICAN AMERICAN > 60
[2019-01-14] MEDS: Pantoprazole 40 mg EC Tab PO SCH (09:54)
[2019-01-14] MEDS: Enoxaparin 40 mg Syringe SC SCH (09:54)
[2019-01-14] MEDS: Multiple Vitamins Tab PO SCH (09:54)
[2019-01-14] MEDS: Sodium Chloride 0.9% 1,000 ML IV SCH ×2 (12:45→14:25)
--- NOTE | 2019-01-14 15:01 | RAD ---
Date of service: 01/13/2019 HISTORY: Sepsis Patient COMPARISON: 06/16/2013 FINDINGS: LUNGS: No active pulmonary disease. PLEURA: No significant pleural effusion identified, no pneumothorax apparent. CARDIOVASCULAR: No aortic atherosclerotic calcification present. Normal cardiac size. Hiatal hernia noted. OSSEOUS STRUCTURES: No significant abnormalities. VISUALIZED UPPER ABDOMEN: Normal. OTHER FINDINGS: None. IMPRESSION: Hiatal hernia. No acute infiltrate.
[2019-01-14] MEDS: guaiFENesin 600 mg ER Tab PO SCH (21:41)
--- NOTE | 2019-01-14 22:51 | CP.PCM.HP ---
Present on Admission - Present on Admission Any Indicators Present on Admission: No Past Patient History - Past Medical History & Family History Past Medical History?: Yes - Past Social History Smoking Status: Never Smoked - CARDIAC Hx Cardiac Disorders: No Hx Angina: No Hx Atrial Fibrillation: No Hx Cardia Arrhythmia: No Hx Circulatory Problems: No Hx Congestive Heart Failure: No Hx Heart Attack: No Hx Heart Murmur: No Hx Heart Transplant: No Hx Hypercholesterolemia: No Hx Hypertension: No Hx Hypotension: No Hx Internal Defibrillator: No Hx Mitral Valve Prolapse: No Hx Pacemaker: No Hx Peripheral Edema: No Hx Peripheral Vascular Disease: No - PULMONARY Hx Respiratory Disorders: No Hx Asthma: No Hx Bronchitis: No Hx Chronic Obstructive Pulmonary Disease (COPD): No Hx Emphysema: No Hx Lung Cancer: No Hx Pneumonia: No Hx Pulmonary Edema: No Hx Pulmonary Embolism: No Hx Respiratory Aspiration: No Hx Respiratory Tract Infection: No Hx Sleep Apnea: No Hx Tuberculosis: No - NEUROLOGICAL Hx Neurological Disorder: No Hx Alzheimer's Disease: No HX Cerebrovascular Accident: No Hx Dementia: No Hx Dizziness: No Hx Meningitis: No Hx Migraine: No Hx Multiple Sclerosis: No Hx Paralysis: No Hx Parkinson's Disease: No Hx Seizures: Yes Hx Syncope: No Hx Transient Ischemic Attacks (TIA): No Hx Vertigo: No - HEENT Hx HEENT Problems: No Hx Blind: No Hx Cataracts: No Hx Deafness: No Hx Difficulty Chewing: No Hx Epistaxis: No Hx Glaucoma: No Hx Macular Degeneration: No Hx Sinusitis: No - RENAL Hx Chronic Kidney Disease: No Hx Dialysis: No Hx Kidney Stones: No Hx Neurogenic Bladder: No Hx Pyelonephritis: No Hx Renal (Kidney) Cancer: No Hx Renal Failure: No - ENDOCRINE/METABOLIC Hx Endocrine Disorders: No Hx Adrenal Cancer: No Hx Diabetes Insipidus: No Hx Diabetes Mellitus Type 1: No Hx Diabetes Mellitus Type 2: No Hx Hyperthyroidism: No Hx Hypothyroidism: No Hx Systemic Lupus Erythematosus: No - HEMATOLOGICAL/ONCOLOGICAL Hx Blood Disorders: No Hx AIDS: No Hx Blood Transfusions: No Hx Blood Transfusion Reaction: No Hx Bruising: No Hx Cancer: No Hx Chemotherapy: No Hx Cirrhosis: No Hx Gum Bleeding: No Hx Hemophilia: No Hx Hepatitis A: No Hx Hepatitis B: No Hx Hepatitis C: No Hx Human Immunodeficiency Virus (HIV): No Hx Leukemia: No Hx Metastesis: No Hx Shingles: No Hx Sickle Cell Disease: No Hx Unexplained Bleeding: No Hx von Willebrand's Disease: No - INTEGUMENTARY Hx Dermatological Problems: No Hx Basil Cell: No Hx Mcnair: No Hx Cellulitis: No Hx Eczema: No Hx Melanoma: No Hx Psoriasis: No Hx Squamous Cell: No Other/Comment: Dermatitis - MUSCULOSKELETAL/RHEUMATOLOGICAL Hx Musculoskeletal Disorders: Yes Hx Arthritis: No Hx Back Pain: No Hx Degenerative Joint Disease: No Hx Falls: Yes Hx Fractures: No Hx Gout: No Hx Herniated Disk: No Hx Myasthenia Gravis: No Hx Osteoarthritis: No Hx Osteomyelitis: No Hx Osteoporosis: No Hx Rhabdomyolysis: No Hx Rheumatoid Arthritis: No Hx Spinal Stenosis: No Hx Unsteady Gait: No - GASTROINTESTINAL Hx Gastrointestinal Disorders: No Hx Bowel Surgery: No Hx Clostridium Difficile: No Hx Colitis: No Hx Colostomy: No Hx Constipation: No Hx Crohn's Disease: No Hx Diarrhea: No Hx Diverticulitis: No Hx Esophageal Varices: No Hx Fatty Liver Disease: No Hx Gall Bladder Disease: No Hx Gastritis: No Hx Gastroesophageal Reflux: No Hx Hemorrhoids: No Hx Ileostomy: No Hx Irritable Bowel: No Hx Liver Failure: No Hx Nausea: No Hx Pancreatitis: No HX Swallowing Problems: No Hx Ulcer: No Hx Vomiting: No - GENITOURINARY/GYNECOLOGICAL Hx Genitourinary Disorders: No Hx Bladder Cancer: No Hx Bladder Stone: No Hx Cervical Cancer: No Hx Hematuria: No Hx Incontinence: No Hx Ovarian Cancer: No Hx Postmenopausal Bleeding: No Hx Reproductive Disorders: No Hx Sexually Transmitted Disorders: No Hx Uterine Cancer: No Hx Urinary Tract Infection: No - PSYCHIATRIC Hx Psychophysiologic Disorder: No Hx Anxiety: No Hx Bipolar Disorder: No Hx Depression: No Hx Emotional Abuse: No Hx Hallucinations: No Hx Panic Symptoms: No Hx Paranoia: No Hx Post Traumatic Stress Disorder: No Hx Psychosis: No Hx Physical Abuse: No Hx Schizophrenia: No Hx Sexual Abuse: No Hx Substance Use: No - SURGICAL HISTORY Hx Surgeries: No Hx Abdominal Aortic Aneurysm Repair: No Hx Amputation: No Hx Angiogram: No Hx Angioplasty: No Hx Appendectomy: No Hx Arteriovenous Shunt: No Hx Arthroscopy: No Hx Bile Duct Stent: No Hx Breast Biopsy: No Hx Cataract Extraction: No Hx Cardiac Catheterization: No Hx Carotid Endarterectomy: No Hx Section: No Hx Cholecystectomy: Yes Hx Coronary Artery Bypass Graft: No Hx Coronary Stent: No Hx Dilation and Curettage: No Hx Eye Surgery: No Hx Femoral-Popliteal Bypass Graft: No Hx Gastric Bypass Surgery: No Hx Herniorrhaphy: No Hx Hysterectomy: No Hx Joint Replacement: No Hx Kidney Transplant: No Hx Liver Transplant: No Hx Mastectomy: No Hx Musculoskeletal Surgery: No Hx Open Heart Surgery: No Hx Open Reduction Internal Fixation: No Hx Orthopedic Surgery: No Hx Parathyroidectomy: No Hx Penile Implant: No Hx Pulmonary Surgery: No Hx Splenectomy: No Hx Thyroidectomy: No Hx Tonsillectomy: No Hx Tubal Ligation: No Hx Valve Replacement: No Hx Vascular Surgery: No Hx Vascular Access Device: No - ANESTHESIA Hx Anesthesia: Yes Hx Anesthesia Reactions: No Meds Allergies/Adverse Reactions: Allergies Allergy/AdvReac Type Severity Reaction Status Date / Time No Known Allergies Allergy Verified 01/13/19 17:11 Results - Vital Signs Recent Vital Signs: Last Vital Signs Temp 98 F 01/14/19 15:30 Pulse 70 01/14/19 15:30 Resp 20 01/14/19 15:30 BP 106/65 01/14/19 15:30 Pulse Ox 96 01/14/19 15:30 - Labs Result Diagrams: 01/14/19 07:39 01/14/19 07:39 Labs: Laboratory Results - last 24 hr 01/14/19 01/14/19 07:39 07:39 WBC 4.9 RBC 3.62 L Hgb 12.5 Hct 35.7 MCV 98.5 MCH 34.4 H MCHC 34.9 RDW 13.0 Plt Count 171 MPV 8.3 Sodium 124 L Potassium 3.2 L Chloride 92 L Carbon Dioxide 24 Anion Gap 12 BUN 9 Creatinine 0.4 L Est GFR ( Amer) > 60 Est GFR (Non-Af Amer) > 60 Random Glucose 85 Calcium 8.1 L Magnesium 1.8
[2019-01-14] MEDS: Potassium Chloride 20 mEq/15 ml LIQ UD PO SCH (23:54)
[2019-01-15] MEDS: Potassium Chloride 20 mEq/15 ml LIQ UD PO SCH (04:50)
[2019-01-15] MEDS: Sodium Chloride 0.9% 1,000 ML IV SCH ×3 (04:57→21:34)
[2019-01-15] MEDS: Oxycodone/Acetaminophen 5/325 mg Tab PO PRN ×2 (06:06→14:20)
[2019-01-15 07:50] LABS: BASO % 0.3 % (0.0-2.0); HEMOGLOBIN 11.6 g/dL (11.0-16.0); LYMPH # 0.7 K/uL (1.0-4.3); LYMPH % 19.1 % (20.0-40.0); MEAN CORPUSCULAR HEMOGLOBIN 34.6 pg (27.0-31.0); MEAN CORPUSCULAR HGB CONC 35.3 g/dL (33.0-37.0); MEAN PLATELET VOLUME 8.1 fL (7.2-11.7); MONO # 0.4 K/uL (0.0-0.8); MONO % 11.4 % (0.0-10.0); NEUT # 2.5 K/uL (1.8-7.0); NEUT % 68.2 % (50.0-75.0); RBC 3.36 Mil/uL (3.80-5.20); RED CELL DISTRIBUTION WIDTH 13.1 % (11.5-14.5); WHITE BLOOD COUNT 3.7 K/uL (4.8-10.8)
[2019-01-15 08:00] LABS: BLOOD UREA NITROGEN 5 mg/dL (7-17); CALCIUM 8.1 mg/dl (8.6-10.4); GFR NON-AFRICAN AMERICAN > 60
[2019-01-15] MEDS: Multiple Vitamins Tab PO SCH (09:44)
[2019-01-15] MEDS: Enoxaparin 40 mg Syringe SC SCH (09:44)
[2019-01-15] MEDS: Pantoprazole 40 mg EC Tab PO SCH (09:45)
[2019-01-15] MEDS: guaiFENesin 600 mg ER Tab PO SCH ×2 (09:45→20:54)
[2019-01-15] MEDS ORDERED: Pneumococcal 23-Valent Vaccine IM ONE (10:00)
[2019-01-15] MEDS ORDERED: Influenza Vaccine 60 mcg/0.5 mL SYR (4YR UP) IM ONE (10:00)
[2019-01-15 16:39] VITALS: RESP 20
[2019-01-15] MEDS: guaiFENesin 100 mg/5 ml Syrup UD PO PRN ×2 (17:49→21:47)
--- NOTE | 2019-01-15 19:01 | CP.PCM.CON ---
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 Patient also was noted to be febrile as stated by her to 102 at the assisted. On admission, patient was found to be positive for influenza A. Patient was placed on by mouth Tamiflu 75 mg twice a day. Patient also is getting IV Rocephin 1 g once a day daily. Patient's blood cultures reported positive for gram-positive cocci and urine cultures came back positive for gram-negative rods. Patient also was found to be hyponatremic with a sodium of 119 and presently 126 today. Infectious disease consultation requested by PMD for the above. Chest x-ray on admission was unremarkable with no active disease. Patient still continues to complain of dry cough and congestion and wants the phlegm to come out. He continues to complain of myalgias, but denies any nausea, vomiting, headache, chest pain or shortness of breath. Patient is up-to-date on her immunization for influenza and pneumococcal vaccine as reported in the chart. PATIENT DENIES ANY SICK CONTACTS. NO HISTORY OF TRAVEL. PMH: CVA (3 years ago with right sided weakness), Seizures Surgical History: Cholecystectomy Other Surgeries: Right hip surgery Family History: States: Unknown Family Hx - Social History Hx Tobacco Use: No Hx Alcohol Use: No Hx Substance Use: No - Immunization History Hx Tetanus Toxoid Vaccination: No Hx Influenza Vaccination: Yes Hx Pneumococcal Vaccination: Yes ALLERGY; NO KNOWN ALLERGIES. Review of Systems - Constitutional Constitutional: Chills, Fever - EENT Eyes: absent: Change in Vision Ears: absent: Disequilibrium Nose/Mouth/Throat: absent: Sore Throat - Cardiovascular Cardiovascular: absent: Chest Pain - Respiratory Respiratory: Cough (DRY COUGH), Chest Congestion. absent: Dyspnea, Hemoptysis - Genitourinary Genitourinary: absent: Dysuria, Hematuria, Freq UTI - Reproductive: Female Reproductive:Female: Post Menopausal - Neurological Neurological: absent: Headaches - Hematologic/Lymphatic Hematologic: As Per HPI. absent: Easy Bleeding, Easy Bruising, Lymphadenopathy Past Patient History - Past Medical History & Family History Past Medical History?: Yes - Past Social History Smoking Status: Never Smoked - CARDIAC Hx Cardiac Disorders: No Hx Angina: No Hx Atrial Fibrillation: No Hx Cardia Arrhythmia: No Hx Circulatory Problems: No Hx Congestive Heart Failure: No Hx Heart Attack: No Hx Heart Murmur: No Hx Heart Transplant: No Hx Hypercholesterolemia: No Hx Hypertension: No Hx Hypotension: No Hx Internal Defibrillator: No Hx Mitral Valve Prolapse: No Hx Pacemaker: No Hx Peripheral Edema: No Hx Peripheral Vascular Disease: No - PULMONARY Hx Respiratory Disorders: No Hx Asthma: No Hx Bronchitis: No Hx Chronic Obstructive Pulmonary Disease (COPD): No Hx Emphysema: No Hx Lung Cancer: No Hx Pneumonia: No Hx Pulmonary Edema: No Hx Pulmonary Embolism: No Hx Respiratory Aspiration: No Hx Respiratory Tract Infection: No Hx Sleep Apnea: No Hx Tuberculosis: No - NEUROLOGICAL HX Cerebrovascular Accident: Yes (R side weakness) - HEENT Hx HEENT Problems: No Hx Blind: No Hx Cataracts: No Hx Deafness: No Hx Difficulty Chewing: No Hx Epistaxis: No Hx Glaucoma: No Hx Macular Degeneration: No Hx Sinusitis: No - RENAL Hx Chronic Kidney Disease: No Hx Dialysis: No Hx Kidney Stones: No Hx Neurogenic Bladder: No Hx Pyelonephritis: No Hx Renal (Kidney) Cancer: No Hx Renal Failure: No - ENDOCRINE/METABOLIC Hx Endocrine Disorders: No Hx Adrenal Cancer: No Hx Diabetes Insipidus: No Hx Diabetes Mellitus Type 1: No Hx Diabetes Mellitus Type 2: No Hx Hyperthyroidism: No Hx Hypothyroidism: No Hx Systemic Lupus Erythematosus: No - HEMATOLOGICAL/ONCOLOGICAL Hx Blood Disorders: No Hx AIDS: No Hx Blood Transfusions: No Hx Blood Transfusion Reaction: No Hx Bruising: No Hx Cancer: No Hx Chemotherapy: No Hx Cirrhosis: No Hx Gum Bleeding: No Hx Hemophilia: No Hx Hepatitis A: No Hx Hepatitis B: No Hx Hepatitis C: No Hx Human Immunodeficiency Virus (HIV): No Hx Leukemia: No Hx Metastesis: No Hx Shingles: No Hx Sickle Cell Disease: No Hx Unexplained Bleeding: No Hx von Willebrand's Disease: No - INTEGUMENTARY Hx Dermatological Problems: No Hx Basil Cell: No Hx Mcnair: No Hx Cellulitis: No Hx Eczema: No Hx Melanoma: No Hx Psoriasis: No Hx Squamous Cell: No Other/Comment: Dermatitis - MUSCULOSKELETAL/RHEUMATOLOGICAL Hx Musculoskeletal Disorders: Yes Hx Arthritis: No Hx Back Pain: No Hx Degenerative Joint Disease: No Hx Falls: Yes Hx Fractures: No Hx Gout: No Hx Herniated Disk: No Hx Myasthenia Gravis: No Hx Osteoarthritis: No Hx Osteomyelitis: No Hx Osteoporosis: No Hx Rhabdomyolysis: No Hx Rheumatoid Arthritis: No Hx Spinal Stenosis: No Hx Unsteady Gait: No - GASTROINTESTINAL Hx Gastrointestinal Disorders: No Hx Bowel Surgery: No Hx Clostridium Difficile: No Hx Colitis: No Hx Colostomy: No Hx Constipation: No Hx Crohn's Disease: No Hx Diarrhea: No Hx Diverticulitis: No Hx Esophageal Varices: No Hx Fatty Liver Disease: No Hx Gall Bladder Disease: No Hx Gastritis: No Hx Gastroesophageal Reflux: No Hx Hemorrhoids: No Hx Ileostomy: No Hx Irritable Bowel: No Hx Liver Failure: No Hx Nausea: No Hx Pancreatitis: No HX Swallowing Problems: No Hx Ulcer: No Hx Vomiting: No - GENITOURINARY/GYNECOLOGICAL Hx Genitourinary Disorders: No Hx Bladder Cancer: No Hx Bladder Stone: No Hx Cervical Cancer: No Hx Hematuria: No Hx Incontinence: No Hx Ovarian Cancer: No Hx Postmenopausal Bleeding: No Hx Reproductive Disorders: No Hx Sexually Transmitted Disorders: No Hx Uterine Cancer: No Hx Urinary Tract Infection: No - PSYCHIATRIC Hx Psychophysiologic Disorder: No Hx Anxiety: No Hx Bipolar Disorder: No Hx Depression: No Hx Emotional Abuse: No Hx Hallucinations: No Hx Panic Symptoms: No Hx Paranoia: No Hx Post Traumatic Stress Disorder: No Hx Psychosis: No Hx Physical Abuse: No Hx Schizophrenia: No Hx Sexual Abuse: No Hx Substance Use: No - SURGICAL HISTORY Hx Surgeries: No Hx Abdominal Aortic Aneurysm Repair: No Hx Amputation: No Hx Angiogram: No Hx Angioplasty: No Hx Appendectomy: No Hx Arteriovenous Shunt: No Hx Arthroscopy: No Hx Bile Duct Stent: No Hx Breast Biopsy: No Hx Cataract Extraction: No Hx Cardiac Catheterization: No Hx Carotid Endarterectomy: No Hx Section: No Hx Cholecystectomy: Yes Hx Coronary Artery Bypass Graft: No Hx Coronary Stent: No Hx Dilation and Curettage: No Hx Eye Surgery: No Hx Femoral-Popliteal Bypass Graft: No Hx Gastric Bypass Surgery: No Hx Herniorrhaphy: No Hx Hysterectomy: No Hx Joint Replacement: No Hx Kidney Transplant: No Hx Liver Transplant: No Hx Mastectomy: No Hx Musculoskeletal Surgery: No Hx Open Heart Surgery: No Hx Open Reduction Internal Fixation: No Hx Orthopedic Surgery: No Hx Parathyroidectomy: No Hx Penile Implant: No Hx Pulmonary Surgery: No Hx Splenectomy: No Hx Thyroidectomy: No Hx Tonsillectomy: No Hx Tubal Ligation: No Hx Valve Replacement: No Hx Vascular Surgery: No Hx Vascular Access Device: No - ANESTHESIA Hx Anesthesia: Yes Hx Anesthesia Reactions: No Meds Allergies/Adverse Reactions: Allergies Allergy/AdvReac Type Severity Reaction Status Date / Time No Known Allergies Allergy Verified 01/13/19 17:11 - Medications Medications: Current Medications Acetaminophen (Tylenol 325mg Tab) 650 mg PO Q4 PRN PRN Reason: Fever >100.4 F Bethanechol Chloride (Urecholine) 25 mg PO TID [facility] Last Admin: 01/15/19 17:49 Dose: 25 mg Diphenhydramine HCl (Benadryl) 25 mg PO Q6 PRN PRN Reason: Allergy symptoms Docusate Sodium (Colace) 100 mg PO BID PRN PRN Reason: Constipation Enoxaparin Sodium (Lovenox) 40 mg SC DAILY [facility] Last Admin: 01/15/19 09:44 Dose: 40 mg Ferrous Sulfate (Feosol) 325 mg PO DAILY [facility] Last Admin: 01/15/19 09:44 Dose: 325 mg Guaifenesin (Robitussin) 100 mg PO Q4H PRN PRN Reason: Cough Last Admin: 01/15/19 17:49 Dose: 100 mg Sodium Chloride (Sodium Chloride 0.9%) 1,000 mls @ 70 mls/hr IV .[id number] [facility] Last Admin: 01/15/19 17:53 Dose: Not Given Ceftriaxone Sodium 1 gm/ (Sodium Chloride) 100 mls @ 100 mls/hr IVPB DAILY [facility]; Protocol Last Admin: 01/15/19 09:46 Dose: 100 mls/hr Magnesium Hydroxide (Milk Of Magnesia) 30 ml PO DAILY PRN PRN Reason: Constipation Multivitamins (Hexavitamin) 1 tab PO DAILY [facility] Last Admin: 01/15/19 09:44 Dose: 1 tab Oseltamivir Phosphate (Tamiflu Cap) 75 mg PO BID [facility]; Protocol Stop: 01/18/19 21:36 Last Admin: 01/15/19 17:49 Dose: 75 mg Oxycodone/Acetaminophen (Percocet 5/325 Mg Tab) 1 tab PO Q6 PRN PRN Reason: Pain, moderate (4-7) Stop: 01/16/19 21:36 Last Admin: 01/15/19 14:20 Dose: 1 tab Pantoprazole Sodium (Protonix Ec Tab) 40 mg PO DAILY [facility] Last Admin: 01/15/19 09:45 Dose: 40 mg Phenobarbital (Phenobarbital Tab) 64.8 mg PO Q8 [facility] Last Admin: 01/15/19 13:44 Dose: 64.8 mg Physical Exam - Constitutional Appears: No Acute Distress, Cachectic - Head Exam Head Exam: NORMAL INSPECTION - Eye Exam Eye Exam: EOMI, PERRL. absent: Scleral icterus - ENT Exam ENT Exam: Normal Oropharynx - Neck Exam Neck exam: Positive for: Normal Inspection - Respiratory Exam Respiratory Exam: Clear to Auscultation Bilateral, NORMAL BREATHING PATTERN - Cardiovascular Exam Cardiovascular Exam: REGULAR RHYTHM, +S1, +S2 - GI/Abdominal Exam GI & Abdominal Exam: Normal Bowel Sounds, Soft. absent: Tenderness - Extremities Exam Extremities exam: Positive for: pedal edema, pedal pulses present. Negative for: calf tenderness - Neurological Exam Neurological exam: Abnormal Gait (PATIENT IS BEDRIDDEN, UNABLE TO AMBULATE. ), CN II-XII Intact (RIGHT-SIDED WEAKNESS.) - Psychiatric Exam Psychiatric exam: Normal Mood - Skin Skin Exam: Normal Color, Warm Results - Vital Signs Recent Vital Signs: Last Vital Signs Temp 97.8 F 01/15/19 15:37 Pulse 79 01/15/19 15:37 Resp 20 01/15/19 15:37 BP 154/83 H 01/15/19 15:37 Pulse Ox 96 01/15/19 15:37 - Labs Result Diagrams: 01/15/19 07:39 01/15/19 07:39 Labs: Laboratory Results - last 24 hr 01/15/19 01/15/19 07:39 07:39 WBC 3.7 L RBC 3.36 L Hgb 11.6 Hct 32.9 L MCV 98.0 MCH 34.6 H MCHC 35.3 RDW 13.1 Plt Count 177 MPV 8.1 Neut % (Auto) 68.2 Lymph % (Auto) 19.1 L [place] % (Auto) 11.4 H Eos % (Auto) 1.0 Baso % (Auto) 0.3 Neut # (Auto) 2.5 Lymph # (Auto) 0.7 L [place] # (Auto) 0.4 Eos # (Auto) 0.0 Baso # (Auto) 0.0 Sodium 126 L Potassium 4.9 Chloride 98 Carbon Dioxide 20 L Anion Gap 12 BUN 5 L Creatinine 0.3 L Est GFR ( Amer) > 60 Est GFR (Non-Af Amer) > 60 Random Glucose 86 Calcium 8.1 L Magnesium 1.9 - Imaging and Cardiology Chest x-ray Status: Report reviewed by me (NO ACTIVE DISEASE.) Assessment & Plan (1) Gram-positive cocci bacteremia Assessment and Plan: blood cultures 01/13/19 1: 2 ses +ve GPC IN ANAEROBIC BOTTLE ONLY. ? CONTAMINANT/ VS REAL. AWAIT FINAL CULTURE SENSITIVITY AND ADJUST ANTIBIOTICS. Status: Acute (2) Influenza Assessment and Plan: PATIENT ON tAMIFLU 75 MG BY MOUTH TWICE A DAY X 5 DAYS. PATIENT COMPLAINS OF A DRY COUGH WITH NO EXPECTORATION. CHEST X-RAY ON ADMISSION WAS UNREMARKABLE. START BY MOUTH mUCINEX 600 MG BY MOUTH TWICE A DAY.01/15/19 CONTINUE DROPLET PRECAUTIONS ORDERED. Status: Acute (3) UTI (urinary tract infection) Assessment and Plan: urine cultures positive for Proteus mirabilis sensitive to Merrem. DC IV Rocephin. Start IV Merrem 500 mg every 8 hourly for now 01/15/19. Status: Acute (4) Hyponatremia Assessment and Plan: patient came in with sodium of 119. presently with a sodium of 126. IV fluids as per PMD. Status: Acute (5) History of seizures Status: Chronic (6) History of CVA (cerebrovascular accident) Assessment and Plan: patient has history of or CVA 3 years ago. Patient is bedridden and not ambulatory. Patient has right-sided weakness and gait instability. Status: Chronic
[2019-01-15] MEDS: Meropenem 500 MG in Sodium Chloride 0.9% 100 ML IVPB SCH (21:40)
[2019-01-16] MEDS: Oxycodone/Acetaminophen 5/325 mg Tab PO PRN (00:11)
--- NOTE | 2019-01-16 03:00 | CP.PCM.PN ---
Subjective - Date & Time of Evaluation Date of Evaluation: 01/15/19 Time of Evaluation: 08:20 - Subjective Subjective: dictated Objective - Vital Signs/Intake and Output Vital Signs (last 24 hours): Temp Pulse Resp BP Pulse Ox 99 F 83 20 150/71 99 01/15/19 23:25 01/15/19 23:25 01/15/19 23:25 01/15/19 23:25 01/15/19 23:25 Intake and Output: 01/15/19 01/16/19 18:59 06:59 Intake Total 910 480 Output Total 1100 1300 Balance -190 -820 - Medications Medications: Current Medications Acetaminophen (Tylenol 325mg Tab) 650 mg PO Q4 PRN PRN Reason: Fever >100.4 F Bethanechol Chloride (Urecholine) 25 mg PO TID [facility] Last Admin: 01/15/19 17:49 Dose: 25 mg Diphenhydramine HCl (Benadryl) 25 mg PO Q6 PRN PRN Reason: Allergy symptoms Docusate Sodium (Colace) 100 mg PO BID PRN PRN Reason: Constipation Enoxaparin Sodium (Lovenox) 40 mg SC DAILY [facility] Last Admin: 01/15/19 09:44 Dose: 40 mg Ferrous Sulfate (Feosol) 325 mg PO DAILY [facility] Last Admin: 01/15/19 09:44 Dose: 325 mg Guaifenesin (Robitussin) 100 mg PO Q4H PRN PRN Reason: Cough Last Admin: 01/15/19 21:47 Dose: 100 mg Guaifenesin (Mucinex La) 600 mg PO BID [facility] Last Admin: 01/15/19 20:54 Dose: Not Given Sodium Chloride (Sodium Chloride 0.9%) 1,000 mls @ 70 mls/hr IV .[id number] [facility] Last Admin: 01/15/19 21:34 Dose: 70 mls/hr Meropenem 500 mg/ Sodium (Chloride) 100 mls @ 100 mls/hr IVPB Q8H [facility]; Protocol Last Admin: 01/15/19 21:40 Dose: 100 mls/hr Magnesium Hydroxide (Milk Of Magnesia) 30 ml PO DAILY PRN PRN Reason: Constipation Multivitamins (Hexavitamin) 1 tab PO DAILY [facility] Last Admin: 01/15/19 09:44 Dose: 1 tab Oseltamivir Phosphate (Tamiflu Cap) 75 mg PO BID [facility]; Protocol Stop: 01/18/19 21:36 Last Admin: 01/15/19 17:49 Dose: 75 mg Oxycodone/Acetaminophen (Percocet 5/325 Mg Tab) 1 tab PO Q6 PRN PRN Reason: Pain, moderate (4-7) Stop: 01/16/19 21:36 Last Admin: 01/16/19 00:11 Dose: 1 tab Pantoprazole Sodium (Protonix Ec Tab) 40 mg PO DAILY [facility] Last Admin: 01/15/19 09:45 Dose: 40 mg Phenobarbital (Phenobarbital Tab) 64.8 mg PO Q8 [facility] Last Admin: 01/15/19 21:36 Dose: 64.8 mg - Labs Labs: 01/15/19 07:39 01/15/19 07:39 PT 13.9 SECONDS (9.7-12.2) H 01/13/19 18:01 INR 1.3 01/13/19 18:01 APTT 37 SECONDS (21-34) H 01/13/19 18:01
[2019-01-16] MEDS: Meropenem 500 MG in Sodium Chloride 0.9% 100 ML IVPB SCH ×3 (04:32→21:44)
[2019-01-16] MEDS: guaiFENesin 100 mg/5 ml Syrup UD PO PRN ×3 (04:35→21:44)
[2019-01-16 06:48] LABS: BASO % 0.3 % (0.0-2.0); EOS # 0.1 K/uL (0.0-0.7); EOS % 2.1 % (0.0-4.0); HEMOGLOBIN 12.3 g/dL (11.0-16.0); LYMPH # 0.7 K/uL (1.0-4.3); LYMPH % 18.3 % (20.0-40.0); MEAN CELL VOLUME 98.3 fL (81.0-99.0); MEAN CORPUSCULAR HGB CONC 34.6 g/dL (33.0-37.0); MEAN PLATELET VOLUME 7.9 fL (7.2-11.7); MONO # 0.4 K/uL (0.0-0.8); MONO % 12.3 % (0.0-10.0); NEUT # 2.4 K/uL (1.8-7.0); RBC 3.62 Mil/uL (3.80-5.20); RED CELL DISTRIBUTION WIDTH 13.1 % (11.5-14.5); WHITE BLOOD COUNT 3.6 K/uL (4.8-10.8)
[2019-01-16 06:59] LABS: BLOOD UREA NITROGEN 3 mg/dL (7-17); CALCIUM 8.3 mg/dl (8.6-10.4); GFR NON-AFRICAN AMERICAN > 60
--- NOTE | 2019-01-16 08:24 | PN ---
DATE: 01/16/2019 SUBJECTIVE: The patient is afebrile. She is weak, but she is feeling better. No nausea or vomiting. PHYSICAL EXAMINATION: VITAL SIGNS: Blood pressure 150/71, pulse 83, respiratory rate 20, temperature 99. LUNGS: Decreased air entry. Positive rhonchi. CARDIOVASCULAR SYSTEM: S1, S2 regular. ABDOMEN: Soft. ASSESSMENT: 1. Gram-negative septicemia due to urinary tract infection. 2. Flu. 3. Hypertension. PLAN: Medical management. IV fluids. Sodium replacement. Monitor the patient. Abraham Rodas MD
[2019-01-16] MEDS: Multiple Vitamins Tab PO SCH (10:15)
[2019-01-16] MEDS: guaiFENesin 600 mg ER Tab PO SCH ×2 (10:15→17:03)
[2019-01-16] MEDS: Pantoprazole 40 mg EC Tab PO SCH (10:15)
[2019-01-16] MEDS: Enoxaparin 40 mg Syringe SC SCH (12:14)
--- NOTE | 2019-01-16 13:35 | HP ---
CHIEF COMPLAINT: Weakness, cough, and fever for one week. HISTORY OF PRESENT ILLNESS: This is an 83-year-old female with history of seizure disorder and an old CVA three years ago with right sided weakness, recently came into the emergency room because of cough, congestion. The patient had fever and the patient is currently a resident of [facility]. The patient also has flu A positive and the patient is on Tamiflu. The patient is getting intravenous Rocephin. The patient's blood cultures are positive, urine cultures also are positive. The patient is weak, dehydrated, fatigued. She has nausea. She has generalized weakness. She has frequency of urination. She has dysuria. She has abdominal pain. She denies any history of joint pain, hip pain. She denies any dizziness. She has generalized weakness. There is no history of trauma, fall, loss of consciousness. No history of seizure-like activity. The patient denies any tingling, numbness, or paresthesias. PAST MEDICAL HISTORY: CVA, seizure disorder that started three years ago. She also has cholecystectomy, right hip surgery. SOCIAL HISTORY: Nonsmoker, non-ETOH user. Lives in a [facility]. MEDICATIONS: At [facility] are Benadryl, Urecholine, Tylenol, , Feosol, Lovenox, Colace, phenobarbital, Protonix, multivitamin, milk of magnesia, and Percocet. PHYSICAL EXAMINATION: GENERAL: An elderly female in no acute distress, weak. VITAL SIGNS: Blood pressure 126/76, pulse 77, respiratory rate 20, temperature 97.9. SKIN: Senile turgor. No bruises. No purpura. No petechiae. HEENT: Atraumatic and normocephalic. Negative pallor. Negative jaundice. Extraocular movements are intact. NECK: Supple. No JVD. No lymph node. No thyromegaly. CHEST WALL: Bilateral symmetrical expansion. LUNGS: Bilateral expiratory rhonchi. Decreased air entry. CARDIOVASCULAR SYSTEM: S1 and S2. Regular. ABDOMEN: Soft. Nontender. Bowel sounds are positive. RECTAL: No masses. No bleed. EXTREMITIES: No clubbing, cyanosis, or edema. CENTRAL NERVOUS SYSTEM: Alert and oriented x3. Cranial nerves II through XII are normal. ASSESSMENT: 1. Flu. 2. Urinary tract infection with septicemia, it is gram negative. 3. Hypertension. 4. Dehydration, hyponatremia, and hypokalemia. PLAN: Admit. Detailed orders are written. Seen and examined. Abraham Rodas MD
--- NOTE | 2019-01-16 14:43 | CP.PCM.PN ---
Subjective - Date & Time of Evaluation Date of Evaluation: 01/16/19 Time of Evaluation: 14:43 - Subjective Subjective: CHIEF COMPLAINTS TODAY : AFEBRILE, C/O CHEST CONGESTION GENERALIZED WEAKNESS ROS. HEENT : N. Resp : +VE cough, wheezing ,pleuritic CP ,or hemoptysis Cardio : No anginal CP, PND, orthopnea, palpitation GI : No abd.pain, n/v ,diarrhea or GI bleeding . 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 Musculoskel : No joint swelling , Derm : No rash Psych : Normal affect. Ext : No swelling ,calf pain PE. Pt. is alert awake in no distress. V.S As noted in the chart Head ,ear nose,throat and eyes : Normal. Neck : Supple with normal carotids. Lungs: Clear air entry. Heart : S1 & S2 normal with S4. No murmur. Abd : Soft non tender with normal bowel sounds. Neuro : Moves all ext. with no localized deficit. Ext : No edema with intact pulses.Non tender calves Derm : No rashes or decubitus ulcer. LABS/RADIOLOGY: WBC 3.6 CREAT 0.3/BUN 36 BLOOD CULTURE +VE MSSA URINE CULTURE +VE PROTEUS MIRABLIS S- MERREM Objective - Vital Signs/Intake and Output Vital Signs (last 24 hours): Temp Pulse Resp BP Pulse Ox 98.3 F 80 20 150/86 95 01/16/19 08:15 01/16/19 08:15 01/16/19 08:15 01/16/19 08:15 01/16/19 08:15 Intake and Output: 01/16/19 01/16/19 06:59 18:59 Intake Total 1310 1160 Output Total 2000 Balance -690 1160 - Medications Medications: Current Medications Acetaminophen (Tylenol 325mg Tab) 650 mg PO Q4 PRN PRN Reason: Fever >100.4 F Bethanechol Chloride (Urecholine) 25 mg PO TID [facility] Last Admin: 01/16/19 13:35 Dose: 25 mg Diphenhydramine HCl (Benadryl) 25 mg PO Q6 PRN PRN Reason: Allergy symptoms Docusate Sodium (Colace) 100 mg PO BID PRN PRN Reason: Constipation Last Admin: 01/16/19 10:15 Dose: 100 mg Enoxaparin Sodium (Lovenox) 40 mg SC DAILY [facility] Last Admin: 01/16/19 12:14 Dose: 40 mg Ferrous Sulfate (Feosol) 325 mg PO DAILY [facility] Last Admin: 01/16/19 10:15 Dose: 325 mg Guaifenesin (Robitussin) 100 mg PO Q4H PRN PRN Reason: Cough Last Admin: 01/16/19 04:35 Dose: 100 mg Guaifenesin (Mucinex La) 600 mg PO BID [facility] Last Admin: 01/16/19 10:15 Dose: 600 mg Sodium Chloride (Sodium Chloride 0.9%) 1,000 mls @ 70 mls/hr IV .[id number] [facility] Last Admin: 01/15/19 21:34 Dose: 70 mls/hr Meropenem 500 mg/ Sodium (Chloride) 100 mls @ 100 mls/hr IVPB Q8H [facility]; Protocol Last Admin: 01/16/19 12:13 Dose: 100 mls/hr Magnesium Hydroxide (Milk Of Magnesia) 30 ml PO DAILY PRN PRN Reason: Constipation Multivitamins (Hexavitamin) 1 tab PO DAILY [facility] Last Admin: 01/16/19 10:15 Dose: 1 tab Oseltamivir Phosphate (Tamiflu Cap) 75 mg PO BID [facility]; Protocol Stop: 01/18/19 21:36 Last Admin: 01/16/19 10:15 Dose: 75 mg Oxycodone/Acetaminophen (Percocet 5/325 Mg Tab) 1 tab PO Q6 PRN PRN Reason: Pain, moderate (4-7) Stop: 01/16/19 21:36 Last Admin: 01/16/19 00:11 Dose: 1 tab Pantoprazole Sodium (Protonix Ec Tab) 40 mg PO DAILY [facility] Last Admin: 01/16/19 10:15 Dose: 40 mg Phenobarbital (Phenobarbital Tab) 64.8 mg PO Q8 [facility] Last Admin: 01/16/19 13:35 Dose: 64.8 mg - Labs Labs: 01/16/19 06:40 01/16/19 06:40 PT 13.9 SECONDS (9.7-12.2) H 01/13/19 18:01 INR 1.3 01/13/19 18:01 APTT 37 SECONDS (21-34) H 01/13/19 18:01 Assessment and Plan (1) Gram-positive cocci bacteremia Assessment & Plan: BLOOD CULTURE +VE STAPH AUREUS (MSSA ) CONTINUE iv VANCOMYCIN 1 G iv PIGGYBACK ONCE A DAY DAILY 01/15/19. fOLLOW-UP VANCO TROUGH LEVELS PRIOR TO THE FOURTH DOSE AND KEEP BETWEEN 10 AND 20MG/ML. Status: Acute (2) Influenza Assessment & Plan: PATIENT ON tAMIFLU 75 MG BY MOUTH TWICE A DAY X 5 DAYS. PATIENT COMPLAINS OF A DRY COUGH WITH NO EXPECTORATION. CHEST X-RAY ON ADMISSION WAS UNREMARKABLE. ON BY MOUTH mUCINEX 600 MG BY MOUTH TWICE A DAY.01/15/19 CONTINUE DROPLET PRECAUTIONS ORDERED. Status: Acute (3) UTI (urinary tract infection) Assessment & Plan: urine cultures positive for Proteus mirabilis sensitive to Merrem. CONTINUE IV Merrem 500 mg every 8 hourly for now 01/15/19. AMIKACIN 850MG IVPB X1DOSE OVER 30MIN TODAY 01/17/19 Status: Acute (4) Hyponatremia Status: Acute (5) History of seizures Status: Chronic (6) History of CVA (cerebrovascular accident) Status: Chronic
--- NOTE | 2019-01-16 21:00 | CP.PCM.PN ---
Subjective - Date & Time of Evaluation Date of Evaluation: 01/16/19 Time of Evaluation: 09:00 - Subjective Subjective: dictated Objective - Vital Signs/Intake and Output Vital Signs (last 24 hours): Temp Pulse Resp BP Pulse Ox 98.3 F 81 20 154/77 H 96 01/16/19 15:41 01/16/19 15:41 01/16/19 15:41 01/16/19 15:41 01/16/19 15:41 Intake and Output: 01/16/19 01/17/19 18:59 06:59 Intake Total 1160 Output Total 500 Balance 660 - Medications Medications: Current Medications Acetaminophen (Tylenol 325mg Tab) 650 mg PO Q4 PRN PRN Reason: Fever >100.4 F Bethanechol Chloride (Urecholine) 25 mg PO TID [facility] Last Admin: 01/16/19 17:04 Dose: 25 mg Diphenhydramine HCl (Benadryl) 25 mg PO Q6 PRN PRN Reason: Allergy symptoms Docusate Sodium (Colace) 100 mg PO BID PRN PRN Reason: Constipation Last Admin: 01/16/19 10:15 Dose: 100 mg Enoxaparin Sodium (Lovenox) 40 mg SC DAILY [facility] Last Admin: 01/16/19 12:14 Dose: 40 mg Ferrous Sulfate (Feosol) 325 mg PO DAILY [facility] Last Admin: 01/16/19 10:15 Dose: 325 mg Guaifenesin (Robitussin) 100 mg PO Q4H PRN PRN Reason: Cough Last Admin: 01/16/19 17:03 Dose: 100 mg Guaifenesin (Mucinex La) 600 mg PO BID [facility] Last Admin: 01/16/19 17:03 Dose: 600 mg Sodium Chloride (Sodium Chloride 0.9%) 1,000 mls @ 70 mls/hr IV .[id number] [facility] Last Admin: 01/15/19 21:34 Dose: 70 mls/hr Meropenem 500 mg/ Sodium (Chloride) 100 mls @ 100 mls/hr IVPB Q8H [facility]; Protocol Last Admin: 01/16/19 12:13 Dose: 100 mls/hr Vancomycin HCl 1 gm/ Sodium (Chloride) 250 mls @ 166.7 mls/hr IVPB Q24H [facility]; Protocol Last Admin: 01/16/19 16:45 Dose: 166.7 mls/hr Magnesium Hydroxide (Milk Of Magnesia) 30 ml PO DAILY PRN PRN Reason: Constipation Multivitamins (Hexavitamin) 1 tab PO DAILY [facility] Last Admin: 01/16/19 10:15 Dose: 1 tab Oseltamivir Phosphate (Tamiflu Cap) 75 mg PO BID [facility]; Protocol Stop: 01/18/19 21:36 Last Admin: 01/16/19 17:03 Dose: 75 mg Oxycodone/Acetaminophen (Percocet 5/325 Mg Tab) 1 tab PO Q6 PRN PRN Reason: Pain, moderate (4-7) Stop: 01/16/19 21:36 Last Admin: 01/16/19 00:11 Dose: 1 tab Pantoprazole Sodium (Protonix Ec Tab) 40 mg PO DAILY [facility] Last Admin: 01/16/19 10:15 Dose: 40 mg Phenobarbital (Phenobarbital Tab) 64.8 mg PO Q8 [facility] Last Admin: 01/16/19 13:35 Dose: 64.8 mg - Labs Labs: 01/16/19 06:40 01/16/19 06:40 PT 13.9 SECONDS (9.7-12.2) H 01/13/19 18:01 INR 1.3 01/13/19 18:01 APTT 37 SECONDS (21-34) H 01/13/19 18:01
[2019-01-16] MEDS: Sodium Chloride 0.9% 1,000 ML IV SCH (21:44)
[2019-01-17] MEDS: guaiFENesin 100 mg/5 ml Syrup UD PO PRN ×2 (01:41→10:32)
--- NOTE | 2019-01-17 02:02 | PN ---
DATE: 01/16/2019 SUBJECTIVE: The patient is afebrile. Positive cough. No shortness of breath. She has nausea. She has congestion in the lower lobe. She denies any fever. She is on antibiotics. Blood cultures and urine cultures are positive. PHYSICAL EXAMINATION: VITAL SIGNS: Blood pressure 150/86, pulse 80, respiratory rate 20, and temperature 98.3. LUNGS: Bilateral rhonchi and rales. CARDIOVASCULAR SYSTEM: S1, S2. Regular. ABDOMEN: Soft. Nontender. Bowel sounds are positive. ASSESSMENT: 1. Urinary tract infection. 2. Flu. 3. Dehydration. 4. Hypertension. PLAN: Medical management. ID consult. Monitor the patient. Abraham Rodas MD
[2019-01-17] MEDS: Meropenem 500 MG in Sodium Chloride 0.9% 100 ML IVPB SCH ×3 (04:21→21:00)
[2019-01-17] MEDS: Pantoprazole 40 mg EC Tab PO SCH (09:29)
[2019-01-17] MEDS: Multiple Vitamins Tab PO SCH (09:29)
[2019-01-17] MEDS: Enoxaparin 40 mg Syringe SC SCH (09:29)
[2019-01-17] MEDS: guaiFENesin 600 mg ER Tab PO SCH ×2 (09:29→17:52)
[2019-01-17 11:52] LABS: BASO % 0.4 % (0.0-2.0); EOS # 0.1 K/uL (0.0-0.7); EOS % 2.5 % (0.0-4.0); HEMOGLOBIN 12.1 g/dL (11.0-16.0); LYMPH # 0.8 K/uL (1.0-4.3); LYMPH % 22.6 % (20.0-40.0); MEAN CELL VOLUME 96.6 fL (81.0-99.0); MEAN CORPUSCULAR HEMOGLOBIN 33.1 pg (27.0-31.0); MEAN CORPUSCULAR HGB CONC 34.3 g/dL (33.0-37.0); MONO # 0.5 K/uL (0.0-0.8); MONO % 14.1 % (0.0-10.0); NEUT # 2.1 K/uL (1.8-7.0); NEUT % 60.4 % (50.0-75.0); NRBC % 0.3 % (0.0-2.0); RBC 3.64 Mil/uL (3.80-5.20); RED CELL DISTRIBUTION WIDTH 12.9 % (11.5-14.5); WHITE BLOOD COUNT 3.4 K/uL (4.8-10.8)
[2019-01-17] MEDS: Sodium Chloride 0.9% 1,000 ML IV SCH (12:06)
[2019-01-17 12:17] LABS: BLOOD UREA NITROGEN 6 mg/dL (7-17); CALCIUM 8.3 mg/dl (8.6-10.4); GFR NON-AFRICAN AMERICAN > 60
--- NOTE | 2019-01-17 12:27 | CARD ---
APPROVED REPORT Date of service: 01/13/2019 EKG Measurement Heart [id number] CT 244P1 [id number] <Conclusion> Sinus rhythm with 1st degree AV block Inferior infarct, age undetermined Abnormal ECG
[2019-01-17] MEDS: Benzocaine/Menthol (Cepacol) Lozenge MT SCH ×3 (12:51→21:00)
--- NOTE | 2019-01-17 21:34 | CP.PCM.PN ---
Subjective - Date & Time of Evaluation Date of Evaluation: 01/17/19 Time of Evaluation: 21:33 - Subjective Subjective: CHIEF COMPLAINTS TODAY : AFEBRILE, NO NEW COMPLAINTS ON IV ABX /PO TAMIFLUE ROS. HEENT : N. Resp : +VE cough, wheezing ,pleuritic CP ,or hemoptysis Cardio : No anginal CP, PND, orthopnea, palpitation GI : No abd.pain, n/v ,diarrhea or GI bleeding . 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 Musculoskel : No joint swelling , Derm : No rash Psych : Normal affect. Ext : No swelling ,calf pain PE. Pt. is alert awake in no distress. V.S As noted in the chart Head ,ear nose,throat and eyes : Normal. Neck : Supple with normal carotids. Lungs: Clear air entry. Heart : S1 & S2 normal with S4. No murmur. Abd : Soft non tender with normal bowel sounds. Neuro : Moves all ext. with no localized deficit. Ext : No edema with intact pulses.Non tender calves Derm : No rashes or decubitus ulcer. LABS/RADIOLOGY: WBC 3.4 CREAT 0.3/BUN 36 BLOOD CULTURE +VE MSSA URINE CULTURE +VE PROTEUS MIRABLIS S- MERREM REPEAT ua 2+ URINARY LEUKOCYTES, wbcS 8, rbcS 3 nEGATIVE PROTEINS. Objective - Vital Signs/Intake and Output Vital Signs (last 24 hours): Temp Pulse Resp BP Pulse Ox 97.6 F 76 20 148/83 96 01/17/19 16:00 01/17/19 16:00 01/17/19 16:00 01/17/19 16:00 01/17/19 16:00 Intake and Output: 01/17/19 01/18/19 18:59 06:59 Intake Total 960 Output Total 875 Balance 85 - Medications Medications: Current Medications Acetaminophen (Tylenol 325mg Tab) 650 mg PO Q4 PRN PRN Reason: Fever >100.4 F Last Admin: 01/17/19 16:22 Dose: 650 mg Benzocaine/Menthol (Cepacol Sore Throat) 1 tanya MT Q4 [facility] Last Admin: 01/17/19 16:22 Dose: 1 tanya Bethanechol Chloride (Urecholine) 25 mg PO TID [facility] Last Admin: 01/17/19 17:51 Dose: 25 mg Diphenhydramine HCl (Benadryl) 25 mg PO Q6 PRN PRN Reason: Allergy symptoms Docusate Sodium (Colace) 100 mg PO BID PRN PRN Reason: Constipation Last Admin: 01/16/19 10:15 Dose: 100 mg Enoxaparin Sodium (Lovenox) 40 mg SC DAILY [facility] Last Admin: 01/17/19 09:29 Dose: 40 mg Ferrous Sulfate (Feosol) 325 mg PO DAILY [facility] Last Admin: 01/17/19 09:30 Dose: 325 mg Guaifenesin (Robitussin) 100 mg PO Q4H PRN PRN Reason: Cough Last Admin: 01/17/19 10:32 Dose: 100 mg Guaifenesin (Mucinex La) 600 mg PO BID [facility] Last Admin: 01/17/19 17:52 Dose: 600 mg Meropenem 500 mg/ Sodium (Chloride) 100 mls @ 100 mls/hr IVPB Q8H [facility]; Protocol Last Admin: 01/17/19 12:04 Dose: 100 mls/hr Vancomycin HCl 1 gm/ Sodium (Chloride) 250 mls @ 166.7 mls/hr IVPB Q24H [facility]; Protocol Last Admin: 01/17/19 16:22 Dose: 166.7 mls/hr Magnesium Hydroxide (Milk Of Magnesia) 30 ml PO DAILY PRN PRN Reason: Constipation Multivitamins (Hexavitamin) 1 tab PO DAILY [facility] Last Admin: 01/17/19 09:29 Dose: 1 tab Pantoprazole Sodium (Protonix Ec Tab) 40 mg PO DAILY [facility] Last Admin: 01/17/19 09:29 Dose: 40 mg Phenobarbital (Phenobarbital Tab) 64.8 mg PO Q8 [facility] Last Admin: 01/17/19 13:09 Dose: 64.8 mg - Labs Labs: 01/17/19 11:24 01/17/19 11:24 PT 13.9 SECONDS (9.7-12.2) H 01/13/19 18:01 INR 1.3 01/13/19 18:01 APTT 37 SECONDS (21-34) H 01/13/19 18:01 Assessment and Plan (1) Gram-positive cocci bacteremia Assessment & Plan: BLOOD CULTURE +VE STAPH AUREUS (MSSA ) CONTINUE iv VANCOMYCIN 1 G iv PIGGYBACK ONCE A DAY DAILY 01/15/19. fOLLOW-UP VANCO TROUGH LEVELS PRIOR TO THE FOURTH DOSE AND KEEP BETWEEN 10 AND 20MG/ML. Status: Acute (2) Influenza Assessment & Plan: PATIENT ON tAMIFLU 75 MG BY MOUTH TWICE A DAY X 5 DAYS. PATIENT COMPLAINS OF A DRY COUGH WITH NO EXPECTORATION. CHEST X-RAY ON ADMISSION WAS UNREMARKABLE. ON BY MOUTH mUCINEX 600 MG BY MOUTH TWICE A DAY.01/15/19 Status: Acute (3) UTI (urinary tract infection) Assessment & Plan: urine cultures positive for Proteus mirabilis sensitive to Merrem. CONTINUE IV Merrem 500 mg every 8 hourly for now 01/15/19. AMIKACIN 850MG IVPB X1DOSE OVER 30MIN TODAY 01/17/19 F/U URINE CULTURES- PENDING Status: Acute (4) Hyponatremia Status: Acute (5) History of seizures Status: Chronic (6) History of CVA (cerebrovascular accident) Status: Chronic
[2019-01-17] MEDS ORDERED: MethylPREDNISolone 40 mg Vial IVP STA (22:40)
[2019-01-17 22:59] LABS: SQUAMOUS EPITHIAL < 1 /hpf (0-5); URINE BACTERIA RARE (<OCC); URINE BILIRUBIN NEGATIVE (NEGATIVE); URINE BLOOD NEGATIVE (NEGATIVE); URINE CLARITY Clear (Clear); URINE COLOR Straw (YELLOW); URINE GLUCOSE (UA) NORMAL (Normal); URINE LEUKOCYTE ESTERASE 2+ Leu/uL (Negative); URINE PROTEIN NEGATIVE (NEGATIVE); URINE UROBILINOGEN NORMAL mg/dL (0.2-1.0)
[2019-01-17 23:22] LABS: CREATININE, RANDOM URINE 4.6 mg/dL
[2019-01-18] MEDS: Benzocaine/Menthol (Cepacol) Lozenge MT SCH ×6 (00:44→20:37)
--- NOTE | 2019-01-18 02:42 | PN ---
DATE: 01/17/2019 SUBJECTIVE: The patient is still coughing, congested, and she has sore throat. She is afebrile. She is on Tamiflu and she is on Merrem. Seen by ID. No fever. PHYSICAL EXAMINATION: VITAL SIGNS: Blood pressure 148/83, pulse 76, respiratory rate 20, temperature 99.6. LUNGS: Bilateral scattered rales and rhonchi. CARDIOVASCULAR SYSTEM: S1 and S2, regular. ABDOMEN: Soft. ASSESSMENT: 1. Flu. 2. Dehydration with low sodium. 3. Urinary tract infection, likely to be septicemia. 4. Hypertension. PLAN: Nephrology consult. IV fluids. Echocardiogram. Antibiotics per ID. We will monitor the patient. Abraham Rodas MD
[2019-01-18] MEDS: Meropenem 500 MG in Sodium Chloride 0.9% 100 ML IVPB SCH ×3 (03:19→20:58)
[2019-01-18 10:13] LABS: BASO % 0.6 % (0.0-2.0); EOS % 1.2 % (0.0-4.0); HEMOGLOBIN 12.1 g/dL (11.0-16.0); LYMPH % 30.8 % (20.0-40.0); MEAN CORPUSCULAR HEMOGLOBIN 33.5 pg (27.0-31.0); MEAN CORPUSCULAR HGB CONC 34.2 g/dL (33.0-37.0); MEAN PLATELET VOLUME 8.6 fL (7.2-11.7); MONO # 0.5 K/uL (0.0-0.8); MONO % 14.9 % (0.0-10.0); NEUT # 1.7 K/uL (1.8-7.0); NEUT % 52.5 % (50.0-75.0); NRBC % 0.2 % (0.0-2.0); RBC 3.6 Mil/uL (3.80-5.20); RED CELL DISTRIBUTION WIDTH 13.1 % (11.5-14.5); WHITE BLOOD COUNT 3.2 K/uL (4.8-10.8)
[2019-01-18 10:24] LABS: BLOOD UREA NITROGEN 5 mg/dL (7-17); CALCIUM 8.4 mg/dl (8.6-10.4); GFR NON-AFRICAN AMERICAN > 60
[2019-01-18] MEDS: Multiple Vitamins Tab PO SCH (10:31)
[2019-01-18] MEDS: guaiFENesin 600 mg ER Tab PO SCH ×2 (10:31→17:35)
[2019-01-18] MEDS: Enoxaparin 40 mg Syringe SC SCH (10:32)
[2019-01-18] MEDS: Pantoprazole 40 mg EC Tab PO SCH (10:32)
--- NOTE | 2019-01-18 15:01 | CP.PCM.PN ---
Subjective - Date & Time of Evaluation Date of Evaluation: 01/18/19 Time of Evaluation: 15:01 - Subjective Subjective: CHIEF COMPLAINTS TODAY : AFEBRILE, NO NEW COMPLAINTS ON IV ABX /PO TAMIFLUE ROS. HEENT : N. Resp : +VE cough, wheezing ,pleuritic CP ,or hemoptysis Cardio : No anginal CP, PND, orthopnea, palpitation GI : No abd.pain, n/v ,diarrhea or GI bleeding . 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 Musculoskel : No joint swelling , Derm : No rash Psych : Normal affect. Ext : No swelling ,calf pain PE. Pt. is alert awake in no distress. V.S As noted in the chart Head ,ear nose,throat and eyes : Normal. Neck : Supple with normal carotids. Lungs: Clear air entry. Heart : S1 & S2 normal with S4. No murmur. Abd : Soft non tender with normal bowel sounds. Neuro : Moves all ext. with no localized deficit. Ext : No edema with intact pulses.Non tender calves Derm : No rashes or decubitus ulcer. LABS/RADIOLOGY: REPEAT BLOOD CULTURES 01/17/19 -VE X 24 HOURS. WBC 3.2 H/H STABLE, PLATELETS 239 CREAT 0.2/ bun 5 BLOOD CULTURE +VE MSSA URINE CULTURE +VE PROTEUS MIRABLIS S- MERREM REPEAT ua 2+ URINARY LEUKOCYTES, wbcS 8, rbcS 3 nEGATIVE PROTEINS. Objective - Vital Signs/Intake and Output Vital Signs (last 24 hours): Temp Pulse Resp BP Pulse Ox 97.9 F 71 20 152/72 H 97 01/18/19 07:00 01/18/19 07:00 01/18/19 07:00 01/18/19 07:00 01/18/19 07:00 Intake and Output: 01/18/19 01/18/19 06:59 18:59 Intake Total 1390 Output Total 800 Balance 590 - Medications Medications: Current Medications Acetaminophen (Tylenol 325mg Tab) 650 mg PO Q4 PRN PRN Reason: Fever >100.4 F Last Admin: 01/17/19 16:22 Dose: 650 mg Benzocaine/Menthol (Cepacol Sore Throat) 1 tanya MT Q4 [facility] Last Admin: 01/18/19 12:14 Dose: Not Given Bethanechol Chloride (Urecholine) 25 mg PO TID [facility] Last Admin: 01/18/19 13:23 Dose: 25 mg Diphenhydramine HCl (Benadryl) 25 mg PO Q6 PRN PRN Reason: Allergy symptoms Docusate Sodium (Colace) 100 mg PO BID PRN PRN Reason: Constipation Last Admin: 01/16/19 10:15 Dose: 100 mg Enoxaparin Sodium (Lovenox) 40 mg SC DAILY [facility] Last Admin: 01/18/19 10:32 Dose: 40 mg Ferrous Sulfate (Feosol) 325 mg PO DAILY [facility] Last Admin: 01/18/19 10:32 Dose: 325 mg Guaifenesin (Robitussin) 100 mg PO Q4H PRN PRN Reason: Cough Last Admin: 01/17/19 10:32 Dose: 100 mg Guaifenesin (Mucinex La) 600 mg PO BID [facility] Last Admin: 01/18/19 10:31 Dose: 600 mg Meropenem 500 mg/ Sodium (Chloride) 100 mls @ 100 mls/hr IVPB Q8H [facility]; Protocol Last Admin: 01/18/19 11:20 Dose: 100 mls/hr Vancomycin HCl 1 gm/ Sodium (Chloride) 250 mls @ 166.7 mls/hr IVPB Q24H [facility]; Protocol Last Admin: 01/17/19 16:22 Dose: 166.7 mls/hr Magnesium Hydroxide (Milk Of Magnesia) 30 ml PO DAILY PRN PRN Reason: Constipation Methylprednisolone (Solu-Medrol) 20 mg IVP Q12 [facility] Multivitamins (Hexavitamin) 1 tab PO DAILY [facility] Last Admin: 01/18/19 10:31 Dose: 1 tab Pantoprazole Sodium (Protonix Ec Tab) 40 mg PO DAILY [facility] Last Admin: 01/18/19 10:32 Dose: 40 mg Phenobarbital (Phenobarbital Tab) 64.8 mg PO Q8 [facility] Last Admin: 01/18/19 13:23 Dose: 64.8 mg - Labs Labs: 01/18/19 10:00 01/18/19 10:00 PT 13.9 SECONDS (9.7-12.2) H 01/13/19 18:01 INR 1.3 01/13/19 18:01 APTT 37 SECONDS (21-34) H 01/13/19 18:01 Assessment and Plan (1) Gram-positive cocci bacteremia Assessment & Plan: repeat blood cultures negative for 24 hours .Continue IV vancomycin 1 g once a day daily. Follow-up Vanco trough level XXX minutes prior to the next dose. Keep it between 10 and 20 mg per mL .Renal functions so far stable. Status: Acute (2) Influenza Assessment & Plan: patient on Tamiflu completed 5 day course. Status: Acute (3) UTI (urinary tract infection) Assessment & Plan: patient on IV Merrem. Follow-up urine culture repeat. Pending Status: Acute (4) Hyponatremia Assessment & Plan: patient did hyponatremia. Sodium 127 still low. Workup for SIADH in progress. Status: Acute (5) History of seizures Status: Chronic (6) History of CVA (cerebrovascular accident) Status: Chronic
[2019-01-18] MEDS: MethylPREDNISolone 40 mg Vial IVP SCH ×2 (17:33→20:59)
--- NOTE | 2019-01-18 19:07 | CP.PCM.CON ---
History of Present Illness - History of Present Illness History of Present Illness: pt is seen and examined, full consult is dictated #[id number] 1. infunza pneumonia 2. hyponatremia. most likely hypotonic hypovolemic hyponatremia can't r/o SIADH 3. dehydration 4. staph. aures sepsis 5. UTI, sec to proteus c/w ivf ns at 70 ml/hr serum na is slowly improving check cea, ca19-9, AFp, stool ob, serum uric acid, check bmp in am Past Patient History - Past Medical History & Family History Past Medical History?: Yes - Past Social History Smoking Status: Never Smoked - CARDIAC Hx Cardiac Disorders: No Hx Angina: No Hx Atrial Fibrillation: No Hx Cardia Arrhythmia: No Hx Circulatory Problems: No Hx Congestive Heart Failure: No Hx Heart Attack: No Hx Heart Murmur: No Hx Heart Transplant: No Hx Hypercholesterolemia: No Hx Hypertension: No Hx Hypotension: No Hx Internal Defibrillator: No Hx Mitral Valve Prolapse: No Hx Pacemaker: No Hx Peripheral Edema: No Hx Peripheral Vascular Disease: No - PULMONARY Hx Respiratory Disorders: No Hx Asthma: No Hx Bronchitis: No Hx Chronic Obstructive Pulmonary Disease (COPD): No Hx Emphysema: No Hx Lung Cancer: No Hx Pneumonia: No Hx Pulmonary Edema: No Hx Pulmonary Embolism: No Hx Respiratory Aspiration: No Hx Respiratory Tract Infection: No Hx Sleep Apnea: No Hx Tuberculosis: No - NEUROLOGICAL HX Cerebrovascular Accident: Yes (R side weakness) - HEENT Hx HEENT Problems: No Hx Blind: No Hx Cataracts: No Hx Deafness: No Hx Difficulty Chewing: No Hx Epistaxis: No Hx Glaucoma: No Hx Macular Degeneration: No Hx Sinusitis: No - RENAL Hx Chronic Kidney Disease: No Hx Dialysis: No Hx Kidney Stones: No Hx Neurogenic Bladder: No Hx Pyelonephritis: No Hx Renal (Kidney) Cancer: No Hx Renal Failure: No - ENDOCRINE/METABOLIC Hx Endocrine Disorders: No Hx Adrenal Cancer: No Hx Diabetes Insipidus: No Hx Diabetes Mellitus Type 1: No Hx Diabetes Mellitus Type 2: No Hx Hyperthyroidism: No Hx Hypothyroidism: No Hx Systemic Lupus Erythematosus: No - HEMATOLOGICAL/ONCOLOGICAL Hx Blood Disorders: No Hx AIDS: No Hx Blood Transfusions: No Hx Blood Transfusion Reaction: No Hx Bruising: No Hx Cancer: No Hx Chemotherapy: No Hx Cirrhosis: No Hx Gum Bleeding: No Hx Hemophilia: No Hx Hepatitis A: No Hx Hepatitis B: No Hx Hepatitis C: No Hx Human Immunodeficiency Virus (HIV): No Hx Leukemia: No Hx Metastesis: No Hx Shingles: No Hx Sickle Cell Disease: No Hx Unexplained Bleeding: No Hx von Willebrand's Disease: No - INTEGUMENTARY Hx Dermatological Problems: No Hx Basil Cell: No Hx Mcnair: No Hx Cellulitis: No Hx Eczema: No Hx Melanoma: No Hx Psoriasis: No Hx Squamous Cell: No Other/Comment: Dermatitis - MUSCULOSKELETAL/RHEUMATOLOGICAL Hx Musculoskeletal Disorders: Yes Hx Arthritis: No Hx Back Pain: No Hx Degenerative Joint Disease: No Hx Falls: Yes Hx Fractures: No Hx Gout: No Hx Herniated Disk: No Hx Myasthenia Gravis: No Hx Osteoarthritis: No Hx Osteomyelitis: No Hx Osteoporosis: No Hx Rhabdomyolysis: No Hx Rheumatoid Arthritis: No Hx Spinal Stenosis: No Hx Unsteady Gait: No - GASTROINTESTINAL Hx Gastrointestinal Disorders: No Hx Bowel Surgery: No Hx Clostridium Difficile: No Hx Colitis: No Hx Colostomy: No Hx Constipation: No Hx Crohn's Disease: No Hx Diarrhea: No Hx Diverticulitis: No Hx Esophageal Varices: No Hx Fatty Liver Disease: No Hx Gall Bladder Disease: No Hx Gastritis: No Hx Gastroesophageal Reflux: No Hx Hemorrhoids: No Hx Ileostomy: No Hx Irritable Bowel: No Hx Liver Failure: No Hx Nausea: No Hx Pancreatitis: No HX Swallowing Problems: No Hx Ulcer: No Hx Vomiting: No - GENITOURINARY/GYNECOLOGICAL Hx Genitourinary Disorders: No Hx Bladder Cancer: No Hx Bladder Stone: No Hx Cervical Cancer: No Hx Hematuria: No Hx Incontinence: No Hx Ovarian Cancer: No Hx Postmenopausal Bleeding: No Hx Reproductive Disorders: No Hx Sexually Transmitted Disorders: No Hx Uterine Cancer: No Hx Urinary Tract Infection: No - PSYCHIATRIC Hx Psychophysiologic Disorder: No Hx Anxiety: No Hx Bipolar Disorder: No Hx Depression: No Hx Emotional Abuse: No Hx Hallucinations: No Hx Panic Symptoms: No Hx Paranoia: No Hx Post Traumatic Stress Disorder: No Hx Psychosis: No Hx Physical Abuse: No Hx Schizophrenia: No Hx Sexual Abuse: No Hx Substance Use: No - SURGICAL HISTORY Hx Surgeries: No Hx Abdominal Aortic Aneurysm Repair: No Hx Amputation: No Hx Angiogram: No Hx Angioplasty: No Hx Appendectomy: No Hx Arteriovenous Shunt: No Hx Arthroscopy: No Hx Bile Duct Stent: No Hx Breast Biopsy: No Hx Cataract Extraction: No Hx Cardiac Catheterization: No Hx Carotid Endarterectomy: No Hx Section: No Hx Cholecystectomy: Yes Hx Coronary Artery Bypass Graft: No Hx Coronary Stent: No Hx Dilation and Curettage: No Hx Eye Surgery: No Hx Femoral-Popliteal Bypass Graft: No Hx Gastric Bypass Surgery: No Hx Herniorrhaphy: No Hx Hysterectomy: No Hx Joint Replacement: No Hx Kidney Transplant: No Hx Liver Transplant: No Hx Mastectomy: No Hx Musculoskeletal Surgery: No Hx Open Heart Surgery: No Hx Open Reduction Internal Fixation: No Hx Orthopedic Surgery: No Hx Parathyroidectomy: No Hx Penile Implant: No Hx Pulmonary Surgery: No Hx Splenectomy: No Hx Thyroidectomy: No Hx Tonsillectomy: No Hx Tubal Ligation: No Hx Valve Replacement: No Hx Vascular Surgery: No Hx Vascular Access Device: No - ANESTHESIA Hx Anesthesia: Yes Hx Anesthesia Reactions: No Meds Allergies/Adverse Reactions: Allergies Allergy/AdvReac Type Severity Reaction Status Date / Time No Known Allergies Allergy Verified 01/13/19 17:11 - Medications Medications: Current Medications Acetaminophen (Tylenol 325mg Tab) 650 mg PO Q4 PRN PRN Reason: Fever >100.4 F Last Admin: 01/17/19 16:22 Dose: 650 mg Benzocaine/Menthol (Cepacol Sore Throat) 1 tanya MT Q4 [facility] Last Admin: 01/18/19 17:00 Dose: 1 tanya Bethanechol Chloride (Urecholine) 25 mg PO TID [facility] Last Admin: 01/18/19 17:35 Dose: 25 mg Diphenhydramine HCl (Benadryl) 25 mg PO Q6 PRN PRN Reason: Allergy symptoms Docusate Sodium (Colace) 100 mg PO BID PRN PRN Reason: Constipation Last Admin: 01/16/19 10:15 Dose: 100 mg Enoxaparin Sodium (Lovenox) 40 mg SC DAILY [facility] Last Admin: 01/18/19 10:32 Dose: 40 mg Ferrous Sulfate (Feosol) 325 mg PO DAILY [facility] Last Admin: 01/18/19 10:32 Dose: 325 mg Guaifenesin (Robitussin) 100 mg PO Q4H PRN PRN Reason: Cough Last Admin: 01/17/19 10:32 Dose: 100 mg Guaifenesin (Mucinex La) 600 mg PO BID [facility] Last Admin: 01/18/19 17:35 Dose: 600 mg Meropenem 500 mg/ Sodium (Chloride) 100 mls @ 100 mls/hr IVPB Q8H [facility]; Protocol Last Admin: 01/18/19 11:20 Dose: 100 mls/hr Vancomycin HCl (Vancocin 750mg/Ns 150 Ml) 150 mls @ 150 mls/hr IVPB Q12H [facility]; Protocol Stop: 01/24/19 06:31 Magnesium Hydroxide (Milk Of Magnesia) 30 ml PO DAILY PRN PRN Reason: Constipation Methylprednisolone (Solu-Medrol) 20 mg IVP Q12 [facility] Last Admin: 01/18/19 17:33 Dose: 20 mg Multivitamins (Hexavitamin) 1 tab PO DAILY [facility] Last Admin: 01/18/19 10:31 Dose: 1 tab Pantoprazole Sodium (Protonix Ec Tab) 40 mg PO DAILY [facility] Last Admin: 01/18/19 10:32 Dose: 40 mg Phenobarbital (Phenobarbital Tab) 64.8 mg PO Q8 [facility] Last Admin: 01/18/19 13:23 Dose: 64.8 mg Results - Vital Signs Recent Vital Signs: Last Vital Signs Temp 97.8 F 01/18/19 16:00 Pulse 81 01/18/19 16:00 Resp 20 01/18/19 16:00 BP 142/81 01/18/19 16:00 Pulse Ox 98 01/18/19 16:00 - Labs Result Diagrams: 01/18/19 10:00 01/18/19 10:00 Labs: Laboratory Results - last 24 hr 01/17/19 01/17/19 01/18/19 22:39 22:39 06:48 WBC RBC Hgb Hct MCV MCH MCHC RDW Plt Count MPV Neut % (Auto) Lymph % (Auto) Ransom % (Auto) Eos % (Auto) Baso % (Auto) Neut # (Auto) Lymph # (Auto) Ransom # (Auto) Eos # (Auto) Baso # (Auto) Sodium Potassium Chloride Carbon Dioxide Anion Gap BUN Creatinine Est GFR ( Amer) Est GFR (Non-Af Amer) Random Glucose Calcium TSH 3rd Generation Cortisol AM Sample 4.6 Urine Color Straw Urine Clarity Clear Urine pH 7.0 Ur Specific [place] 1.003 Urine Protein Negative Urine Glucose (UA) Normal Urine Ketones Negative Urine Blood Negative Urine Nitrate Negative Urine Bilirubin Negative Urine Urobilinogen Normal Ur Leukocyte Esterase 2+ H Urine WBC (Auto) 8 H Urine RBC (Auto) 3 Ur Squamous Epith Cells < 1 Urine Bacteria Rare Urine Osmolality 141 L Ur Random Creatinine 4.6 Ur Random Sodium 55 Vancomycin Trough 01/18/19 01/18/19 01/18/19 06:48 10:00 10:00 WBC 3.2 L RBC 3.60 L Hgb 12.1 Hct 35.3 MCV 98.0 MCH 33.5 H MCHC 34.2 RDW 13.1 Plt Count 239 MPV 8.6 Neut % (Auto) 52.5 Lymph % (Auto) 30.8 Ransom % (Auto) 14.9 H Eos % (Auto) 1.2 Baso % (Auto) 0.6 Neut # (Auto) 1.7 L Lymph # (Auto) 1.0 Ransom # (Auto) 0.5 Eos # (Auto) 0.0 Baso # (Auto) 0.0 Sodium 127 L Potassium 3.9 4.0 Chloride 95 L Carbon Dioxide 24 Anion Gap 13 BUN 5 L Creatinine 0.2 L Est GFR ( Amer) > 60 Est GFR (Non-Af Amer) > 60 Random Glucose 86 D Calcium 8.4 L TSH 3rd Generation 1.72 Cortisol AM Sample Urine Color Urine Clarity Urine pH Ur Specific [place] Urine Protein Urine Glucose (UA) Urine Ketones Urine Blood Urine Nitrate Urine Bilirubin Urine Urobilinogen Ur Leukocyte Esterase Urine WBC (Auto) Urine RBC (Auto) Ur Squamous Epith Cells Urine Bacteria Urine Osmolality Ur Random Creatinine Ur Random Sodium Vancomycin Trough 01/18/19 17:21 WBC RBC Hgb Hct MCV MCH MCHC RDW Plt Count MPV Neut % (Auto) Lymph % (Auto) Ransom % (Auto) Eos % (Auto) Baso % (Auto) Neut # (Auto) Lymph # (Auto) Ransom # (Auto) Eos # (Auto) Baso # (Auto) Sodium Potassium Chloride Carbon Dioxide Anion Gap BUN Creatinine Est GFR ( Amer) Est GFR (Non-Af Amer) Random Glucose Calcium TSH 3rd Generation Cortisol AM Sample Urine Color Urine Clarity Urine pH Ur Specific [place] Urine Protein Urine Glucose (UA) Urine Ketones Urine Blood Urine Nitrate Urine Bilirubin Urine Urobilinogen Ur Leukocyte Esterase Urine WBC (Auto) Urine RBC (Auto) Ur Squamous Epith Cells Urine Bacteria Urine Osmolality Ur Random Creatinine Ur Random Sodium Vancomycin Trough 5.3
[2019-01-18] MEDS: guaiFENesin 100 mg/5 ml Syrup UD PO PRN (20:58)
--- NOTE | 2019-01-18 21:16 | CP.PCM.PN ---
Subjective - Date & Time of Evaluation Date of Evaluation: 01/18/19 Time of Evaluation: 08:40 - Subjective Subjective: dictated Objective - Vital Signs/Intake and Output Vital Signs (last 24 hours): Temp Pulse Resp BP Pulse Ox 97.8 F 81 20 142/81 98 01/18/19 16:00 01/18/19 16:00 01/18/19 16:00 01/18/19 16:00 01/18/19 16:00 Intake and Output: 01/18/19 01/19/19 18:59 06:59 Intake Total 985 Output Total 800 Balance 185 - Medications Medications: Current Medications Acetaminophen (Tylenol 325mg Tab) 650 mg PO Q4 PRN PRN Reason: Fever >100.4 F Last Admin: 01/17/19 16:22 Dose: 650 mg Benzocaine/Menthol (Cepacol Sore Throat) 1 tanya MT Q4 [facility] Last Admin: 01/18/19 20:37 Dose: Not Given Bethanechol Chloride (Urecholine) 25 mg PO TID [facility] Last Admin: 01/18/19 17:35 Dose: 25 mg Diphenhydramine HCl (Benadryl) 25 mg PO Q6 PRN PRN Reason: Allergy symptoms Last Admin: 01/18/19 20:59 Dose: 25 mg Docusate Sodium (Colace) 100 mg PO BID PRN PRN Reason: Constipation Last Admin: 01/16/19 10:15 Dose: 100 mg Enoxaparin Sodium (Lovenox) 40 mg SC DAILY [facility] Last Admin: 01/18/19 10:32 Dose: 40 mg Ferrous Sulfate (Feosol) 325 mg PO DAILY [facility] Last Admin: 01/18/19 10:32 Dose: 325 mg Guaifenesin (Robitussin) 100 mg PO Q4H PRN PRN Reason: Cough Last Admin: 01/18/19 20:58 Dose: 100 mg Guaifenesin (Mucinex La) 600 mg PO BID [facility] Last Admin: 01/18/19 17:35 Dose: 600 mg Meropenem 500 mg/ Sodium (Chloride) 100 mls @ 100 mls/hr IVPB Q8H [facility]; Protocol Last Admin: 01/18/19 20:58 Dose: 100 mls/hr Vancomycin HCl 750 mg/ Sodium (Chloride) 250 mls @ 150 mls/hr IVPB Q12H [facility]; Protocol Stop: 01/24/19 06:31 Magnesium Hydroxide (Milk Of Magnesia) 30 ml PO DAILY PRN PRN Reason: Constipation Methylprednisolone (Solu-Medrol) 20 mg IVP Q12 [facility] Last Admin: 01/18/19 20:59 Dose: 20 mg Multivitamins (Hexavitamin) 1 tab PO DAILY [facility] Last Admin: 01/18/19 10:31 Dose: 1 tab Pantoprazole Sodium (Protonix Ec Tab) 40 mg PO DAILY [facility] Last Admin: 01/18/19 10:32 Dose: 40 mg Phenobarbital (Phenobarbital Tab) 64.8 mg PO Q8 [facility] Last Admin: 01/18/19 20:59 Dose: 64.8 mg - Labs Labs: 01/18/19 10:00 01/18/19 10:00 PT 13.9 SECONDS (9.7-12.2) H 01/13/19 18:01 INR 1.3 01/13/19 18:01 APTT 37 SECONDS (21-34) H 01/13/19 18:01
[2019-01-19] MEDS: Benzocaine/Menthol (Cepacol) Lozenge MT SCH ×7 (00:04→20:23)
--- NOTE | 2019-01-19 01:03 | PN ---
DATE: 01/18/2019 SUBJECTIVE: The patient feels better. The patient is still congested. Mild wheezing. No fever. No nausea or vomiting. PHYSICAL EXAMINATION: VITAL SIGNS: Blood pressure 142/81, pulse 81, respiratory rate 20, temperature 97.8. LUNGS: Decreased air entry. Positive rhonchi. CARDIOVASCULAR SYSTEM: S1 and S2, regular. ABDOMEN: Soft. ASSESSMENT: 1. Flu. 2. Urinary tract infection due to Proteus mirabilis which is multidrug resistant. 3. Hypertension. PLAN: Solu-Medrol single dose. Expectorant. Monitor the patient. Abraham Rodas MD
[2019-01-19] MEDS: Meropenem 500 MG in Sodium Chloride 0.9% 100 ML IVPB SCH ×3 (03:19→20:24)
--- NOTE | 2019-01-19 05:41 | CON ---
DATE: 01/18/2019 RENAL CONSULTATION LOCATION: The patient is located in room 655. REQUESTED BY: Abraham Rodas MD REASON FOR EVALUATION: Hyponatremia, rule out SIADH, for further evaluation. HISTORY OF PRESENT ILLNESS: Mrs. 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 The patient denies any nausea, vomiting. Denies any chest pain, shortness of breath. Denies any abdominal pain. Denies any swelling of the legs. The patient does complain of deformities of the both ankles. The patient is not in acute distress except occasional cough. PAST MEDICAL HISTORY: Significant for CVA with right-sided weakness and seizures. PAST SURGICAL HISTORY: Status post cholecystectomy and bilateral ovarian cyst removal, questionable hysterectomy, and also right hip surgery. ALLERGIES: NO KNOWN DRUG ALLERGIES. SOCIAL HISTORY: Denies any smoking, alcohol, or drugs. PERSONAL HISTORY: She is single, not and no children. FAMILY HISTORY: Not significant. CURRENT MEDICATIONS: Include as follows: Benadryl 25 mg p.o. every 6 hours p.r.n., Cepacol throat lozenges, Colace 100 mg p.o. b.i.d., Feosol 325 mg p.o. daily, multivitamin 1 tablet daily, Lovenox 40 mg subcu daily, meropenem 500 mg every 8 hours, Milk of magnesia 30 mL p.o. daily, Mucinex 600 mg p.o. b.i.d., phenobarbital 64.8 mg p.o. every 8 hours, Protonix 40 mg p.o. daily, Robitussin 100 mg p.o. every 4 hours p.r.n., Solu-Medrol 20 mg IV every 12 hours, Tylenol, bethanechol 25 mg p.o. t.i.d., vancomycin 750 mg every 12 hours. REVIEW OF SYSTEMS: Significant for cough and fever. All other review of systems are reviewed and are negative. PHYSICAL EXAMINATION: VITAL SIGNS: As follows: Blood pressure 142/81, pulse 81, respirations 20, temperature 97.8, saturation 98%, height 5 feet 1 inch, weight is 125 pounds. GENERAL: Mrs. Weber is an 83-year-old elderly female, moderately built, moderately nourished, not in acute distress with a deformity of both ankles. HEENT: Pupils normal and reactive to light and accommodation. Conjunctivae pink. Sclerae anicteric. Tongue is moist. Trachea is midline. No thyroid enlargement LUNGS: Symmetric on both sides. Bilateral breath sounds present. Clear to auscultation. CARDIOVASCULAR SYSTEM: Orient at the fifth intercostal space, midclavicular line. S1, S2 audible. No murmur or gallop. ABDOMEN: The patient has a scar in the midline subumbilical region and also right upper quadrant scar is present. Abdomen is soft, tympanitic. No guarding, no rigidity. No hepatosplenomegaly. CENTRAL NERVOUS SYSTEM: The patient is alert, awake and oriented x3. Sensory system is grossly within normal limits. Motor system, moving all the extremities. EXTREMITIES: The patient has deformities of both ankles. LABORATORY DATA: Includes as follows: As of 01/13/2019, WBC 7.1, hemoglobin 14.1, hematocrit is 41.2, platelets 184. Neutrophils 82, bands 4, lymphs 7, reactive lymph 1, and monocytes 6. Sodium 123, potassium 3.9, chloride 89, CO2 of 21, BUN 9, creatinine 0.3 and glucose 99. Calcium 8.5, phosphorus 3.5, and magnesium 1.8. Total bili 0.6, AST 39, ALT 22, alkaline phosphatase 97, total protein 7.6, albumin is 4.3. Urinalysis, yellow, hazy, pH 7, specific gravity 1.003 and protein 1+, glucose normal, ketones negative, blood 1+, nitrites negative, bilirubin negative, urobilinogen normal, leukocyte esterase 3+, wbc 10, rbc 2, bacteria few. Influenza A and B positive for influenza A. Other laboratory data: As of 01/14/2019, sodium 124. As of 01/15/2019, sodium is 126. As of 01/16/2019, sodium is 127, potassium 4.6, chloride 95, CO2 of 25, BUN 3, creatinine 0.3, glucose 86, calcium 8.3. Other laboratory data, as of 01/18/2019, WBC 3.2, hemoglobin 12.1, hematocrit is 35.3, platelets 239. Sodium 127, potassium is 4 and chloride 95, CO2 of 24, BUN 5, creatinine 0.2, glucose 86, calcium 8.4. TSH is 1.72 and serum cortisol is 4.6. Urine osmolality 141, urine creatinine is 4.6. Urine sodium is 55. Urinalysis, straw color, clear, pH 7, specific gravity 1.003, protein negative, and glucose normal, ketones negative, blood negative, nitrites negative, bilirubin negative, urobilinogen normal. Leukocyte esterase 2+, wbc 8, rbc 3, and bacteria is rare. Blood cultures as of 01/13/2019, positive for Staph aureus and urine culture positive for Proteus mirabilis. Repeat blood cultures as of 01/17/2019, negative day one x2. Chest x-ray as of 01/13/2019, no hiatal hernia, no acute infiltrate. ASSESSMENT: In summary, Mrs. Weber is about 83-year-old female with a history of cerebrovascular accident with right-sided weakness, seizures, status post cholecystectomy, hysterectomy, status post right hip surgery, was admitted with cough and fever and found to have influenza A positive and also blood culture positive for Staphylococcus aureus x1 and urine culture positive for Proteus mirabilis with low serum sodium and with poor skin turgor. 1. Hyponatremia, most likely secondary to hypotonic hypovolemic hyponatremia. Cannot rule out syndrome of inappropriate antidiuretic hormone secretion, less likely. 2. Influenza pneumonia. 3. Staphylococcus aureus sepsis. 4. Urinary tract infection with Proteus mirabilis. 5. Dehydration. PLAN: Continue IV fluids normal saline at 70 mL/hour. Repeat BMP in a.m. Serum sodium is slowly improving. Continue IV antibiotics as per ID recommendation, meropenem and vancomycin. Status post Tamiflu x2 days. We will follow up with you. Thank you for allowing me to participate in your patient's care. Crystal Morales MD [facility] # [id number]
[2019-01-19] MEDS: guaiFENesin 100 mg/5 ml Syrup UD PO PRN ×3 (06:02→21:27)
[2019-01-19 07:42] LABS: BLOOD UREA NITROGEN 5 mg/dL (7-17); CALCIUM 8.6 mg/dl (8.6-10.4); GFR NON-AFRICAN AMERICAN > 60
[2019-01-19] MEDS ORDERED: Potassium Chloride 20 mEq/15 ml LIQ UD PO ONE (09:30)
[2019-01-19] MEDS: Multiple Vitamins Tab PO SCH (10:25)
[2019-01-19] MEDS: Enoxaparin 40 mg Syringe SC SCH (10:25)
[2019-01-19] MEDS: guaiFENesin 600 mg ER Tab PO SCH ×2 (10:25→17:24)
[2019-01-19] MEDS: Pantoprazole 40 mg EC Tab PO SCH (10:26)
[2019-01-19] MEDS: MethylPREDNISolone 40 mg Vial IVP SCH ×2 (10:26→21:27)
[2019-01-19] MEDS ORDERED: Potassium Chloride 20 mEq ER Tab PO STA (11:32)
--- NOTE | 2019-01-19 11:32 | CP.PCM.PN ---
Subjective - Date & Time of Evaluation Date of Evaluation: 01/19/19 Time of Evaluation: 11:31 - Subjective Subjective: pt is seen and examined, follow up consult is dictated #[id number] 1. hyponatremia, r/o siadh 2. hypokalemia 3. seizers 4. Influnza A +ve, s/p tamiflu x 5 days will add tolvaptan 30 mg po x1, bmp in am supplement k+ Objective - Vital Signs/Intake and Output Vital Signs (last 24 hours): Temp Pulse Resp BP Pulse Ox 97.7 F 76 20 168/90 H 98 01/19/19 07:00 01/19/19 07:00 01/19/19 07:00 01/19/19 07:00 01/19/19 07:00 Intake and Output: 01/19/19 01/19/19 06:59 18:59 Intake Total 680 Output Total 400 Balance 280 - Medications Medications: Current Medications Acetaminophen (Tylenol 325mg Tab) 650 mg PO Q4 PRN PRN Reason: Fever >100.4 F Last Admin: 01/17/19 16:22 Dose: 650 mg Benzocaine/Menthol (Cepacol Sore Throat) 1 tanya MT Q4 [facility] Last Admin: 01/19/19 07:57 Dose: Not Given Bethanechol Chloride (Urecholine) 25 mg PO TID [facility] Last Admin: 01/19/19 10:28 Dose: 25 mg Diphenhydramine HCl (Benadryl) 25 mg PO Q6 PRN PRN Reason: Allergy symptoms Last Admin: 01/18/19 20:59 Dose: 25 mg Docusate Sodium (Colace) 100 mg PO BID PRN PRN Reason: Constipation Last Admin: 01/16/19 10:15 Dose: 100 mg Enoxaparin Sodium (Lovenox) 40 mg SC DAILY [facility] Last Admin: 01/19/19 10:25 Dose: 40 mg Ferrous Sulfate (Feosol) 325 mg PO DAILY [facility] Last Admin: 01/19/19 10:25 Dose: 325 mg Guaifenesin (Robitussin) 100 mg PO Q4H PRN PRN Reason: Cough Last Admin: 01/19/19 06:02 Dose: 100 mg Guaifenesin (Mucinex La) 600 mg PO BID [facility] Last Admin: 03/01/19 10:25 Dose: 600 mg Meropenem 500 mg/ Sodium (Chloride) 100 mls @ 100 mls/hr IVPB Q8H [facility]; Protocol Last Admin: 01/19/19 03:19 Dose: 100 mls/hr Magnesium Hydroxide (Milk Of Magnesia) 30 ml PO DAILY PRN PRN Reason: Constipation Methylprednisolone (Solu-Medrol) 20 mg IVP Q12 [facility] Last Admin: 01/19/19 10:26 Dose: 20 mg Multivitamins (Hexavitamin) 1 tab PO DAILY [facility] Last Admin: 01/19/19 10:25 Dose: 1 tab Pantoprazole Sodium (Protonix Ec Tab) 40 mg PO DAILY [facility] Last Admin: 01/19/19 10:26 Dose: 40 mg Phenobarbital (Phenobarbital Tab) 64.8 mg PO Q8 [facility] Last Admin: 01/19/19 06:02 Dose: 64.8 mg - Labs Labs: 01/18/19 10:00 01/19/19 07:16 PT 13.9 SECONDS (9.7-12.2) H 01/13/19 18:01 INR 1.3 01/13/19 18:01 APTT 37 SECONDS (21-34) H 01/13/19 18:01
--- NOTE | 2019-01-19 12:18 | CT ---
Date of service: 01/19/2019 PROCEDURE: CT Chest without contrast HISTORY: flu, cough, congestion r/o pneumonia COMPARISON: None available. TECHNIQUE: Contiguous axial images were obtained through the chest without intravenous contrast enhancement. Sagittal and coronal reconstructions were performed. Radiation dose: Total exam DLP = 208.8 mGy-cm. This CT exam was performed using one or more of the following dose reduction techniques: Automated exposure control, adjustment of the mA and/or kV according to patient size, and/or use of iterative reconstruction technique. FINDINGS: LUNGS: Small focal ground-glass airspace opacity noted right upper lobe posteriorly. Small area of scarring noted right lung apex. There are emphysematous changes. Minimal posterior dependent atelectasis noted. Mild left basilar atelectasis noted posteriorly. There is a 0.3 cm nodule in the left upper lobe (axial series 3, image 55).The trachea and major segmental bronchi are patent. MEDIASTINUM: Heart size is normal. Coronary vessel calcifications are noted. There is no significant pericardial effusion. Thoracic aorta is normal in caliber and contains scattered atherosclerotic calcifications. There is no significant axillary or mediastinal lymphadenopathy. Evaluation for hilar lymphadenopathy is limited without IV contrast. PLEURA: No pleural effusion is identified. BONES: Visualized osseous structures demonstrate degenerative changes. Old healed left-sided rib fractures noted. Stable anterior wedge deformities of T10 and T11 when compared to prior CT abdomen pelvis of 03/15/2018. Inferior compression deformity of T1 with up to 25 % loss of vertebral body height, age indeterminate. UPPER ABDOMEN: There is a large hiatal hernia. Mild to moderate fatty atrophy noted of the pancreatic head and body. There is mild nonspecific thickening of the bilateral adrenal glands. Visualized portions of large bowel demonstrate large volume of stool. Remainder of the visualized upper abdominal viscera are grossly unremarkable. OTHER FINDINGS: None. IMPRESSION: Small focal ground-glass airspace opacity right upper lobe, likely infectious/inflammatory process. Large hiatal hernia. Age indeterminate compression deformity of T1 as above. Additional findings as above.
--- NOTE | 2019-01-19 23:44 | CP.PCM.PN ---
Subjective - Date & Time of Evaluation Date of Evaluation: 01/19/19 Time of Evaluation: 23:44 - Subjective Subjective: CHIEF COMPLAINTS TODAY : AFEBRILE, NO NEW COMPLAINTS ON IV ABX / OFF PO TAMIFLUE X 5 DAYS ROS. HEENT : N. Resp : +VE cough, NO wheezing ,pleuritic CP ,or hemoptysis Cardio : No anginal CP, PND, orthopnea, palpitation GI : No abd.pain, n/v ,diarrhea or GI bleeding . ROLLER STITCHER : No headache, vertigo, focal deficit. Musculoskel : No joint swelling , Derm : No rash Psych : Normal affect. Ext : No swelling ,calf pain PE. Pt. is alert awake in no distress. V.S As noted in the chart Head ,ear nose,throat and eyes : Normal. Neck : Supple with normal carotids. Lungs: FEW RHONCHI RT UPPER LUNG Heart : S1 & S2 normal with S4. No murmur. Abd : Soft non tender with normal bowel sounds. Neuro : Moves all ext. with no localized deficit. Ext : No edema with intact pulses.Non tender calves Derm : No rashes or decubitus ulcer. LABS/RADIOLOGY: 01/18/[address] CHEST W/O CONTRAST ;-small focal groundglass airspace opacity RUL- likely infectious versus inflammatory. no LA -VE PLEURAL EFFUSION, LARGE HIATAL HERNIA.. REPEAT BLOOD CULTURES 01/17/19 -VE X 48 HOURS. REPEAT URINE CULTURE 01/18/19 NEGATIVE WBC 3.2 H/H STABLE, PLATELETS 239 CREAT 0.2/ bun 5 NA ; 125 LOW vANCO TROUGH 5.3 LOW ( INCREASED VANCOMYCIN 750 EVERY 12HRLY. ) BLOOD CULTURE +VE MSSA URINE CULTURE +VE PROTEUS MIRABLIS S- MERREM Objective - Vital Signs/Intake and Output Vital Signs (last 24 hours): Temp Pulse Resp BP Pulse Ox 97.7 F 80 20 122/73 99 01/19/19 15:05 01/19/19 15:05 01/19/19 15:05 01/19/19 15:05 01/19/19 15:05 Intake and Output: 01/19/19 01/20/19 18:59 06:59 Intake Total 400 Output Total 900 Balance -500 - Medications Medications: Current Medications Acetaminophen (Tylenol 325mg Tab) 650 mg PO Q4 PRN PRN Reason: Fever >100.4 F Last Admin: 01/19/19 21:26 Dose: 650 mg Benzocaine/Menthol (Cepacol Sore Throat) 1 tanya MT Q4 [facility] Last Admin: 01/19/19 20:23 Dose: Not Given Bethanechol Chloride (Urecholine) 25 mg PO TID [facility] Last Admin: 01/19/19 17:24 Dose: 25 mg Diphenhydramine HCl (Benadryl) 25 mg PO Q6 PRN PRN Reason: Allergy symptoms Last Admin: 01/19/19 21:27 Dose: 25 mg Docusate Sodium (Colace) 100 mg PO BID PRN PRN Reason: Constipation Last Admin: 01/16/19 10:15 Dose: 100 mg Enoxaparin Sodium (Lovenox) 40 mg SC DAILY [facility] Last Admin: 01/19/19 10:25 Dose: 40 mg Ferrous Sulfate (Feosol) 325 mg PO DAILY [facility] Last Admin: 01/19/19 10:25 Dose: 325 mg Guaifenesin (Robitussin) 100 mg PO Q4H PRN PRN Reason: Cough Last Admin: 01/19/19 21:27 Dose: 100 mg Guaifenesin (Mucinex La) 600 mg PO BID [facility] Last Admin: 01/19/19 17:24 Dose: 600 mg Meropenem 500 mg/ Sodium (Chloride) 100 mls @ 100 mls/hr IVPB Q8H [facility]; Protocol Last Admin: 01/19/19 20:24 Dose: 100 mls/hr Magnesium Hydroxide (Milk Of Magnesia) 30 ml PO DAILY PRN PRN Reason: Constipation Methylprednisolone (Solu-Medrol) 20 mg IVP Q12 [facility] Last Admin: 01/19/19 21:27 Dose: 20 mg Multivitamins (Hexavitamin) 1 tab PO DAILY [facility] Last Admin: 01/19/19 10:25 Dose: 1 tab Pantoprazole Sodium (Protonix Ec Tab) 40 mg PO DAILY [facility] Last Admin: 01/19/19 10:26 Dose: 40 mg Phenobarbital (Phenobarbital Tab) 64.8 mg PO Q8 [facility] Last Admin: 01/19/19 21:26 Dose: 64.8 mg Potassium Chloride (K-Dur 20 Meq Er Tab) 20 meq PO DAILY [facility] Stop: 01/22/19 10:01 - Labs Labs: 01/18/19 10:00 01/19/19 07:16 PT 13.9 SECONDS (9.7-12.2) H 01/13/19 18:01 INR 1.3 01/13/19 18:01 APTT 37 SECONDS (21-34) H 01/13/19 18:01 Assessment and Plan (1) Gram-positive cocci bacteremia Assessment & Plan: PATIENT HAS METHICILLIN SENSITIVE STAPH AUREUS BACTEREMIA. rEPEAT BLOOD CULTURES 01/17/19 NEGATIVE FOR 48 HOURS.. PATIENT PRESENTLY ON VANCOMYCIN 750 MG EVERY 12 HOURLY. 01/15/19 F/U VANC TROUGH ON TUESDAY. SOURCE OF MSSA BACTEREMIA NOT CLEAR. CHECK 2D ECHO R/O SBE.-P Status: Acute (2) Influenza Assessment & Plan: PT HAS RUL GROUND GLASS OPACITY ON CT CHEST - MOST LIKELY VIRAL +VE INFLUENZA. SCREEN FOR MRSA Status: Acute (3) UTI (urinary tract infection) Assessment & Plan: patient on IV Merrem.01/15/19 Follow-up urine culture repeat -VE . CONTINUE IV MERREM FOR NOW-DAY 5 X 5DAYS MORE- TILL 01/24/19 Status: Acute (4) Hyponatremia Status: Acute (5) History of seizures Status: Chronic (6) History of CVA (cerebrovascular accident) Status: Chronic
[2019-01-20] MEDS: Benzocaine/Menthol (Cepacol) Lozenge MT SCH ×4 (04:44→11:57)
[2019-01-20] MEDS: Meropenem 500 MG in Sodium Chloride 0.9% 100 ML IVPB SCH ×2 (04:48→11:56)
--- NOTE | 2019-01-20 04:58 | PN ---
DATE: 01/19/2019 FOLLOWUP RENAL CONSULTATION LOCATION: The patient is located in room 655. REASON FOR FOLLOWUP: Hyponatremia, for further evaluation. REQUESTED BY: Abraham Rodas MD SUBJECTIVE: Mrs. Weber is an 83-year-old elderly female with a past medical history significant for CVA, seizure disorder, status post cholecystectomy, status post hysterectomy, status post right hip surgery and also injury to left foot with deformity of the both ankles, bedridden who was admitted with chief complaints of weakness, fever, cough for about one week and found to have influenza A positive and started on Tamiflu. The patient received five days course of Tamiflu. The patient still complains of cough, not in acute distress. No chest pain. No palpitation. No fever. No cough. No abdominal pain. No nausea, vomiting, or diarrhea. PHYSICAL EXAMINATION: VITAL SIGNS: This morning as follows: Blood pressure 168/90, pulse 76, respirations 20, temperature 97.7, saturation 98%. Height 5 feet 1 inch. Weight is 125 pounds. GENERAL: Mrs. Weber is an 83-year-old elderly female, moderately built, moderately nourished, not in acute distress. HEENT: Pupils normal and reactive to light and accommodation. Conjunctivae pink. Sclerae anicteric. Tongue is moist. Trachea is midline. LUNGS: Symmetric on both sides. Bilateral breath sounds present. Clear to auscultation. CARDIOVASCULAR SYSTEM: [place] at the fifth intercostal space, midclavicular line. S1 and S2 audible. No murmur or gallop. ABDOMEN: Normal in appearance. Soft, tympanitic. No guarding. No rigidity. No hepatosplenomegaly. CENTRAL NERVOUS SYSTEM: The patient is alert, awake and oriented x3. Nonfocal neuro examination. Cranial nerves II through XII grossly intact. Sensory and motor system is within normal limits. EXTREMITIES: No cyanosis, no clubbing, no edema. The patient has deformity of the both ankles. CURRENT MEDICATIONS: Include as follows: Benadryl 25 mg p.o. every 6 hours p.r.n., Cepacol throat lozenges, Colace 100 mg p.o. b.i.d., Feosol 325 mg p.o. daily, multivitamin one tablet daily, K-Dur 20 mEq p.o. daily, Lovenox 40 mg subcu daily, meropenem 500 mg IV every 8 hours, milk of magnesia, Mucinex 600 mg p.o. b.i.d., phenobarbital 64.8 mg p.o. every 8 hours, Protonix 40 mg p.o. daily, methylprednisolone 20 mg IV every 12 hours, Tylenol, and Urecholine 25 mg p.o. t.i.d. LABORATORY DATA: Includes as follows: As of 01/19/2019, sodium 125, potassium 3.4, chloride 96, CO2 of 21, BUN 5, creatinine 0.3, glucose 85, calcium 8.6. Alpha-fetoprotein 2.3, CA19-9 is 6.6, and CEA is 125. Stool for occult blood is negative, and serum uric acid level is 1.8 as of 01/18/2019. As of 01/17/2019, urine osmolality 141, urine creatinine is 4.6, urine sodium is 55, urine chloride 51. ASSESSMENT AND PLAN: In summary, Mrs. Weber is an 83-year-old elderly female with a history of questionable hypertension, cerebrovascular accident, seizure disorder, bedridden with deformity of the both ankles who was admitted with fever, shortness of breath and cough, and found to have influenza A antibody positive, status post treatment for influenza and pneumonia with Tamiflu for five days with low serum sodium. 1. Status post influenza and pneumonia. 2. Hyponatremia, most likely secondary to syndrome of inappropriate secretion of antidiuretic hormone. All the workup is within normal limits. Urine sodium is more than 20, urine osmolality more than 100, and serum uric acid level is low. 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 We will give tolvaptan 30 mg by mouth x1 dose. Repeat basic metabolic panel in the morning and also high-protein diet. We will give her by mouth two times a day. We will follow up with you. Thank you for allowing me to participate in your patient's care. 3. Seizure disorder. Continue phenobarbital. Repeat basic metabolic panel in the morning. Discuss with nurse practitioner in rounds. Crystal Morales MD
--- NOTE | 2019-01-20 06:10 | DS ---
DISCHARGE DIAGNOSES: 1. Flu. 2. Urinary tract infection. 3. Dehydration. 4. Chronic obstructive pulmonary disease. 5. Hypertension. HISTORY OF PRESENT ILLNESS: This is an elderly white female with history of COPD, hypertension, anxiety. The patient came in because of cough, congestion, nasal secretion, chills, rigors, dysuria, frequency. The patient was admitted to the floor. She was started on Tamiflu, IV fluids, hydration, potassium supplementation. Vital signs monitoring close observation and the patient did well. The patient had lot of congestion and sore throat which responded to antibiotics and Solu-Medrol. The patient is feeling better and her urine is clear. Her urine culture repeat are negative. She is for discharge back to subacute rehab. PHYSICAL EXAMINATION: LUNGS: Bilateral scattered rhonchi. Decreased air entry. CARDIOVASCULAR: S1 and S2, regular. ABDOMEN: Soft. Nontender. Bowel sounds are positive. PLAN: Discharge the patient. Abraham Rodas MD
[2019-01-20 08:08] VITALS: O2SAT 99
[2019-01-20 08:12] LABS: BLOOD UREA NITROGEN 8 mg/dL (7-17); CALCIUM 8.9 mg/dl (8.6-10.4); GFR NON-AFRICAN AMERICAN > 60
[2019-01-20] MEDS ORDERED: Potassium Chloride 20 mEq ER Tab PO SCH (10:00)
[2019-01-20] MEDS: MethylPREDNISolone 40 mg Vial IVP SCH (10:09)
[2019-01-20] MEDS: Pantoprazole 40 mg EC Tab PO SCH (10:10)
[2019-01-20] MEDS: guaiFENesin 600 mg ER Tab PO SCH (10:15)
[2019-01-20] MEDS: Enoxaparin 40 mg Syringe SC SCH (10:20)
[2019-01-20] MEDS: Multiple Vitamins Tab PO SCH (10:25)
[2019-01-20 16:28] VITALS: BP 127/75; PULSE 84; TEMP 98.5
--- NOTE | 2019-01-20 18:05 | CP.PCM.PN ---
Subjective - Date & Time of Evaluation Date of Evaluation: 01/20/19 Time of Evaluation: 11:00 - Subjective Subjective: awake, alert, follows commands, no sob or pain, no acute distress. Objective - Vital Signs/Intake and Output Vital Signs (last 24 hours): Temp Pulse Resp BP Pulse Ox 98.5 F 84 20 127/75 99 01/20/19 15:00 01/20/19 15:00 01/20/19 15:00 01/20/19 15:00 01/20/19 07:00 Intake and Output: 01/20/19 01/20/19 06:59 18:59 Intake Total 400 Output Total 500 Balance -100 - Medications Medications: Current Medications Acetaminophen (Tylenol 325mg Tab) 650 mg PO Q4 PRN PRN Reason: Fever >100.4 F Last Admin: 01/19/19 21:26 Dose: 650 mg Benzocaine/Menthol (Cepacol Sore Throat) 1 tanya MT Q4 [facility] Last Admin: 01/20/19 11:57 Dose: 1 tanya Bethanechol Chloride (Urecholine) 25 mg PO TID [facility] Last Admin: 01/20/19 14:36 Dose: 25 mg Diphenhydramine HCl (Benadryl) 25 mg PO Q6 PRN PRN Reason: Allergy symptoms Last Admin: 01/19/19 21:27 Dose: 25 mg Docusate Sodium (Colace) 100 mg PO BID PRN PRN Reason: Constipation Last Admin: 01/16/19 10:15 Dose: 100 mg Enoxaparin Sodium (Lovenox) 40 mg SC DAILY [facility] Last Admin: 01/20/19 10:20 Dose: 40 mg Ferrous Sulfate (Feosol) 325 mg PO DAILY [facility] Last Admin: 01/20/19 10:10 Dose: 325 mg Guaifenesin (Robitussin) 100 mg PO Q4H PRN PRN Reason: Cough Last Admin: 01/19/19 21:27 Dose: 100 mg Guaifenesin (Mucinex La) 600 mg PO BID [facility] Last Admin: 01/20/19 10:15 Dose: 600 mg Meropenem 500 mg/ Sodium (Chloride) 100 mls @ 100 mls/hr IVPB Q8H [facility]; Protocol Last Admin: 01/20/19 11:56 Dose: 100 mls/hr Vancomycin HCl 750 mg/ Sodium (Chloride) 250 mls @ 166.6 mls/hr IVPB Q12H [facility]; Protocol Last Admin: 01/20/19 05:58 Dose: 166.6 mls/hr Magnesium Hydroxide (Milk Of Magnesia) 30 ml PO DAILY PRN PRN Reason: Constipation Methylprednisolone (Solu-Medrol) 20 mg IVP Q12 [facility] Last Admin: 01/20/19 10:09 Dose: 20 mg Multivitamins (Hexavitamin) 1 tab PO DAILY [facility] Last Admin: 01/20/19 10:25 Dose: 1 tab Pantoprazole Sodium (Protonix Ec Tab) 40 mg PO DAILY [facility] Last Admin: 01/20/19 10:10 Dose: 40 mg Phenobarbital (Phenobarbital Tab) 64.8 mg PO Q8 [facility] Last Admin: 01/20/19 14:36 Dose: 64.8 mg Potassium Chloride (K-Dur 20 Meq Er Tab) 20 meq PO DAILY [facility] Stop: 01/22/19 10:01 Last Admin: 01/20/19 10:20 Dose: 20 meq - Labs Labs: 01/18/19 10:00 01/20/19 07:27 PT 13.9 SECONDS (9.7-12.2) H 01/13/19 18:01 INR 1.3 01/13/19 18:01 APTT 37 SECONDS (21-34) H 01/13/19 18:01 Assessment and Plan - Assessment and Plan (Free Text) Assessment: 83 year old female admitted with influenza, weakness, cough, seen and examined. Alert, awake, denies any pain. Discussed with DR Anaya and DR Rodas, plan to discharge to [facility] today on meropenum and vibramycin.
--- NOTE | 2019-01-20 23:25 | CARD ---
APPROVED REPORT Date of service: 01/19/2019 EXAM: Two-dimensional and M-mode echocardiogram with Doppler and color Doppler. INDICATION Rule out subacute bacterial endocarditis fever 2D DIMENSIONS IVSd1.2 (0.7-1.1cm)LVDd3.5 (3.9-5.9cm) PWd0.9 (0.7-1.1cm)LA [id number] (18-58mL) LVDs2.1 (2.5-4.0cm)FS (%) 40.2 % LVEF (%)71.9 (>50%)LVEF (Zheng's)71.83 % M-Mode DIMENSIONS Left Atrium (MM)2.91 (2.5-4.0cm)Aortic Root3.53 (2.2-3.7cm) Aortic Cusp Exc.2.04 (1.5-2.0cm) Mitral Valve MV E Yxmjsdkw92.4cm/sMV A Zhfihelc41.2cm/sE/A ratio0.8 TDI Lateral E' Peak V9.58cm/sMedial E' Peak V5.71cm/sE/Lateral E'6.2 E/Medial E'10.4 LEFT VENTRICLE The left ventricle is normal size. There is normal left ventricular wall thickness. The left ventricular function is normal. The left ventricular ejection fraction is within the normal range. There is normal LV segmental wall motion. Transmitral Doppler flow pattern is abnormal. RIGHT VENTRICLE The right ventricle is normal size. ATRIA The left atrium size is normal. The right atrium size is normal. AORTIC VALVE There is trace aortic regurgitation. MITRAL VALVE The mitral valve is normal in structure. TRICUSPID VALVE There is mild tricuspid regurgitation. <Conclusion> Normal LV systolic function. Diastolic dysfunction. Trace AR. Normal chamber size.
--- NOTE | 2019-01-22 07:22 | DS ---
DISCHARGE DIAGNOSES: 1. Flu. 2. Urinary tract infection. 3. Dehydration. 4. Diabetes. 5. Hypertension. The patient is an elderly white female who was admitted from subacute rehab. The patient was found to have flu, fever, chills, rigors. She was also found to have urinary tract infection, and the patient was given IV fluids, hydration, Tamiflu, and urine culture, and the patient was placed on antibiotics. The patient's condition improved. Her flu got corrected. Her cough, congestion, wheezing improved. She did require doses of Solu-Medrol 15, and she also received antibiotics for urinary tract infection, and she is for transfer back to subacute rehab. Abraham Rodas MD
== END 2019-01-20 15:50 | DRG 194 ==
LOC: C.ER 17:00 → C.9E 18:38 → C.6T 18:57
PROVIDERS: ADMIT Internal Medicine; ATTEND Internal Medicine
DX: J09.X1 Influenza due to identified novel influenza A virus with pneumonia (principal); I69.351 Hemiplegia and hemiparesis following cerebral infarction affecting right dominant side; N39.0 Urinary tract infection, site not specified; E22.2 Syndrome of inappropriate secretion of antidiuretic hormone; R53.81 Other malaise; E86.0 Dehydration; G40.909 Epilepsy, unspecified, not intractable, without status epilepticus; E87.6 Hypokalemia; Z74.01 Bed confinement status; Z90.49 Acquired absence of other specified parts of digestive tract